=== PATIENT | male | born 1965 | race Caucasian/White ===

== ENCOUNTER 2018-08-11 12:25 | Inpatient (IN) | payer OTHER ==
--- NOTE | 2018-08-11 13:11 | HP ---
CIWA Score - CIWA Score Nausea/Vomitin Muscle Tremors: 2 Anxiety: 2 Agitation: 2 Paroxysmal Sweats: 1-Minimal Palms Moist Orientation: 0-Oriented Tacttile Disturbances: 1-Very Mild Itch/Numbness Auditory Disturbances: 1-Very Mild Visual Disturbances: 0-None Headache: 2-Mild CIWA-Ar Total Score: 13 Admission ROS BHS - HPI Chief Complaint: i need help to stop drinking alcohol Allergies/Adverse Reactions: Allergies Allergy/AdvReac Type Severity Reaction Status Date / Time Penicillins Allergy Verified 08/11/18 13:04 History of Present Illness: this 52 years old male with alcohol and marijuana dependence,seeking detox, withdrawal symptom,last detox aci 07/16 completed history of hypertension no med insomnia positive ppd weight loss depression longest period of sobriety 12 years depression,insomnia - Ebola screening Have you traveled outside of the country in the last 21 days: No (N) Have you had contact with anyone from an Ebola affected area: No Do you have a fever: No - Review of Systems Constitutional: Loss of Appetite, Malaise, Night Sweats, Changes in sleep, Weakness, Unintentional Wgt. Loss EENT: reports: Nose Congestion Respiratory: reports: No Symptoms reported Cardiac: reports: Palpitations GI: reports: Nausea, Indigestion, Abdominal cramping : reports: No Symptoms Reported Musculoskeletal: reports: Back Pain, Muscle Pain Integumentary: reports: Dryness Neuro: reports: Tremors Endocrine: reports: No Symptoms Reported Hematology: reports: No Symptoms Reported Psychiatric: reports: Depressed Patient History - Patient Medical History Hx Anemia: No Hx Asthma: No Hx Chronic Obstructive Pulmonary Disease (COPD): No Hx Cancer: No Hx Cardiac Disorders: No Hx Congestive Heart Failure: No Hx Hypertension: Yes (no med) Hx Hypercholesterolemia: No Hx Pacemaker: No HX Cerebrovascular Accident: No Hx Seizures: No Hx Dementia: No Hx Diabetes: No Hx Gastrointestinal Disorders: No Hx Liver Disease: No Hx Genitourinary Disorders: No Hx Sexually Transmitted Disorders: No Hx Renal Disease (ESRD): No Hx Thyroid Disease: No Hx Human Immunodeficiency Virus (HIV): No (2017) Hx Hepatitis C: No Hx Depression: Yes Hx Suicide Attempt: No Hx Bipolar Disorder: No Hx Schizophrenia: No Other Medical History: insomnia,no suicidal,no homicidal - Patient Surgical History Past Surgical History: No - PPD History Previous Implant?: Yes Documented Results: Positive w/o proof PPD to be Administered?: No - Smoking Cessation Smoking history: Current every day smoker Have you smoked in the past 12 months: Yes Aproximately how many cigarettes per day: 10 Hx Chewing Tobacco Use: No Initiated information on smoking cessation: Yes 'Breaking Loose' booklet given: 08/11/18 - Substance & Tx. History Hx Alcohol Use: Yes Hx Substance Use: Yes Substance Use Type: Alcohol Hx Substance Use Treatment: Yes (last 07/16 completed) - Substances Abused Alcohol Route: Oral Frequency: Daily Amount used: 2pints of whiskey/6 packs of 12 ozs of beer Age of first use: 21 Date of Last Use: 08/10/18 Family Disease History - Family Disease History Family Disease History: Other: Father (), Mother (chunghrosis,) Admission Physical Exam S - Vital Signs Vital Signs: Vital Signs Temperature 97.3 F L 08/12/18 06:00 Pulse Rate 70 08/12/18 06:00 Respiratory Rate 18 08/12/18 06:00 Blood Pressure 134/93 08/12/18 06:00 O2 Sat by Pulse Oximetry (%) - Physical General Appearance: Yes: Moderate Distress, Tremorous, Irritable, Sweating, Anxious HEENTM: Yes: Normal ENT Inspection, NESSA, Pharynx Normal Respiratory: Yes: Lungs Clear, Normal Breath Sounds, No Respiratory Distress Neck: Yes: Within Normal Limits, Supple, Trachea in good position Breast: Yes: Within Normal Limits Cardiology: Yes: Within Normal Limits, Regular Rhythm, Regular Rate, S1, S2 Abdominal: Yes: Within Normal Limits, Normal Bowel Sounds, Non Tender, Flat, Soft Genitourinary: Yes: Within Normal Limits Back: Yes: Muscle Spasm Musculoskeletal: Yes: Back pain, Muscle Pain Extremities: Yes: Tremors Neurological: Yes: Alert, Motor Strength 5/5, Normal Mood/Affect Integumentary: Yes: Dry Lymphatic: Yes: Within Normal Limits - Diagnostic (1) Alcohol dependence with uncomplicated withdrawal Current Visit: Yes Status: Acute (2) Syncope Current Visit: Yes Status: Acute (3) Essential hypertension Current Visit: Yes Status: Acute (4) Weight loss Current Visit: Yes Status: Acute (5) Positive PPD Current Visit: Yes Status: Acute (6) Depression Current Visit: Yes Status: Acute (7) Anxiety Current Visit: Yes Status: Acute Cleared for Admission S - Detox or Rehab [facility] Level of Care: Medically Managed Detox Regimen/Protocol: Librium
[2018-08-11 13:26] VITALS: BMI 23.6
[2018-08-11] MEDS ORDERED: ACETAMINOPHEN 325 MG TABLET (FP) PO PRN (13:28)
[2018-08-11] MEDS ORDERED: IBUPROFEN 400 MG TABLET (FP) PO PRN (13:28)
[2018-08-11] MEDS ORDERED: hydrOXYzine PAMOATE 25 MG CAPSULE (FP) PO PRN (13:28)
[2018-08-11] MEDS ORDERED: MAGNESIUM HYDROX 2400MG/30ML ORAL SUSPENSION 30 ML CUP PO PRN (13:28)
[2018-08-11] MEDS ORDERED: P-EPHED 60MG/TRIPROLIDI 2.5MG TABLET PO PRN (13:28)
[2018-08-11] MEDS ORDERED: LOPERAMIDE HCL 2 MG CAPSULE PO PRN (13:28)
[2018-08-11] MEDS ORDERED: MENTHOL/PHENOL 1 EACH UD MM PRN (13:28)
[2018-08-11] MEDS ORDERED: MAGNESIUM CITRATE 300 ML BOTTLE PO PRN (13:28)
[2018-08-11] MEDS ORDERED: MAG HYDROX/AL HYDROX/SIMETH 30 ML UNIT-DOSE CUP PO PRN (13:28)
[2018-08-11 17:11] LABS: URINE APPEARANCE CLEAR; URINE BILIRUBIN NEGATIVE (<2.0 mg/dL); URINE COLOR LTYELLOW; URINE GLUCOSE (UA) NEGATIVE (NEGATIVE); URINE KETONE NEGATIVE (NEGATIVE); URINE LEUK ESTERASE NEGATIVE (NEGATIVE); URINE NITRITE NEGATIVE (NEGATIVE); URINE PROTEIN NEGATIVE (NEGATIVE); URINE UROBILINOGEN NEGATIVE mg/dL (0.2-1.0)
[2018-08-11] MEDS ORDERED: chlordiazePOXIDE HCL 25 MG CAPSULE PO PRN (17:15)
[2018-08-11] MEDS: NICOTINE 21 MG/24 HOURS TOPICAL PATCH TD SCH (18:04)
[2018-08-11] MEDS: chlordiazePOXIDE HCL 25 MG CAPSULE PO SCH (22:55)
[2018-08-11] MEDS: THIAMINE HCL 100 MG TABLET (FP) PO SCH (22:56)
[2018-08-12] MEDS: chlordiazePOXIDE HCL 25 MG CAPSULE PO SCH ×4 (06:43→22:46)
--- NOTE | 2018-08-12 07:38 | CONSULT ---
[facility] Psychiatric Consult - Data Date of interview: 08/12/18 Admission source: [facility] Identifying data: This is a 52 years old male, single father of one, homless, on PA, with no psychiatric hospitalization history, reports Alcohol and Nicotine dependence, reports Alcohol withdrawal symptoms and seeking detox. Denies suicdial, homicidal history. Substance Abuse History: Smoking history: Current every day smoker. Have you smoked in the past 12 months: Yes. Aproximately how many cigarettes per day: 10. Hx Chewing Tobacco Use: No. Initiated information on smoking cessation: Yes. 'Breaking Loose' booklet given: 08/11/18. - Substance & Tx. History. Hx Alcohol Use: Yes. Hx Substance Use: Yes. Substance Use Type: Alcohol. Hx Substance Use Treatment: Yes (last 07/16 completed). - Substances Abused. Alcohol. Route: Oral. Frequency: Daily. Amount used: 2pints of whiskey/6 packs of 12 ozs of beer. Age of first use: 21. Date of Last Use: 08/10/18 Medical History: HTN, Weight loss history, PPD + history Psychiatric History: Patient reports history of depression and anxiety, denies psychiatric hospitalization history, suicidal, homicisdal hisotry, reports no medications taking prior to admission. Physical/Sexual Abuse/Trauma History: Denies Additional Comment: Observation. Detox Unit Carev Protocol Mental Status Exam - Mental Status Exam Alert and Oriented to: Person Cognitive Function: Fair Mood: Apprehensive Affect: Mood Congruent Patient Behavior: Cooperative Speech Pattern: Appropriate Voice Loudness: Normal Thought Process: Goal Oriented Thought Disorder: Being Controlled Hallucinations: Denies Suicidal Ideation: Denies Homicidal Ideation: Denies Insight/Judgement: Fair Sleep: Difficulty falling asleep Appetite: Weight loss Muscle strength/Tone: Normal Gait/Station: Normal Additional Comments: Observation. Detox Unit Carev Protocol Psychiatric Findings - Problem List ([place] 1, 2,3) (1) Nicotine dependence Current Visit: Yes Status: Acute (2) Alcohol dependence with uncomplicated withdrawal Current Visit: Yes Status: Acute (3) Depression Current Visit: Yes Status: Acute (4) Essential hypertension Current Visit: Yes Status: Acute (5) Positive PPD Current Visit: Yes Status: Acute (6) Syncope Current Visit: Yes Status: Acute (7) Weight loss Current Visit: Yes Status: Acute - Initial Treatment Plan Initial Treatment Plan: Observation. Detox Unit Carev Protocol
[2018-08-12 10:14] LABS: HEMATOCRIT 37.8 % (35.4-49); HEMOGLOBIN 12.7 GM/dL (11.7-16.9); MCH 30.1 pg (25.7-33.7); MCHC 33.5 g/dl (32.0-35.9); MEAN CELL VOLUME 89.7 fl (80-96); MEAN PLT VOLUME 8.2 fl (7.5-11.1); PLATELET COUNT 225 K/MM3 (134-434); RBC 4.21 M/mm3 (4.00-5.60); RDW 12.8 % (11.9-15.9); WHITE BLOOD COUNT 7.9 K/mm3 (4.0-10.0)
[2018-08-12] MEDS: PRENATAL VITAMINS W/ FOLIC ACID TABLET (FP) PO SCH (10:17)
[2018-08-12] MEDS: NICOTINE POLACRILEX 2 MG GUM BUC PRN (10:17)
[2018-08-12] MEDS: NICOTINE 21 MG/24 HOURS TOPICAL PATCH TD SCH (10:17)
[2018-08-12 10:40] LABS: ALBUMIN 3.4 g/dl (3.4-5.0); ALK PHOS 71 U/L (45-117); ANION GAP 4 MMOL/L (8-16); BILIRUBIN,TOTAL 0.3 mg/dL (0.2-1); BLOOD UREA NITROGEN 11 mg/dL (7-18); CALCIUM 9.1 mg/dL (8.5-10.1); CHLORIDE 104 mmol/L (98-107); CO2 27 mmol/L (21-32); CREATININE 0.6 mg/dL (0.55-1.3); GLUCOSE,RANDOM 74 mg/dL (74-106); POTASSIUM 4.3 mmol/L (3.5-5.1); SGOT/AST 16 U/L (15-37); SGPT/ALT 25 U/L (13-61); SODIUM 136 mmol/L (136-145); TOT PROT 6.8 g/dl (6.4-8.2)
--- NOTE | 2018-08-12 10:42 | EKG ---
Test Reason : Blood Pressure : / mmHG Vent. Rate : 071 BPM Atrial Rate : 071 BPM P-R Int : 186 ms QRS Dur : 108 ms QT Int : 400 ms P-R-T Axes : 075 -11 068 degrees QTc Int : 434 ms NORMAL SINUS RHYTHM RIGHT ATRIAL ENLARGEMENT BORDERLINE ECG NO PREVIOUS ECGS AVAILABLE Confirmed by VANESSA AGUIRRE MD ([id number]) on 08/12/2018 10:42:00 AM Referred By: Confirmed By:VANESSA AGUIRRE MD
--- NOTE | 2018-08-12 11:11 | PN ---
S CIWA - CIWA Score Nausea/Vomitin-No Nausea/No Vomiting Muscle Tremors: 4-Moderate,w/Arms Extend Anxiety: 4-Mod. Anxious/Guarded Agitation: 4-Moderately Restless Paroxysmal Sweats: 3 Orientation: 0-Oriented Tacttile Disturbances: 0-None Auditory Disturbances: 0-None Visual Disturbances: 0-None Headache: 0-None Present CIWA-Ar Total Score: 15 BHS Progress Note (SOAP) Subjective: irritable agitation interrupted sleep diarrhea sweats Objective: 08/12/18 11:09 Vital Signs Temperature 99.0 F 08/12/18 09:12 Pulse Rate 72 08/12/18 09:12 Respiratory Rate 18 08/12/18 09:12 Blood Pressure 130/91 08/12/18 09:12 O2 Sat by Pulse Oximetry (%) Laboratory Tests 08/11/18 08/12/18 08/12/18 15:04 07:00 07:00 WBC 7.9 RBC 4.21 Hgb 12.7 Hct 37.8 MCV 89.7 MCH 30.1 MCHC 33.5 RDW 12.8 Plt Count 225 MPV 8.2 Sodium 136 Potassium 4.3 Chloride 104 Carbon Dioxide 27 Anion Gap 4 L BUN 11 Creatinine 0.6 Creat Clearance w eGFR > 60 Random Glucose 74 Calcium 9.1 Total Bilirubin 0.3 AST 16 ALT 25 Alkaline Phosphatase 71 Total Protein 6.8 Albumin 3.4 Urine Color Ltyellow Urine Appearance Clear Urine pH 7.0 Ur Specific [place] 1.017 Urine Protein Negative Urine Glucose (UA) Negative Urine Ketones Negative Urine Blood Negative Urine Nitrite Negative Urine Bilirubin Negative Urine Urobilinogen Negative Ur Leukocyte Esterase Negative aaox3 ambulating no acute distress Assessment: 08/12/18 11:10 withdrawal sx Plan: continue detox increase fluids encouraged pt to ask for sleeping aide this evening.
[2018-08-12] MEDS ORDERED: FLU VACCINE QUAD 60 MCG/0.5 ML (MDV 18-19) IM ONE (12:00)
[2018-08-12] MEDS: MELATONIN 5 MG TABLETS PO PRN (22:46)
[2018-08-12] MEDS: THIAMINE HCL 100 MG TABLET (FP) PO SCH (22:46)
[2018-08-13] MEDS: chlordiazePOXIDE HCL 25 MG CAPSULE PO SCH ×3 (07:24→17:36)
--- NOTE | 2018-08-13 11:24 | PN ---
[facility] CIWA - CIWA Score Nausea/Vomitin-No Nausea/No Vomiting Muscle Tremors: 3 Anxiety: 3 Agitation: 2 Paroxysmal Sweats: 2 Orientation: 0-Oriented Tacttile Disturbances: 0-None Auditory Disturbances: 0-None Visual Disturbances: 0-None Headache: 0-None Present CIWA-Ar Total Score: 10 [facility] Progress Note (SOAP) Subjective: mild shakes little sweats coughing Objective: 08/13/18 11:23 Vital Signs Temperature 98.2 F 08/13/18 09:43 Pulse Rate 89 08/13/18 09:43 Respiratory Rate 20 08/13/18 09:43 Blood Pressure 129/93 08/13/18 09:43 O2 Sat by Pulse Oximetry (%) Laboratory Tests 08/11/18 08/12/18 08/12/18 15:04 07:00 07:00 WBC 7.9 RBC 4.21 Hgb 12.7 Hct 37.8 MCV 89.7 MCH 30.1 MCHC 33.5 RDW 12.8 Plt Count 225 MPV 8.2 Sodium 136 Potassium 4.3 Chloride 104 Carbon Dioxide 27 Anion Gap 4 L BUN 11 Creatinine 0.6 Creat Clearance w eGFR > 60 Random Glucose 74 Calcium 9.1 Total Bilirubin 0.3 AST 16 ALT 25 Alkaline Phosphatase 71 Total Protein 6.8 Albumin 3.4 Urine Color Ltyellow Urine Appearance Clear Urine pH 7.0 Ur Specific [place] 1.017 Urine Protein Negative Urine Glucose (UA) Negative Urine Ketones Negative Urine Blood Negative Urine Nitrite Negative Urine Bilirubin Negative Urine Urobilinogen Negative Ur Leukocyte Esterase Negative RPR Titer 08/12/18 07:00 WBC RBC Hgb Hct MCV MCH MCHC RDW Plt Count MPV Sodium Potassium Chloride Carbon Dioxide Anion Gap BUN Creatinine Creat Clearance w eGFR Random Glucose Calcium Total Bilirubin AST ALT Alkaline Phosphatase Total Protein Albumin Urine Color Urine Appearance Urine pH Ur Specific [place] Urine Protein Urine Glucose (UA) Urine Ketones Urine Blood Urine Nitrite Urine Bilirubin Urine Urobilinogen Ur Leukocyte Esterase RPR Titer Nonreactive aaox3 ambulating no acute distress Assessment: 08/13/18 11:23 withdrawal sx Plan: continue detox increase fluids robitussion prn
[2018-08-13] MEDS: PRENATAL VITAMINS W/ FOLIC ACID TABLET (FP) PO SCH (11:53)
[2018-08-13] MEDS: NICOTINE 21 MG/24 HOURS TOPICAL PATCH TD SCH (11:53)
[2018-08-13] MEDS: guaiFENesin/D-METHORPHAN HB 10 ML UNIT-DOSE CUPS PO PRN (14:17)
[2018-08-13] MEDS: chlordiazePOXIDE 5 MG CAPSULE PO SCH (22:13)
[2018-08-13] MEDS: THIAMINE HCL 100 MG TABLET (FP) PO SCH (22:13)
[2018-08-13] MEDS: MELATONIN 5 MG TABLETS PO PRN (22:15)
[2018-08-14] MEDS: guaiFENesin/D-METHORPHAN HB 10 ML UNIT-DOSE CUPS PO PRN (06:49)
[2018-08-14] MEDS: chlordiazePOXIDE 5 MG CAPSULE PO SCH ×3 (06:49→18:00)
[2018-08-14] MEDS: NICOTINE POLACRILEX 2 MG GUM BUC PRN (06:50)
--- NOTE | 2018-08-14 10:39 | PN ---
BHS Progress Note (SOAP) Subjective: feeling better little sweats Objective: 08/14/18 10:37 Vital Signs Temperature 98.3 F 08/14/18 10:10 Pulse Rate 85 08/14/18 10:10 Respiratory Rate 18 08/14/18 10:10 Blood Pressure 156/96 08/14/18 10:10 O2 Sat by Pulse Oximetry (%) aaox3 ambulating no acute distress Assessment: 08/14/18 10:39 withdrawal sx Plan: continue detox increase fluids d/c in am
[2018-08-14] MEDS: PRENATAL VITAMINS W/ FOLIC ACID TABLET (FP) PO SCH (11:08)
[2018-08-14] MEDS: NICOTINE 21 MG/24 HOURS TOPICAL PATCH TD SCH (11:08)
[2018-08-14] MEDS: THIAMINE HCL 100 MG TABLET (FP) PO SCH (23:13)
[2018-08-14] MEDS: chlordiazePOXIDE HCL 10 MG CAPSULE PO SCH (23:13)
[2018-08-14] MEDS: MELATONIN 5 MG TABLETS PO PRN (23:14)
[2018-08-15] MEDS: chlordiazePOXIDE HCL 10 MG CAPSULE PO SCH ×2 (05:42→10:00)
[2018-08-15] MEDS: guaiFENesin/D-METHORPHAN HB 10 ML UNIT-DOSE CUPS PO PRN (05:43)
--- NOTE | 2018-08-15 09:05 | DS ---
[facility] Detox Discharge Summary Admission Date: 08/11/18 Discharge Date: 08/15/18 - History Present History: Alcohol Dependence - Physical Exam Results Vital Signs: Vital Signs Temperature 98.1 F 08/15/18 08:11 Pulse Rate 81 08/15/18 08:11 Respiratory Rate 18 08/15/18 08:11 Blood Pressure 130/93 08/15/18 08:11 O2 Sat by Pulse Oximetry (%) - Treatment Hospital Course: Detox Protocol Followed, Detoxed Safely, Responded well, Discharged Condition Good, Rehab Referral Accepted - Medication Discharge Medications: Ambulatory Orders NK [No Known Home Medication] 08/11/18 - Diagnosis (1) Alcohol dependence with uncomplicated withdrawal Current Visit: Yes Status: Chronic (2) Anxiety Current Visit: Yes Status: Acute (3) Depression Current Visit: Yes Status: Acute (4) Essential hypertension Current Visit: Yes Status: Chronic (5) Nicotine dependence Current Visit: Yes Status: Chronic Qualifiers: Nicotine product type: cigarettes Substance use status: uncomplicated Qualified Code(s): F17.210 - Nicotine dependence, cigarettes, uncomplicated (6) Positive PPD Current Visit: Yes Status: Acute (7) Syncope Current Visit: Yes Status: Acute (8) Weight loss Current Visit: Yes Status: Acute - AMA Did Patient Leave Against Medical Advice: No (referred to outpatient. pt refused to go to [facility]. )
[2018-08-15 11:41] VITALS: BP 125/80; PULSE 97; TEMP 98.4
[2018-08-15] MEDS: NICOTINE 21 MG/24 HOURS TOPICAL PATCH TD SCH (12:21)
[2018-08-15] MEDS: PRENATAL VITAMINS W/ FOLIC ACID TABLET (FP) PO SCH (12:21)
== END 2018-08-15 10:40 | disposition home or self-care (01) | DRG 775 ==
LOC: YASAS 12:25 → Y6N 14:15
PROC: HZ2ZZZZ Detoxification Services for Substance Abuse Treatment (ICD-10-PCS; principal; 2018-08-11)
DX: F10.230 Alcohol dependence with withdrawal, uncomplicated (principal); F17.210 Nicotine dependence, cigarettes, uncomplicated; F41.9 Anxiety disorder, unspecified; F32.9 Major depressive disorder, single episode, unspecified; R76.11 Nonspecific reaction to tuberculin skin test without active tuberculosis; Z87.898 Personal history of other specified conditions
CPT/HCPCS: 36415; 71046-TC-FY; 80053; 81003; 85027; 86593; 90688; 93005; 93010; G0008

== ENCOUNTER 2018-12-18 10:08 | Inpatient (IN) | payer OTHER ==
[2018-12-18 10:11] VITALS: BMI 26.4
--- NOTE | 2018-12-18 13:44 | HP ---
CIWA Score Nausea/Vomitin Muscle Tremors: 2 Anxiety: 2 Agitation: 2 Paroxysmal Sweats: 1-Minimal Palms Moist Orientation: 0-Oriented Tacttile Disturbances: 1-Very Mild Itch/Numbness Auditory Disturbances: 1-Very Mild Visual Disturbances: 0-None Headache: 2-Mild CIWA-Ar Total Score: 13 - Admission Criteria [facility] Guidelines: Admission for Medically Managed Detox: Requires at least one of the followin. CIWA greater than 12 2. Seizures within the past 24 hours 3. Delirium tremens within the past 24 hours 4. Hallucinations within the past 24 hours 5. Acute intervention needed for co occurring medical disorder 6. Acute intervention needed for co occurring psychiatric disorder 7. Severe withdrawal that cannot be handled at a lower level of care (continued vomiting, continued diarrhea, abnormal vital signs) requiring intravenous medication and/or fluids 8. Patient presents the following: CIWA greater than 12 Admission Criteria Met: Admission criteria met Admission ROS BHS - HPI Chief Complaint: i need help to stop drinking alcohol Allergies/Adverse Reactions: Allergies Allergy/AdvReac Type Severity Reaction Status Date / Time Penicillins Allergy Verified 12/18/18 13:37 History of Present Illness: this 53 years old male with alcohol dependence seeking detox,withdrawal symptom, last detox aci 10 days ago history of hypertension on med,non compliance nicotine dependence anxiety depression multiple admissions in detox but keep relapsing longest period of sobriety 10 years Exam Limitations: No Limitations - Ebola screening Have you traveled outside of the country in the last 21 days: No Have you had contact with anyone from an Ebola affected area: No Have you been sick,other than usual withdrawal symptoms: No - Review of Systems Constitutional: Malaise, Night Sweats, Changes in sleep, Weakness EENT: reports: Tearing, Nose Congestion Respiratory: reports: No Symptoms reported Cardiac: reports: No Symptoms Reported GI: reports: Nausea, Abdominal cramping : reports: No Symptoms Reported Musculoskeletal: reports: Back Pain, Muscle Pain Integumentary: reports: Dryness Neuro: reports: Headache, Tremors Endocrine: reports: No Symptoms Reported Hematology: reports: No Symptoms Reported Psychiatric: reports: No Sypmtoms Reported, Judgement Intact, Mood/Affect Appropiate, Orientated x3, Anxious, Depressed Other Systems: Reviewed and Negative Patient History - Patient Medical History Hx Anemia: No Hx Asthma: No Hx Chronic Obstructive Pulmonary Disease (COPD): No Hx Cancer: No Hx Cardiac Disorders: No Hx Congestive Heart Failure: No Hx Hypertension: Yes (no med non comoliance) Hx Hypercholesterolemia: No Hx Pacemaker: No HX Cerebrovascular Accident: No Hx Seizures: No Hx Dementia: No Hx Diabetes: No Hx Gastrointestinal Disorders: No Hx Liver Disease: No Hx Genitourinary Disorders: No Hx Sexually Transmitted Disorders: No Hx Renal Disease (ESRD): No Hx Thyroid Disease: No Hx Human Immunodeficiency Virus (HIV): No (negative 2018) Hx Hepatitis C: No Hx Depression: Yes (anxiety) Hx Suicide Attempt: No Hx Bipolar Disorder: No Hx Schizophrenia: No Other Medical History: no suicidal,no homicidal - Patient Surgical History Past Surgical History: No Hx Neurologic Surgery: No Hx Cataract Extraction: No Hx Cardiac Surgery: No Hx Lung Surgery: No Hx Breast Surgery: No Hx Breast Biopsy: No Hx Abdominal Surgery: No Hx Appendectomy: No Hx Cholecystectomy: No Hx Genitourinary Surgery: No Hx Section: No Hx Orthopedic Surgery: No Anesthesia Reaction: No - PPD History Previous Implant?: Yes Documented Results: Positive w/proof Implanted On Prior R Admission?: No PPD to be Administered?: No - Smoking Cessation Smoking history: Current every day smoker Have you smoked in the past 12 months: Yes Aproximately how many cigarettes per day: 10 Hx Chewing Tobacco Use: No Initiated information on smoking cessation: Yes 'Breaking Loose' booklet given: 12/18/18 - Substance & Tx. History Hx Alcohol Use: Yes Hx Substance Use: Yes Substance Use Type: Alcohol, Marijuana Hx Substance Use Treatment: Yes (aci aci 12/04/18 to 12/08/18) - Substances Abused Alcohol Route: Oral Frequency: Daily Amount used: 1 pint rum Age of first use: 18 Date of Last Use: 12/18/18 Marijuana/Hashish Route: Smoking Frequency: Daily Amount used: $10 Age of first use: 18 Date of Last Use: 12/04/18 Family Disease History - Family Disease History Family Disease History: Other: Father (), Mother (alcohol,, cirrhosis) Admission Physical Exam BHS - Vital Signs Vital Signs: Vital Signs - 24 hr 12/18/18 10:10 Temperature 96.6 F L Pulse Rate 93 H Respiratory 18 Rate Blood Pressure 123/81 - Physical General Appearance: Yes: Moderate Distress, Irritable, Sweating, Anxious HEENTM: Yes: Normal ENT Inspection, NESSA, Pharynx Normal Respiratory: Yes: Lungs Clear, Normal Breath Sounds, No Respiratory Distress Neck: Yes: Within Normal Limits, Supple, Trachea in good position Breast: Yes: Within Normal Limits Cardiology: Yes: Within Normal Limits, Regular Rhythm, Regular Rate, S1, S2 Abdominal: Yes: Within Normal Limits, Normal Bowel Sounds, Non Tender, Flat, Soft Genitourinary: Yes: Within Normal Limits Back: Yes: Muscle Spasm Musculoskeletal: Yes: Back pain, Muscle Pain Extremities: Yes: Within Normal Limits, Normal Range of Motion, Tremors Neurological: Yes: property developer II-XII NML intact, Fully Oriented, Alert, Motor Strength 5/5 Integumentary: Yes: Dry Lymphatic: Yes: Within Normal Limits - Diagnostic (1) Alcohol dependence with uncomplicated withdrawal Current Visit: No Status: Chronic (2) Anxiety Current Visit: No Status: Acute (3) Depression Current Visit: No Status: Acute (4) Positive PPD Current Visit: No Status: Acute (5) Syncope Current Visit: No Status: Acute (6) Weight loss Current Visit: No Status: Acute (7) Essential hypertension Current Visit: No Status: Chronic (8) Nicotine dependence Current Visit: No Status: Chronic Qualifiers: Nicotine product type: cigarettes Substance use status: uncomplicated Qualified Code(s): F17.210 - Nicotine dependence, cigarettes, uncomplicated Cleared for Admission S - Detox or Rehab [facility] Level of Care: Medically Managed Detox Regimen/Protocol: Librium S Breath Alcohol Content Breath Alcohol Content: 0.026 Urine Drug Screen - Results Drug Screen Negative: No Urine Drug Screen Results: THC-Marijuana, BZO-Benzodiazepines Inpatient Rehab Admission - Rehab Decision to Admit Inpatient rehab admission?: No
[2018-12-18] MEDS ORDERED: chlordiazePOXIDE HCL 25 MG CAPSULE PO PRN (13:53)
[2018-12-18] MEDS ORDERED: LOPERAMIDE HCL 2 MG CAPSULE PO PRN (13:53)
[2018-12-18] MEDS ORDERED: MAG HYDROX/AL HYDROX/SIMETH 30 ML UNIT-DOSE CUP PO PRN (13:53)
[2018-12-18] MEDS ORDERED: ACETAMINOPHEN 325 MG TABLET (FP) PO PRN (13:53)
[2018-12-18] MEDS ORDERED: hydrOXYzine PAMOATE 50 MG CAPSULE (FP) PO PRN (13:53)
[2018-12-18] MEDS ORDERED: P-EPHED 60MG/TRIPROLIDI 2.5MG TABLET PO PRN (13:53)
[2018-12-18] MEDS ORDERED: MENTHOL/PHENOL 1 EACH UD MM PRN (13:53)
[2018-12-18] MEDS ORDERED: guaiFENesin/D-METHORPHAN HB 10 ML UNIT-DOSE CUPS PO PRN (13:53)
[2018-12-18] MEDS ORDERED: IBUPROFEN 400 MG TABLET (FP) PO PRN (13:53)
[2018-12-18] MEDS ORDERED: MAGNESIUM HYDROX 2400MG/30ML ORAL SUSPENSION 30 ML CUP PO PRN (13:53)
[2018-12-18] MEDS ORDERED: MAGNESIUM CITRATE 300 ML BOTTLE PO PRN (13:53)
[2018-12-18] MEDS: chlordiazePOXIDE HCL 25 MG CAPSULE PO SCH ×2 (18:07→22:47)
[2018-12-18 20:52] LABS: URINE APPEARANCE TURBID; URINE BILIRUBIN NEGATIVE (<2.0 mg/dL); URINE COLOR YELLOW; URINE GLUCOSE (UA) NEGATIVE (NEGATIVE); URINE KETONE NEGATIVE (NEGATIVE); URINE LEUK ESTERASE NEGATIVE (NEGATIVE); URINE NITRITE NEGATIVE (NEGATIVE); URINE PROTEIN NEGATIVE (NEGATIVE); URINE UROBILINOGEN NEGATIVE mg/dL (0.2-1.0)
[2018-12-18] MEDS ORDERED: MELATONIN 5 MG TABLETS PO PRN (22:00)
[2018-12-18] MEDS: THIAMINE HCL 100 MG TABLET (FP) PO SCH (22:47)
[2018-12-19] MEDS: chlordiazePOXIDE HCL 25 MG CAPSULE PO SCH ×4 (06:39→23:33)
[2018-12-19] MEDS: PRENATAL VITAMINS W/ FOLIC ACID TABLET (FP) PO SCH (10:09)
[2018-12-19] MEDS: NICOTINE 21 MG/24 HOURS TOPICAL PATCH TD SCH (10:10)
[2018-12-19 11:02] LABS: HEMATOCRIT 37.1 % (35.4-49); HEMOGLOBIN 12.8 GM/dL (11.7-16.9); MCH 30.6 pg (25.7-33.7); MCHC 34.5 g/dl (32.0-35.9); MEAN CELL VOLUME 88.6 fl (80-96); MEAN PLT VOLUME 8.9 fl (7.5-11.1); PLATELET COUNT 263 K/MM3 (134-434); RBC 4.19 M/mm3 (4.00-5.60); RDW 13.7 % (11.9-15.9); WHITE BLOOD COUNT 7.2 K/mm3 (4.0-10.0)
[2018-12-19 11:38] LABS: ALK PHOS 70 U/L (45-117); ANION GAP 6 MMOL/L (8-16); BILIRUBIN,TOTAL 0.2 mg/dL (0.2-1); BLOOD UREA NITROGEN 15 mg/dL (7-18); CALCIUM 8.9 mg/dL (8.5-10.1); CHLORIDE 104 mmol/L (98-107); CO2 28 mmol/L (21-32); CREATININE 0.9 mg/dL (0.55-1.3); GLUCOSE,RANDOM 87 mg/dL (74-106); POTASSIUM 3.9 mmol/L (3.5-5.1); SGOT/AST 19 U/L (15-37); SGPT/ALT 23 U/L (13-61); SODIUM 139 mmol/L (136-145); TOT PROT 7.7 g/dl (6.4-8.2)
--- NOTE | 2018-12-19 14:00 | PN ---
S CIWA - CIWA Score Nausea/Vomitin-No Nausea/No Vomiting Muscle Tremors: 3 Anxiety: 3 Agitation: 0-Normal Activity Paroxysmal Sweats: No Perspiration Orientation: 0-Oriented Tacttile Disturbances: 1-Very Mild Itch/Numbness Auditory Disturbances: 0-None Visual Disturbances: 2-Mild Sensitivity Headache: 3-Moderate CIWA-Ar Total Score: 12 BHS Progress Note (SOAP) Subjective: Tremors, H/A. Objective: PATIENT A & O X 3, OBSERVED AMBULATING ON UNIT. IN NO ACUTE DISTRESS. PATIENT REPORTS HISTORY OF HYPERTENSION, REPORTS THAT HE HAS TAKEN MEDICATION IN PAST, BUT IS UNABLE TO RECALL NAME. NO OUTPATIENT ANTI-HYPERTENSIVE MEDICATION NOTED ON ADMISSION. 12/19/18 14:01 Vital Signs Temperature 97.7 F 12/19/18 09:14 Pulse Rate 77 12/19/18 09:14 Respiratory Rate 18 12/19/18 09:14 Blood Pressure 127/79 12/19/18 09:14 O2 Sat by Pulse Oximetry (%) Laboratory Tests 12/18/18 12/19/18 12/19/18 18:58 06:24 06:24 WBC 7.2 RBC 4.19 Hgb 12.8 Hct 37.1 MCV 88.6 MCH 30.6 MCHC 34.5 RDW 13.7 Plt Count 263 MPV 8.9 Sodium 139 Potassium 3.9 Chloride 104 Carbon Dioxide 28 Anion Gap 6 L BUN 15 Creatinine 0.9 Creat Clearance w eGFR > 60 Random Glucose 87 Calcium 8.9 Total Bilirubin 0.2 AST 19 ALT 23 Alkaline Phosphatase 70 Total Protein 7.7 Albumin 4.0 Urine Color Yellow Urine Appearance Turbid Urine pH 5.0 D Ur Specific [place] 1.027 Urine Protein Negative Urine Glucose (UA) Negative Urine Ketones Negative Urine Blood Negative Urine Nitrite Negative Urine Bilirubin Negative Urine Urobilinogen Negative Ur Leukocyte Esterase Negative RPR Titer 12/19/18 06:24 WBC RBC Hgb Hct MCV MCH MCHC RDW Plt Count MPV Sodium Potassium Chloride Carbon Dioxide Anion Gap BUN Creatinine Creat Clearance w eGFR Random Glucose Calcium Total Bilirubin AST ALT Alkaline Phosphatase Total Protein Albumin Urine Color Urine Appearance Urine pH Ur Specific [place] Urine Protein Urine Glucose (UA) Urine Ketones Urine Blood Urine Nitrite Urine Bilirubin Urine Urobilinogen Ur Leukocyte Esterase RPR Titer Nonreactive LABS NOTED. 12/19/18 14:03 Assessment: 12/19/18 14:01 WITHDRAWAL SYMPTOMS. Plan: CONTINUE DETOX. CONTINUE TO MONITOR BP.
[2018-12-19] MEDS: THIAMINE HCL 100 MG TABLET (FP) PO SCH (23:33)
[2018-12-20] MEDS: chlordiazePOXIDE HCL 25 MG CAPSULE PO SCH ×2 (06:06→10:12)
[2018-12-20] MEDS: PRENATAL VITAMINS W/ FOLIC ACID TABLET (FP) PO SCH (10:11)
--- NOTE | 2018-12-20 10:55 | PN ---
S CIWA - CIWA Score Nausea/Vomitin Muscle Tremors: 2 Anxiety: 2 Agitation: 2 Paroxysmal Sweats: 3 Orientation: 0-Oriented Tacttile Disturbances: 1-Very Mild Itch/Numbness Auditory Disturbances: 0-None Visual Disturbances: 0-None Headache: 0-None Present CIWA-Ar Total Score: 12 BHS Progress Note (SOAP) Subjective: interrupted sleep, sweats ,shakes, decreased appetite, but better . Objective: 12/20/18 10:53 Vital Signs Temperature 98.6 F 12/20/18 08:46 Pulse Rate 87 12/20/18 08:46 Respiratory Rate 18 12/20/18 08:46 Blood Pressure 141/89 12/20/18 08:46 O2 Sat by Pulse Oximetry (%) Laboratory Tests 12/18/18 12/19/18 12/19/18 18:58 06:24 06:24 WBC 7.2 RBC 4.19 Hgb 12.8 Hct 37.1 MCV 88.6 MCH 30.6 MCHC 34.5 RDW 13.7 Plt Count 263 MPV 8.9 Sodium 139 Potassium 3.9 Chloride 104 Carbon Dioxide 28 Anion Gap 6 L BUN 15 Creatinine 0.9 Creat Clearance w eGFR > 60 Random Glucose 87 Calcium 8.9 Total Bilirubin 0.2 AST 19 ALT 23 Alkaline Phosphatase 70 Total Protein 7.7 Albumin 4.0 Urine Color Yellow Urine Appearance Turbid Urine pH 5.0 D Ur Specific [place] 1.027 Urine Protein Negative Urine Glucose (UA) Negative Urine Ketones Negative Urine Blood Negative Urine Nitrite Negative Urine Bilirubin Negative Urine Urobilinogen Negative Ur Leukocyte Esterase Negative RPR Titer 12/19/18 06:24 WBC RBC Hgb Hct MCV MCH MCHC RDW Plt Count MPV Sodium Potassium Chloride Carbon Dioxide Anion Gap BUN Creatinine Creat Clearance w eGFR Random Glucose Calcium Total Bilirubin AST ALT Alkaline Phosphatase Total Protein Albumin Urine Color Urine Appearance Urine pH Ur Specific [place] Urine Protein Urine Glucose (UA) Urine Ketones Urine Blood Urine Nitrite Urine Bilirubin Urine Urobilinogen Ur Leukocyte Esterase RPR Titer Nonreactive pt aox3 in nad lying in bed Assessment: 12/20/18 10:53 withdrawal sx's Plan: cont. detox increase fluids ensure bid
[2018-12-20] MEDS: NICOTINE 21 MG/24 HOURS TOPICAL PATCH TD SCH (11:05)
[2018-12-20] MEDS: chlordiazePOXIDE 5 MG CAPSULE PO SCH ×2 (17:23→23:21)
[2018-12-20] MEDS: THIAMINE HCL 100 MG TABLET (FP) PO SCH (23:21)
[2018-12-21] MEDS: chlordiazePOXIDE 5 MG CAPSULE PO SCH ×2 (06:54→10:30)
[2018-12-21 09:56] VITALS: BP 120/61; PULSE 72; TEMP 98.2
[2018-12-21] MEDS: NICOTINE 21 MG/24 HOURS TOPICAL PATCH TD SCH (10:30)
[2018-12-21] MEDS: PRENATAL VITAMINS W/ FOLIC ACID TABLET (FP) PO SCH (10:30)
--- NOTE | 2018-12-21 11:38 | DS ---
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 PT REPORTS HE ULTIMATELY WOULD LIKE TO DO REHAB. PT WAS SEEN BY COUNSELOR CARLA BEFORE EXITING. ALERT O X 3. NAD. Pertinent Past History: HTN-NO MEDS - Physical Exam Results Vital Signs: Vital Signs Temperature 98.2 F 12/21/18 09:55 Pulse Rate 72 12/21/18 09:55 Respiratory Rate 16 12/21/18 09:55 Blood Pressure 120/61 12/21/18 09:55 O2 Sat by Pulse Oximetry (%) Pertinent Admission Physical Exam Findings: WITHDRAWAL SX Laboratory Tests 12/18/18 12/19/18 12/19/18 18:58 06:24 06:24 WBC 7.2 RBC 4.19 Hgb 12.8 Hct 37.1 MCV 88.6 MCH 30.6 MCHC 34.5 RDW 13.7 Plt Count 263 MPV 8.9 Sodium 139 Potassium 3.9 Chloride 104 Carbon Dioxide 28 Anion Gap 6 L BUN 15 Creatinine 0.9 Creat Clearance w eGFR > 60 Random Glucose 87 Calcium 8.9 Total Bilirubin 0.2 AST 19 ALT 23 Alkaline Phosphatase 70 Total Protein 7.7 Albumin 4.0 Urine Color Yellow Urine Appearance Turbid Urine pH 5.0 D Ur Specific [place] 1.027 Urine Protein Negative Urine Glucose (UA) Negative Urine Ketones Negative Urine Blood Negative Urine Nitrite Negative Urine Bilirubin Negative Urine Urobilinogen Negative Ur Leukocyte Esterase Negative RPR Titer 12/19/18 06:24 WBC RBC Hgb Hct MCV MCH MCHC RDW Plt Count MPV Sodium Potassium Chloride Carbon Dioxide Anion Gap BUN Creatinine Creat Clearance w eGFR Random Glucose Calcium Total Bilirubin AST ALT Alkaline Phosphatase Total Protein Albumin Urine Color Urine Appearance Urine pH Ur Specific [place] Urine Protein Urine Glucose (UA) Urine Ketones Urine Blood Urine Nitrite Urine Bilirubin Urine Urobilinogen Ur Leukocyte Esterase RPR Titer Nonreactive - Treatment Hospital Course: Discharged Condition Good - Medication Discharge Medications: Ambulatory Orders NK [No Known Home Medication] 08/11/18 - Diagnosis (1) Alcohol dependence with uncomplicated withdrawal Current Visit: Yes Status: Acute (2) Essential hypertension Current Visit: Yes Status: Chronic (3) Nicotine dependence Current Visit: Yes Status: Acute Qualifiers: Nicotine product type: cigarettes Substance use status: in withdrawal Qualified Code(s): F17.213 - Nicotine dependence, cigarettes, with withdrawal - AMA Did Patient Leave Against Medical Advice: Yes (AMA)
[2018-12-21] MEDS ORDERED: chlordiazePOXIDE HCL 10 MG CAPSULE PO SCH (17:00)
== END 2018-12-21 11:05 | disposition left against medical advice (07) | DRG 770 ==
LOC: YASAS 10:08 → Y6N 14:19
PROVIDERS: ADMIT Surgery; ATTEND Surgery
PROC: HZ2ZZZZ Detoxification Services for Substance Abuse Treatment (ICD-10-PCS; principal; 2018-12-18)
DX: F10.230 Alcohol dependence with withdrawal, uncomplicated (principal); F17.213 Nicotine dependence, cigarettes, with withdrawal; F41.9 Anxiety disorder, unspecified; F32.9 Major depressive disorder, single episode, unspecified; I10 Essential (primary) hypertension; R76.11 Nonspecific reaction to tuberculin skin test without active tuberculosis; Z91.14 Patient's other noncompliance with medication regimen; Z88.0 Allergy status to penicillin
CPT/HCPCS: 36415; 80053; 81003; 85027; 86593

== ENCOUNTER 2019-02-11 13:59 | Inpatient (IN) | payer OTHER ==
[2019-02-11 18:01] VITALS: BMI 27.1
--- NOTE | 2019-02-11 18:13 | HP ---
CIWA Score Nausea/Vomitin-Int. Nausea w/Dry Heave Muscle Tremors: 2 Anxiety: 3 Agitation: 0-Normal Activity Paroxysmal Sweats: 2 Orientation: 0-Oriented Tacttile Disturbances: 1-Very Mild Itch/Numbness Auditory Disturbances: 1-Very Mild Visual Disturbances: 1-Very Mild Sensitivity Headache: 1-Very Mild CIWA-Ar Total Score: 15 - Admission Criteria OAS Guidelines: Admission for Medically Managed Detox: Requires at least one of the followin. CIWA greater than 12 2. Seizures within the past 24 hours 3. Delirium tremens within the past 24 hours 4. Hallucinations within the past 24 hours 5. Acute intervention needed for co occurring medical disorder 6. Acute intervention needed for co occurring psychiatric disorder 7. Severe withdrawal that cannot be handled at a lower level of care (continued vomiting, continued diarrhea, abnormal vital signs) requiring intravenous medication and/or fluids 8. Patient presents the following: CIWA greater than 12 Admission Criteria Met: Admission criteria met Admission ROS [facility] Chief Complaint: alcohol detox Allergies/Adverse Reactions: Allergies Allergy/AdvReac Type Severity Reaction Status Date / Time Penicillins Allergy Verified 12/18/18 13:37 History of Present Illness: 53 yo male with hx of alcohol and nicotine dependence is here seeking detox, last detox [facility] 12/18/18 -12/21/18. Longest period of sobriety 10 years reports relapsed in 2009 has been unable to maintain sobriety. Reports arrested 02/09/19 for public intoxication and was advised to go to detox. PMHX: HTN. Psych: anxiety and depression reports currently meds. Denies hx of seizures or blackouts. Exam Limitations: No Limitations - Ebola screening Have you traveled outside of the country in the last 21 days: No (N) Have you had contact with anyone from an Ebola affected area: No Do you have a fever: No - Review of Systems Constitutional: Loss of Appetite, Night Sweats, Changes in sleep, Unexplained wgt Loss EENT: reports: No Symptoms Reported Respiratory: reports: No Symptoms reported Cardiac: reports: No Symptoms Reported GI: reports: Nausea, Poor Appetite, Poor Fluid Intake, Vomiting Musculoskeletal: reports: Back Pain Integumentary: reports: No Symptoms Reported Neuro: reports: Headache Endocrine: reports: Increased Thirst Hematology: reports: No Symptoms Reported Psychiatric: reports: Orientated x3, Anxious Other Systems: Reviewed and Negative Patient History - Patient Medical History Hx Anemia: No Hx Asthma: No Hx Chronic Obstructive Pulmonary Disease (COPD): No Hx Cancer: No Hx Cardiac Disorders: No Hx Congestive Heart Failure: No Hx Hypertension: Yes (no med non compliance) Hx Hypercholesterolemia: No Hx Pacemaker: No HX Cerebrovascular Accident: No Hx Seizures: No Hx Dementia: No Hx Diabetes: No Hx Gastrointestinal Disorders: No Hx Liver Disease: No Hx Genitourinary Disorders: No Hx Sexually Transmitted Disorders: No Hx Renal Disease (ESRD): No Hx Thyroid Disease: No Hx Human Immunodeficiency Virus (HIV): No (negative 2018) Hx Hepatitis C: No Hx Depression: Yes (anxiety) Hx Suicide Attempt: No Hx Bipolar Disorder: No Hx Schizophrenia: No - Patient Surgical History Past Surgical History: No Hx Neurologic Surgery: No Hx Cataract Extraction: No Hx Cardiac Surgery: No Hx Lung Surgery: No Hx Breast Surgery: No Hx Breast Biopsy: No Hx Abdominal Surgery: No Hx Appendectomy: No Hx Cholecystectomy: No Hx Genitourinary Surgery: No Hx Section: No Hx Orthopedic Surgery: No Anesthesia Reaction: No - PPD History Previous Implant?: No Date: 08/12/18 Results: neg chest x-ray PPD to be Administered?: No - Smoking Cessation Smoking history: Current every day smoker Have you smoked in the past 12 months: Yes Aproximately how many cigarettes per day: 10 Hx Chewing Tobacco Use: No Initiated information on smoking cessation: Yes 'Breaking Loose' booklet given: 02/11/19 - Substance & Tx. History Hx Alcohol Use: Yes Hx Substance Use: Yes Substance Use Type: Alcohol Hx Substance Use Treatment: Yes (last detox [facility] 11/2018 -12/21/18.) - Substances abused Alcohol Substance route: Oral Frequency: Daily Amount used: 1 x six pack beer + 1/2 pint Age of first use: 30 (drinking has worsen in past 10year, drinks current amount ) Date of last use: 02/09/19 Family Disease History - Family Disease History Family Disease History: Other: Father (), Mother (alcohol,, cirrhosis) Admission Physical Exam BHS - Vital Signs Vital Signs: Vital Signs - 24 hr 02/11/19 18:00 Temperature 98.6 F Pulse Rate 81 Respiratory 18 Rate Blood Pressure 142/83 - Physical General Appearance: Yes: Appropriately Dressed, Mild Distress, Tremorous, Sweating, Anxious HEENTM: Yes: EOMI, Hearing grossly Normal, Normal ENT Inspection, Normocephalic , Normal Voice, NESSA, Pharynx Normal, Tm's normal Respiratory: Yes: Chest Non-Tender, Lungs Clear, Normal Breath Sounds, No Respiratory Distress, No Accessory Muscle Use Neck: Yes: Within Normal Limits Breast: Yes: Breast Exam Deferred Cardiology: Yes: Regular Rhythm, Regular Rate Abdominal: Yes: Normal Bowel Sounds, Non Tender, Flat, Soft Genitourinary: Yes: Within Normal Limits Back: Yes: Normal Inspection Musculoskeletal: Yes: Within Normal Limits Extremities: Yes: Normal Capillary Refill, Normal Inspection, Normal Range of Motion 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, Fully Oriented, Alert, Motor Strength 5/5 Integumentary: Yes: Normal Color, Warm, Diaphoresis Lymphatic: Yes: Within Normal Limits - Diagnostic (1) Alcohol dependence with uncomplicated withdrawal Current Visit: Yes Status: Acute (2) Anxiety Current Visit: Yes Status: Acute (3) Nicotine dependence Current Visit: Yes Status: Acute Qualifiers: Nicotine product type: cigarettes Substance use status: in withdrawal Qualified Code(s): F17.213 - Nicotine dependence, cigarettes, with withdrawal (4) Positive PPD Current Visit: No Status: Acute (5) Weight loss Current Visit: Yes Status: Acute (6) Essential hypertension Current Visit: Yes Status: Chronic Cleared for Admission S - Detox or Rehab [facility] Level of Care: Medically Managed Detox Regimen/Protocol: Librium Breathalyzer - Breathalyzer Breathalyzer: 0.022 POC Urine test - Test device test lot number: [id number] Expiration date: 06/28/20 - Control test control: Yes - Result Urine Test Results: Negative - NO line present Urine Drug Screen - Test Device Lot number: [id number] Expiration date: 09/27/20 - Control Is test valid?: Yes - Results Drug screen NEGATIVE: Yes Inpatient Rehab Admission - Rehab Decision to Admit Inpatient rehab admission?: No
[2019-02-11] MEDS ORDERED: NICOTINE POLACRILEX 2 MG GUM BUC PRN (18:16)
[2019-02-11] MEDS ORDERED: IBUPROFEN 400 MG TABLET (FP) PO PRN (18:16)
[2019-02-11] MEDS ORDERED: hydrOXYzine PAMOATE 25 MG CAPSULE (FP) PO PRN (18:16)
[2019-02-11] MEDS ORDERED: BISMUTH SUBSALICYLATE 524 MG/30 ML UD PO PRN (18:16)
[2019-02-11] MEDS ORDERED: MAG HYDROX/AL HYDROX/SIMETH 30 ML UNIT-DOSE CUP PO PRN (18:16)
[2019-02-11] MEDS ORDERED: MAGNESIUM HYDROX 2400MG/30ML ORAL SUSPENSION 30 ML CUP PO PRN (18:16)
[2019-02-11] MEDS ORDERED: MAGNESIUM CITRATE 300 ML BOTTLE PO PRN (18:16)
[2019-02-11] MEDS ORDERED: MENTHOL/PHENOL 1 EACH UD MM PRN (18:16)
[2019-02-11] MEDS ORDERED: chlordiazePOXIDE HCL 10 MG CAPSULE PO PRN (18:16)
[2019-02-11] MEDS ORDERED: METHOCARBAMOL 500 MG TABLET PO PRN (18:16)
[2019-02-11] MEDS ORDERED: ACETAMINOPHEN 325 MG TABLET (FP) PO PRN ×2 (18:16)
[2019-02-11] MEDS: THIAMINE HCL 100 MG TABLET (FP) PO SCH (22:11)
[2019-02-11] MEDS: chlordiazePOXIDE HCL 25 MG CAPSULE PO SCH (22:11)
[2019-02-11] MEDS: MELATONIN 5 MG TABLETS PO PRN (22:11)
[2019-02-12] MEDS: chlordiazePOXIDE HCL 25 MG CAPSULE PO SCH ×2 (06:42→14:17)
[2019-02-12 08:34] LABS: URINE APPEARANCE CLEAR; URINE BILIRUBIN NEGATIVE (NEGATIVE); URINE COLOR YELLOW; URINE GLUCOSE (UA) NEGATIVE (NEGATIVE); URINE KETONE NEGATIVE (NEGATIVE); URINE LEUK ESTERASE NEGATIVE (NEGATIVE); URINE NITRITE NEGATIVE (NEGATIVE); URINE PROTEIN NEGATIVE (NEGATIVE); URINE UROBILINOGEN 0.2 mg/dL (0.2-1.0)
[2019-02-12] MEDS: PRENATAL VITAMINS W/ FOLIC ACID TABLET (FP) PO SCH (10:08)
[2019-02-12] MEDS: NICOTINE 14 MG/24 HOURS TOPICAL PATCH TD SCH (10:08)
[2019-02-12 12:59] LABS: ALBUMIN 3.3 g/dl (3.4-5.0); ALK PHOS 63 U/L (45-117); ANION GAP 5 MMOL/L (8-16); BILIRUBIN,TOTAL 0.4 mg/dL (0.2-1); BLOOD UREA NITROGEN 10 mg/dL (7-18); CALCIUM 8.7 mg/dL (8.5-10.1); CHLORIDE 106 mmol/L (98-107); CO2 27 mmol/L (21-32); CREATININE 0.7 mg/dL (0.55-1.3); GLUCOSE,RANDOM 89 mg/dL (74-106); POTASSIUM 4.2 mmol/L (3.5-5.1); SGOT/AST 28 U/L (15-37); SGPT/ALT 34 U/L (13-61); SODIUM 138 mmol/L (136-145); TOT PROT 6.6 g/dl (6.4-8.2)
--- NOTE | 2019-02-12 13:04 | PN ---
[facility] CIWA - CIWA Score Nausea/Vomitin-Mild Nausea/No Vomiting Muscle Tremors: 3 Anxiety: 1-Mildly Anxious Agitation: 2 Paroxysmal Sweats: 1-Minimal Palms Moist Orientation: 2-Disoriented Date<2 days Tacttile Disturbances: 0-None Auditory Disturbances: 0-None Visual Disturbances: 0-None Headache: 1-Very Mild CIWA-Ar Total Score: 11 S Progress Note (SOAP) Subjective: long history of hypertension none compliane with antihypertensant report bp down when not drinking alcohol Objective: 02/12/19 13:08 Vital Signs Temperature 97.9 F 02/12/19 09:40 Pulse Rate 77 02/12/19 09:40 Respiratory Rate 20 02/12/19 09:40 Blood Pressure 142/97 02/12/19 09:40 O2 Sat by Pulse Oximetry (%) Laboratory Last Values Sodium 138 mmol/L (136-145) 02/12/19 07:00 Potassium 4.2 mmol/L (3.5-5.1) 02/12/19 07:00 Chloride 106 mmol/L (98-107) 02/12/19 07:00 Carbon Dioxide 27 mmol/L (21-32) 02/12/19 07:00 Anion Gap 5 MMOL/L (8-16) L 02/12/19 07:00 BUN 10 mg/dL (7-18) 02/12/19 07:00 Creatinine 0.7 mg/dL (0.55-1.3) 02/12/19 07:00 Creat Clearance w eGFR 117.97 (>60) 02/12/19 07:00 Random Glucose 89 mg/dL (74-106) 02/12/19 07:00 Calcium 8.7 mg/dL (8.5-10.1) 02/12/19 07:00 Total Bilirubin 0.4 mg/dL (0.2-1) 02/12/19 07:00 AST 28 U/L (15-37) 02/12/19 07:00 ALT 34 U/L (13-61) 02/12/19 07:00 Alkaline Phosphatase 63 U/L (45-117) 02/12/19 07:00 Total Protein 6.6 g/dl (6.4-8.2) 02/12/19 07:00 Albumin 3.3 g/dl (3.4-5.0) L 02/12/19 07:00 Urine Color Yellow 02/12/19 00:00 Urine Appearance Clear 02/12/19 00:00 Urine pH 7.0 (5.0-8.0) D 02/12/19 00:00 Ur Specific [place] 1.008 (1.010-1.035) L 02/12/19 00:00 Urine Protein Negative (NEGATIVE) 02/12/19 00:00 Urine Glucose (UA) Negative (NEGATIVE) 02/12/19 00:00 Urine Ketones Negative (NEGATIVE) 02/12/19 00:00 Urine Blood Negative (NEGATIVE) 02/12/19 00:00 Urine Nitrite Negative (NEGATIVE) 02/12/19 00:00 Urine Bilirubin Negative (NEGATIVE) 02/12/19 00:00 Urine Urobilinogen 0.2 mg/dL (0.2-1.0) 02/12/19 00:00 Ur Leukocyte Esterase Negative (NEGATIVE) 02/12/19 00:00 lab noted Assessment: 02/12/19 13:09 salena alvarado Plan: continue detox
[2019-02-12 13:37] LABS: HEMOGLOBIN 12.1 GM/dL (11.7-16.9); MCH 29.8 pg (25.7-33.7); MCHC 34.6 g/dl (32.0-35.9); MEAN CELL VOLUME 86.2 fl (80-96); MEAN PLT VOLUME 8.3 fl (7.5-11.1); PLATELET COUNT 247 K/MM3 (134-434); RBC 4.06 M/mm3 (4.00-5.60); RDW 13.5 % (11.9-15.9); WHITE BLOOD COUNT 5.4 K/mm3 (4.0-10.0)
[2019-02-12] MEDS: LISINOPRIL 5 MG TABLET (FP) PO SCH ×2 (14:17→22:14)
[2019-02-12] MEDS: chlordiazePOXIDE 5 MG CAPSULE PO SCH (22:13)
[2019-02-12] MEDS: THIAMINE HCL 100 MG TABLET (FP) PO SCH (22:13)
[2019-02-12] MEDS: MELATONIN 5 MG TABLETS PO PRN (22:15)
[2019-02-13] MEDS: chlordiazePOXIDE 5 MG CAPSULE PO SCH ×2 (05:00→14:00)
--- NOTE | 2019-02-13 10:08 | PN ---
S CIWA - CIWA Score Nausea/Vomitin-No Nausea/No Vomiting Muscle Tremors: 2 Anxiety: 1-Mildly Anxious Agitation: 1-Slight > Activity Paroxysmal Sweats: 1-Minimal Palms Moist Orientation: 1-Uncertain about Date Tacttile Disturbances: 0-None Auditory Disturbances: 0-None Visual Disturbances: 0-None Headache: 1-Very Mild CIWA-Ar Total Score: 7 S Progress Note (SOAP) Subjective: feeling better patient agrees to follow up with primary care provider for bp monitoring Objective: 02/13/19 10:07 Vital Signs Temperature 97.3 F L 02/13/19 09:29 Pulse Rate 74 02/13/19 09:29 Respiratory Rate 18 02/13/19 09:29 Blood Pressure 142/93 02/13/19 09:29 O2 Sat by Pulse Oximetry (%) Laboratory Last Values WBC 5.4 K/mm3 (4.0-10.0) 02/12/19 07:00 RBC 4.06 M/mm3 (4.00-5.60) 02/12/19 07:00 Hgb 12.1 GM/dL (11.7-16.9) 02/12/19 07:00 Hct 35.0 % (35.4-49) L 02/12/19 07:00 MCV 86.2 fl (80-96) 02/12/19 07:00 MCH 29.8 pg (25.7-33.7) 02/12/19 07:00 MCHC 34.6 g/dl (32.0-35.9) 02/12/19 07:00 RDW 13.5 % (11.9-15.9) 02/12/19 07:00 Plt Count 247 K/MM3 (134-434) 02/12/19 07:00 MPV 8.3 fl (7.5-11.1) 02/12/19 07:00 Sodium 138 mmol/L (136-145) 02/12/19 07:00 Potassium 4.2 mmol/L (3.5-5.1) 02/12/19 07:00 Chloride 106 mmol/L (98-107) 02/12/19 07:00 Carbon Dioxide 27 mmol/L (21-32) 02/12/19 07:00 Anion Gap 5 MMOL/L (8-16) L 02/12/19 07:00 BUN 10 mg/dL (7-18) 02/12/19 07:00 Creatinine 0.7 mg/dL (0.55-1.3) 02/12/19 07:00 Creat Clearance w eGFR 117.97 (>60) 02/12/19 07:00 Random Glucose 89 mg/dL (74-106) 02/12/19 07:00 Calcium 8.7 mg/dL (8.5-10.1) 02/12/19 07:00 Total Bilirubin 0.4 mg/dL (0.2-1) 02/12/19 07:00 AST 28 U/L (15-37) 02/12/19 07:00 ALT 34 U/L (13-61) 02/12/19 07:00 Alkaline Phosphatase 63 U/L (45-117) 02/12/19 07:00 Total Protein 6.6 g/dl (6.4-8.2) 02/12/19 07:00 Albumin 3.3 g/dl (3.4-5.0) L 02/12/19 07:00 Urine Color Yellow 02/12/19 00:00 Urine Appearance Clear 02/12/19 00:00 Urine pH 7.0 (5.0-8.0) D 02/12/19 00:00 Ur Specific [place] 1.008 (1.010-1.035) L 02/12/19 00:00 Urine Protein Negative (NEGATIVE) 02/12/19 00:00 Urine Glucose (UA) Negative (NEGATIVE) 02/12/19 00:00 Urine Ketones Negative (NEGATIVE) 02/12/19 00:00 Urine Blood Negative (NEGATIVE) 02/12/19 00:00 Urine Nitrite Negative (NEGATIVE) 02/12/19 00:00 Urine Bilirubin Negative (NEGATIVE) 02/12/19 00:00 Urine Urobilinogen 0.2 mg/dL (0.2-1.0) 02/12/19 00:00 Ur Leukocyte Esterase Negative (NEGATIVE) 02/12/19 00:00 RPR Titer Nonreactive (NONREACTIVE) 02/12/19 07:00 lab noted Assessment: 02/13/19 10:07 mild withdrawal sx 02/13/19 10:08 Plan: continue detox
[2019-02-13] MEDS: NICOTINE 14 MG/24 HOURS TOPICAL PATCH TD SCH (10:47)
[2019-02-13] MEDS: PRENATAL VITAMINS W/ FOLIC ACID TABLET (FP) PO SCH (10:47)
[2019-02-13] MEDS: LISINOPRIL 5 MG TABLET (FP) PO SCH ×2 (10:47→22:09)
[2019-02-13] MEDS ORDERED: cloNIDine HCL 0.1 MG TABLET PO PRN (14:34)
[2019-02-13] MEDS ORDERED: chlordiazePOXIDE HCL 10 MG CAPSULE PO PRN (21:00)
[2019-02-13] MEDS: chlordiazePOXIDE HCL 10 MG CAPSULE PO SCH (22:00)
[2019-02-13] MEDS: THIAMINE HCL 100 MG TABLET (FP) PO SCH (22:08)
[2019-02-13] MEDS: MELATONIN 5 MG TABLETS PO PRN (22:09)
[2019-02-14] MEDS: chlordiazePOXIDE HCL 10 MG CAPSULE PO SCH (06:18)
[2019-02-14] MEDS: PRENATAL VITAMINS W/ FOLIC ACID TABLET (FP) PO SCH (10:37)
[2019-02-14] MEDS: NICOTINE 14 MG/24 HOURS TOPICAL PATCH TD SCH (10:37)
[2019-02-14] MEDS: LISINOPRIL 5 MG TABLET (FP) PO SCH (10:37)
[2019-02-14 13:21] VITALS: BP 143/102; PULSE 76; TEMP 98.9
--- NOTE | 2019-02-14 17:10 | DS ---
[facility] Detox Discharge Summary Admission Date: 02/11/19 Discharge Date: 02/14/19 - History Present History: Alcohol Dependence Additional Comments: PATIENT GOING TO [facility] ([place], [place]) FOR AFTERCARE. PATIENT WAS DISCHARGED FROM DETOX UNIT IN STABLE MEDICAL CONDITION. Pertinent Past History: HTN, Depression, Anxiety, History Of Positive PPD, Nicotine Dependence, Weight Loss. - Physical Exam Results Vital Signs: Vital Signs Temperature 98.9 F 02/14/19 13:20 Pulse Rate 76 02/14/19 13:20 Respiratory Rate 18 02/14/19 13:20 Blood Pressure 143/102 H 02/14/19 13:20 O2 Sat by Pulse Oximetry (%) Pertinent Admission Physical Exam Findings: WITHDRAWAL SYMPTOMS. Laboratory Tests 02/12/19 02/12/19 02/12/19 00:00 07:00 07:00 WBC 5.4 RBC 4.06 Hgb 12.1 Hct 35.0 L MCV 86.2 MCH 29.8 MCHC 34.6 RDW 13.5 Plt Count 247 MPV 8.3 Sodium 138 Potassium 4.2 Chloride 106 Carbon Dioxide 27 Anion Gap 5 L BUN 10 Creatinine 0.7 Creat Clearance w eGFR 117.97 Random Glucose 89 Calcium 8.7 Total Bilirubin 0.4 AST 28 ALT 34 Alkaline Phosphatase 63 Total Protein 6.6 Albumin 3.3 L Urine Color Yellow Urine Appearance Clear Urine pH 7.0 D Ur Specific [place] 1.008 L Urine Protein Negative Urine Glucose (UA) Negative Urine Ketones Negative Urine Blood Negative Urine Nitrite Negative Urine Bilirubin Negative Urine Urobilinogen 0.2 Ur Leukocyte Esterase Negative RPR Titer 02/12/19 07:00 WBC RBC Hgb Hct MCV MCH MCHC RDW Plt Count MPV Sodium Potassium Chloride Carbon Dioxide Anion Gap BUN Creatinine Creat Clearance w eGFR Random Glucose Calcium Total Bilirubin AST ALT Alkaline Phosphatase Total Protein Albumin Urine Color Urine Appearance Urine pH Ur Specific [place] Urine Protein Urine Glucose (UA) Urine Ketones Urine Blood Urine Nitrite Urine Bilirubin Urine Urobilinogen Ur Leukocyte Esterase RPR Titer Nonreactive LABS NOTED. - Treatment Hospital Course: Detox Protocol Followed, Detoxed Safely, Responded well, Discharged Condition Good, Rehab Referral Accepted Patient has Accepted a Rehab Referral to: [facility] ([place], [place]). - Medication Discharge Medications: Ambulatory Orders Lisinopril [Prinivil] 5 mg PO BID 02/12/19 Lisinopril [Prinivil] 5 mg PO BID #60 tablet 02/13/19 - Diagnosis (1) Alcohol dependence with uncomplicated withdrawal Status: Acute (2) Anxiety Status: Acute (3) Nicotine dependence Status: Acute Qualifiers: Nicotine product type: cigarettes Substance use status: in withdrawal Qualified Code(s): F17.213 - Nicotine dependence, cigarettes, with withdrawal (4) Positive PPD Status: Acute (5) Weight loss Status: Acute (6) Essential hypertension Status: Chronic - AMA Did Patient Leave Against Medical Advice: No
== END 2019-02-14 02:06 | disposition home or self-care (01) | DRG 775 ==
LOC: YASAS 13:59 → Y3N 18:39
PROVIDERS: ADMIT Surgery; ATTEND Surgery
PROC: HZ2ZZZZ Detoxification Services for Substance Abuse Treatment (ICD-10-PCS; principal; 2019-02-11)
DX: F10.230 Alcohol dependence with withdrawal, uncomplicated (principal); F17.213 Nicotine dependence, cigarettes, with withdrawal; F41.9 Anxiety disorder, unspecified; I10 Essential (primary) hypertension; R63.4 Abnormal weight loss; R76.11 Nonspecific reaction to tuberculin skin test without active tuberculosis; Z91.14 Patient's other noncompliance with medication regimen
CPT/HCPCS: 36415; 80053; 81003; 85027; 86593

== ENCOUNTER 2019-08-16 14:05 | Inpatient (IN) | payer OTHER ==
[2019-08-16 15:42] VITALS: BMI 25.7
--- NOTE | 2019-08-16 18:51 | HP ---
CIWA Score Nausea/Vomitin Muscle Tremors: 2 Anxiety: 1-Mildly Anxious Agitation: 1-Slight > Activity Paroxysmal Sweats: 2 Orientation: 0-Oriented Tacttile Disturbances: 2-Mild Itch/Numbness/Burn Auditory Disturbances: 1-Very Mild Visual Disturbances: 1-Very Mild Sensitivity Headache: 3-Moderate CIWA-Ar Total Score: 15 - Admission Criteria OASAS Guidelines: Admission for Medically Managed Detox: Requires at least one of the followin. CIWA greater than 12 2. Seizures within the past 24 hours 3. Delirium tremens within the past 24 hours 4. Hallucinations within the past 24 hours 5. Acute intervention needed for co occurring medical disorder 6. Acute intervention needed for co occurring psychiatric disorder 7. Severe withdrawal that cannot be handled at a lower level of care (continued vomiting, continued diarrhea, abnormal vital signs) requiring intravenous medication and/or fluids 8. Patient presents the following: CIWA greater than 12 Admission Criteria Met: Admission criteria met Admitting History and Physical - Admission History Source: Patient Limitations to Obtaining History: No Limitations - Smoking History Smoking history: Current every day smoker Have you smoked in the past 12 months: Yes Aproximately how many cigarettes per day: 10 - Alcohol/Substance Use Hx Alcohol Use: Yes Admission ROS S - [facility] Chief Complaint: I need detox, too much drinking Allergies/Adverse Reactions: Allergies Allergy/AdvReac Type Severity Reaction Status Date / [facility] Verified 08/16/19 15:37 Penicillins Allergy Verified 08/16/19 15:37 History of Present Illness: Patient is a 53 year old male with alcohol and nicotine dependence who presents for detox. His last detox at [facility] was 02/11-02/14/19. He reports his longest period of sobriety was 10 years ago. Exam Limitations: No Limitations - Ebola screening Have you traveled outside of the country in the last 21 days: No Have you had contact with anyone from an Ebola affected area: No Have you been sick,other than usual withdrawal symptoms: No Do you have a fever: No - Review of Systems Constitutional: Chills, Diaphoresis, Changes in sleep EENT: reports: No Symptoms Reported Respiratory: reports: No Symptoms reported, Cough (due to smoking) Cardiac: reports: Lightheadedness GI: reports: Nausea, Poor Appetite, Abdominal cramping : reports: No Symptoms Reported Musculoskeletal: reports: Back Pain, Joint Pain, Muscle Pain, Muscle Weakness Integumentary: reports: Sweating Neuro: reports: Numbness, Tremors Endocrine: reports: No Symptoms Reported Hematology: reports: No Symptoms Reported Psychiatric: reports: Anxious, Depressed Other Systems: Reviewed and Negative Patient History - Patient Medical History Hx Anemia: No Hx Asthma: No Hx Chronic Obstructive Pulmonary Disease (COPD): No Hx Cancer: No Hx Cardiac Disorders: No Hx Congestive Heart Failure: No Hx Hypertension: Yes Hx Hypercholesterolemia: No Hx Pacemaker: No HX Cerebrovascular Accident: No Hx Seizures: No Hx Dementia: No Hx Diabetes: No Hx Gastrointestinal Disorders: No Hx Liver Disease: No Hx Genitourinary Disorders: No Hx Sexually Transmitted Disorders: No Hx Renal Disease (ESRD): No Hx Thyroid Disease: No Hx Human Immunodeficiency Virus (HIV): No Hx Hepatitis C: No Hx Depression: Yes (with anxiety) Hx Suicide Attempt: No Hx Bipolar Disorder: No Hx Schizophrenia: No - Patient Surgical History Past Surgical History: Yes Hx Neurologic Surgery: No Hx Cataract Extraction: No Hx Cardiac Surgery: No Hx Lung Surgery: No Hx Breast Surgery: No Hx Breast Biopsy: No Hx Abdominal Surgery: No Hx Appendectomy: No Hx Cholecystectomy: No Hx Genitourinary Surgery: No Hx Section: No Hx Orthopedic Surgery: No Other Surgical History: neck surgery 2 months ago Anesthesia Reaction: No - PPD History Previous Implant?: No Implanted On Prior [facility] Admission?: No Date: 08/12/18 Results: neg chest x-ray PPD to be Administered?: No - Smoking Cessation Smoking history: Current every day smoker Have you smoked in the past 12 months: Yes Aproximately how many cigarettes per day: 10 Hx Chewing Tobacco Use: No Initiated information on smoking cessation: Yes 'Breaking Loose' booklet given: 08/16/19 - Substances abused Alcohol Substance route: Oral Frequency: Daily Amount used: 2 1/2-3 pints Age of first use: 30 Date of last use: 08/15/19 Admission Physical Exam BHS - Vital Signs Vital Signs: Vital Signs - 24 hr 08/16/19 15:36 Temperature 97.1 F L Pulse Rate 89 Respiratory 20 Rate Blood Pressure 152/91 - Physical General Appearance: Yes: No Apparent Distress HEENTM: Yes: Hearing grossly Normal, Normocephalic, Normal Voice, NESSA Respiratory: Yes: Chest Non-Tender, Lungs Clear, No Respiratory Distress, No Accessory Muscle Use Neck: Yes: No masses,lesions,Nodules, Supple Breast: Yes: Breast Exam Deferred Cardiology: Yes: Regular Rhythm, Regular Rate, S1, S2 Abdominal: Yes: Normal Bowel Sounds, Non Tender Genitourinary: Yes: Within Normal Limits Back: Yes: Normal Inspection Musculoskeletal: Yes: full range of Motion, Gait Steady, Back pain, Muscle Pain , Muscle weakness Extremities: Yes: Tremors Neurological: 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: 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 intact, Fully Oriented, Normal Mood/Affect, Normal Response Integumentary: Yes: Clammy - Diagnostic (1) Alcohol dependence with uncomplicated withdrawal Current Visit: Yes Status: Acute (2) Anxiety Current Visit: No Status: Acute (3) Depression Current Visit: No Status: Acute (4) Nicotine dependence Current Visit: No Status: Acute Qualifiers: Nicotine product type: cigarettes Substance use status: uncomplicated Qualified Code(s): F17.210 - Nicotine dependence, cigarettes, uncomplicated (5) Positive PPD Current Visit: No Status: Acute (6) Essential hypertension Current Visit: No Status: Chronic Cleared for Admission [facility] - Detox or Rehab [facility] Level of Care: Medically Managed Detox Regimen/Protocol: Librium Claeared for Rehab Admission: No Breathalyzer - Breathalyzer Breathalyzer: 0 POC Urine test - Test device test lot number: [id number] Expiration date: 06/28/20 - Control test control: Yes Urine Drug Screen - Test Device Lot number: [id number] Expiration date: 03/28/21 - Control Is test valid?: Yes - Results Drug screen NEGATIVE: No Urine drug screen results: THC-Marijuana Inpatient Rehab Admission - Rehab Decision to Admit Inpatient rehab admission?: No
[2019-08-16] MEDS ORDERED: ONDANSETRON *ODT* 4 MG TABLET SL PRN (18:55)
[2019-08-16] MEDS ORDERED: hydrOXYzine PAMOATE 25 MG CAPSULE (FP) PO PRN (18:55)
[2019-08-16] MEDS ORDERED: MAG HYDROX/AL HYDROX/SIMETH 30 ML UNIT-DOSE CUP PO PRN (18:55)
[2019-08-16] MEDS ORDERED: BISMUTH SUBSALICYLATE 524 MG/30 ML UD PO PRN (18:55)
[2019-08-16] MEDS ORDERED: ACETAMINOPHEN 325 MG TABLET (FP) PO PRN ×2 (18:55)
[2019-08-16] MEDS ORDERED: METHOCARBAMOL 500 MG TABLET PO PRN (18:55)
[2019-08-16] MEDS ORDERED: MAGNESIUM CITRATE 300 ML BOTTLE PO PRN (18:55)
[2019-08-16] MEDS ORDERED: chlordiazePOXIDE HCL 10 MG CAPSULE PO PRN (18:55)
[2019-08-16] MEDS ORDERED: MAGNESIUM HYDROX 2400MG/30ML ORAL SUSPENSION 30 ML CUP PO PRN (18:55)
[2019-08-16] MEDS ORDERED: MENTHOL/PHENOL 1 EACH UD MM PRN (18:55)
[2019-08-16] MEDS: chlordiazePOXIDE HCL 25 MG CAPSULE PO SCH (21:36)
[2019-08-16] MEDS: IBUPROFEN 400 MG TABLET (FP) PO PRN (21:37)
[2019-08-16] MEDS: MELATONIN 5 MG TABLETS PO PRN (21:37)
[2019-08-16] MEDS: LISINOPRIL 5 MG TABLET (FP) PO SCH (21:37)
[2019-08-16] MEDS: THIAMINE HCL 100 MG TABLET (FP) PO SCH (21:37)
[2019-08-16] MEDS: NICOTINE 14 MG/24 HOURS TOPICAL PATCH TD SCH (21:39)
[2019-08-17] MEDS: chlordiazePOXIDE HCL 25 MG CAPSULE PO SCH ×3 (06:28→22:12)
[2019-08-17] MEDS: NICOTINE POLACRILEX 2 MG GUM BUC PRN (10:24)
[2019-08-17] MEDS: NICOTINE 14 MG/24 HOURS TOPICAL PATCH TD SCH (10:24)
[2019-08-17] MEDS: PRENATAL VITAMINS W/ FOLIC ACID TABLET (FP) PO SCH (10:24)
[2019-08-17] MEDS: LISINOPRIL 5 MG TABLET (FP) PO SCH ×2 (10:24→22:12)
[2019-08-17 11:00] LABS: HEMATOCRIT 32.3 % (35.4-49); HEMOGLOBIN 11.4 GM/dL (11.7-16.9); MCH 30.7 pg (25.7-33.7); MCHC 35.3 g/dl (32.0-35.9); MEAN PLT VOLUME 7.8 fl (7.5-11.1); PLATELET COUNT 315 K/MM3 (134-434); RBC 3.71 M/mm3 (4.00-5.60); RDW 14.2 % (11.9-15.9); WHITE BLOOD COUNT 5.9 K/mm3 (4.0-10.0)
[2019-08-17 11:17] LABS: ALBUMIN 3.2 g/dl (3.4-5.0); BILIRUBIN,TOTAL 0.4 mg/dL (0.2-1); BLOOD UREA NITROGEN 14.8 mg/dL (7-18); CALCIUM 8.3 mg/dL (8.5-10.1); CREATININE 0.8 mg/dL (0.55-1.3); POTASSIUM 3.9 mmol/L (3.5-5.1); TOT PROT 6.6 g/dl (6.4-8.2)
[2019-08-17] MEDS: IBUPROFEN 400 MG TABLET (FP) PO PRN (13:49)
--- NOTE | 2019-08-17 14:42 | PN ---
[facility] CIWA - CIWA Score Nausea/Vomitin-Mild Nausea/No Vomiting Muscle Tremors: 3 Anxiety: 3 Agitation: 1-Slight > Activity Paroxysmal Sweats: 2 Orientation: 0-Oriented Tacttile Disturbances: 1-Very Mild Itch/Numbness Auditory Disturbances: 0-None Visual Disturbances: 0-None Headache: 0-None Present CIWA-Ar Total Score: 11 S Progress Note (SOAP) Subjective: doing well with librium detox regimen ate breakfast shaved shower later less tremor sweating Objective: 08/17/19 14:41 Vital Signs Temperature 98.5 F 08/17/19 13:09 Pulse Rate 72 08/17/19 13:09 Respiratory Rate 18 08/17/19 13:09 Blood Pressure 154/98 08/17/19 13:09 O2 Sat by Pulse Oximetry (%) Laboratory Last Values WBC 5.9 K/mm3 (4.0-10.0) 08/17/19 08:00 RBC 3.71 M/mm3 (4.00-5.60) L 08/17/19 08:00 Hgb 11.4 GM/dL (11.7-16.9) L 08/17/19 08:00 Hct 32.3 % (35.4-49) L 08/17/19 08:00 MCV 87.0 fl (80-96) 08/17/19 08:00 MCH 30.7 pg (25.7-33.7) 08/17/19 08:00 MCHC 35.3 g/dl (32.0-35.9) 08/17/19 08:00 RDW 14.2 % (11.9-15.9) 08/17/19 08:00 Plt Count 315 K/MM3 (134-434) D 08/17/19 08:00 MPV 7.8 fl (7.5-11.1) 08/17/19 08:00 Sodium 140 mmol/L (136-145) 08/17/19 08:00 Potassium 3.9 mmol/L (3.5-5.1) 08/17/19 08:00 Chloride 104 mmol/L (98-107) 08/17/19 08:00 Carbon Dioxide 28 mmol/L (21-32) 08/17/19 08:00 Anion Gap 8 MMOL/L (8-16) 08/17/19 08:00 BUN 14.8 mg/dL (7-18) 08/17/19 08:00 Creatinine 0.8 mg/dL (0.55-1.3) 08/17/19 08:00 Est GFR (CKD-EPI)AfAm 118.20 08/17/19 08:00 Est GFR (CKD-EPI)NonAf 101.99 08/17/19 08:00 Random Glucose 93 mg/dL (74-106) 08/17/19 08:00 Calcium 8.3 mg/dL (8.5-10.1) L 08/17/19 08:00 Total Bilirubin 0.4 mg/dL (0.2-1) 08/17/19 08:00 AST 16 U/L (15-37) 08/17/19 08:00 ALT 25 U/L (13-61) 08/17/19 08:00 Alkaline Phosphatase 77 U/L (45-117) 08/17/19 08:00 Total Protein 6.6 g/dl (6.4-8.2) 08/17/19 08:00 Albumin 3.2 g/dl (3.4-5.0) L 08/17/19 08:00 lab noted Assessment: 08/17/19 14:42 alcohol withdrawal sx Plan: continue librium detox regimen
[2019-08-17] MEDS: MELATONIN 5 MG TABLETS PO PRN (22:12)
[2019-08-17] MEDS: THIAMINE HCL 100 MG TABLET (FP) PO SCH (22:12)
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
[2019-08-18] MEDS: chlordiazePOXIDE 5 MG CAPSULE PO SCH ×3 (07:37→22:00)
[2019-08-18] MEDS: NICOTINE 14 MG/24 HOURS TOPICAL PATCH TD SCH (10:01)
[2019-08-18] MEDS: PRENATAL VITAMINS W/ FOLIC ACID TABLET (FP) PO SCH (10:02)
[2019-08-18] MEDS: LISINOPRIL 5 MG TABLET (FP) PO SCH ×2 (10:02→22:00)
[2019-08-18] MEDS: NICOTINE POLACRILEX 2 MG GUM BUC PRN ×2 (10:03→14:02)
[2019-08-18] MEDS: IBUPROFEN 400 MG TABLET (FP) PO PRN ×2 (10:37→19:12)
--- NOTE | 2019-08-18 15:52 | PN ---
[facility] CIWA - CIWA Score Nausea/Vomitin-Mild Nausea/No Vomiting Muscle Tremors: 2 Anxiety: 2 Agitation: 2 Paroxysmal Sweats: 1-Minimal Palms Moist Orientation: 0-Oriented Tacttile Disturbances: 0-None Auditory Disturbances: 0-None Visual Disturbances: 0-None Headache: 0-None Present CIWA-Ar Total Score: 8 S Progress Note (SOAP) Subjective: doing well with librium detox regimen nose no swell no trouble breathing denies pain less tremor mild anxiety Objective: 08/18/19 15:52 Vital Signs Temperature 98.5 F 08/18/19 13:14 Pulse Rate 74 08/18/19 13:14 Respiratory Rate 18 08/18/19 13:14 Blood Pressure 139/95 08/18/19 13:14 O2 Sat by Pulse Oximetry (%) Laboratory Last Values WBC 5.9 K/mm3 (4.0-10.0) 08/17/19 08:00 RBC 3.71 M/mm3 (4.00-5.60) L 08/17/19 08:00 Hgb 11.4 GM/dL (11.7-16.9) L 08/17/19 08:00 Hct 32.3 % (35.4-49) L 08/17/19 08:00 MCV 87.0 fl (80-96) 08/17/19 08:00 MCH 30.7 pg (25.7-33.7) 08/17/19 08:00 MCHC 35.3 g/dl (32.0-35.9) 08/17/19 08:00 RDW 14.2 % (11.9-15.9) 08/17/19 08:00 Plt Count 315 K/MM3 (134-434) D 08/17/19 08:00 MPV 7.8 fl (7.5-11.1) 08/17/19 08:00 Sodium 140 mmol/L (136-145) 08/17/19 08:00 Potassium 3.9 mmol/L (3.5-5.1) 08/17/19 08:00 Chloride 104 mmol/L (98-107) 08/17/19 08:00 Carbon Dioxide 28 mmol/L (21-32) 08/17/19 08:00 Anion Gap 8 MMOL/L (8-16) 08/17/19 08:00 BUN 14.8 mg/dL (7-18) 08/17/19 08:00 Creatinine 0.8 mg/dL (0.55-1.3) 08/17/19 08:00 Est GFR (CKD-EPI)AfAm 118.20 08/17/19 08:00 Est GFR (CKD-EPI)NonAf 101.99 08/17/19 08:00 Random Glucose 93 mg/dL (74-106) 08/17/19 08:00 Calcium 8.3 mg/dL (8.5-10.1) L 08/17/19 08:00 Total Bilirubin 0.4 mg/dL (0.2-1) 08/17/19 08:00 AST 16 U/L (15-37) 08/17/19 08:00 ALT 25 U/L (13-61) 08/17/19 08:00 Alkaline Phosphatase 77 U/L (45-117) 08/17/19 08:00 Total Protein 6.6 g/dl (6.4-8.2) 08/17/19 08:00 Albumin 3.2 g/dl (3.4-5.0) L 08/17/19 08:00 RPR Titer Nonreactive (NONREACTIVE) 08/17/19 08:00 lab noted Assessment: 08/18/19 15:52 alcohol withdrawal sx Plan: continue librium detox regimen
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
[2019-08-18] MEDS: THIAMINE HCL 100 MG TABLET (FP) PO SCH (22:00)
[2019-08-18] MEDS: MELATONIN 5 MG TABLETS PO PRN (22:01)
[2019-08-19] MEDS ORDERED: chlordiazePOXIDE HCL 10 MG CAPSULE PO PRN
[2019-08-19] MEDS: chlordiazePOXIDE HCL 10 MG CAPSULE PO SCH ×2 (06:50→13:38)
[2019-08-19 09:06] VITALS: PULSE 78
[2019-08-19] MEDS: NICOTINE 14 MG/24 HOURS TOPICAL PATCH TD SCH (10:04)
[2019-08-19] MEDS: LISINOPRIL 5 MG TABLET (FP) PO SCH (10:04)
[2019-08-19] MEDS: PRENATAL VITAMINS W/ FOLIC ACID TABLET (FP) PO SCH (10:04)
[2019-08-19] MEDS: IBUPROFEN 400 MG TABLET (FP) PO PRN (10:05)
[2019-08-19] MEDS: NICOTINE POLACRILEX 2 MG GUM BUC PRN (10:08)
[2019-08-19 13:42] VITALS: BP 146/96; TEMP 97
--- NOTE | 2019-08-19 14:25 | DS ---
[facility] Detox Discharge Summary Admission Date: 08/16/19 Discharge Date: 08/19/19 - History Present History: Alcohol Dependence Additional Comments: 53 years old male admitted on 08/16/19 for alcohol withdrawal sx management did well with librium detox regimen no complication through out the detox stay alert oriented x 3 cardiac S1S2 regular rate rhythm respiratory clear lung bilaterally on auscultation extremities full range of motion - Physical Exam Results Vital Signs: Vital Signs Temperature 97 F L 08/19/19 13:19 Pulse Rate 78 08/19/19 13:19 Respiratory Rate 18 08/19/19 13:19 Blood Pressure 146/96 08/19/19 13:19 O2 Sat by Pulse Oximetry (%) Pertinent Admission Physical Exam Findings: alcohol withdrawal sx Laboratory Last Values WBC 5.9 K/mm3 (4.0-10.0) 08/17/19 08:00 RBC 3.71 M/mm3 (4.00-5.60) L 08/17/19 08:00 Hgb 11.4 GM/dL (11.7-16.9) L 08/17/19 08:00 Hct 32.3 % (35.4-49) L 08/17/19 08:00 MCV 87.0 fl (80-96) 08/17/19 08:00 MCH 30.7 pg (25.7-33.7) 08/17/19 08:00 MCHC 35.3 g/dl (32.0-35.9) 08/17/19 08:00 RDW 14.2 % (11.9-15.9) 08/17/19 08:00 Plt Count 315 K/MM3 (134-434) D 08/17/19 08:00 MPV 7.8 fl (7.5-11.1) 08/17/19 08:00 Sodium 140 mmol/L (136-145) 08/17/19 08:00 Potassium 3.9 mmol/L (3.5-5.1) 08/17/19 08:00 Chloride 104 mmol/L (98-107) 08/17/19 08:00 Carbon Dioxide 28 mmol/L (21-32) 08/17/19 08:00 Anion Gap 8 MMOL/L (8-16) 08/17/19 08:00 BUN 14.8 mg/dL (7-18) 08/17/19 08:00 Creatinine 0.8 mg/dL (0.55-1.3) 08/17/19 08:00 Est GFR (CKD-EPI)AfAm 118.20 08/17/19 08:00 Est GFR (CKD-EPI)NonAf 101.99 08/17/19 08:00 Random Glucose 93 mg/dL (74-106) 08/17/19 08:00 Calcium 8.3 mg/dL (8.5-10.1) L 08/17/19 08:00 Total Bilirubin 0.4 mg/dL (0.2-1) 08/17/19 08:00 AST 16 U/L (15-37) 08/17/19 08:00 ALT 25 U/L (13-61) 08/17/19 08:00 Alkaline Phosphatase 77 U/L (45-117) 08/17/19 08:00 Total Protein 6.6 g/dl (6.4-8.2) 08/17/19 08:00 Albumin 3.2 g/dl (3.4-5.0) L 08/17/19 08:00 RPR Titer Nonreactive (NONREACTIVE) 08/17/19 08:00 lab noted - Treatment Hospital Course: Detox Protocol Followed, Detoxed Safely, Responded well, Discharged Condition Good, Rehab Referral Accepted Patient has Accepted [facility] - Medication Discharge Medications: Ambulatory Orders Lisinopril [Prinivil] 5 mg PO BID 02/12/19 - Diagnosis (1) Nicotine dependence Current Visit: Yes Status: Acute Qualifiers: Nicotine product type: cigarettes Substance use status: in withdrawal Qualified Code(s): F17.213 - Nicotine dependence, cigarettes, with withdrawal (2) Positive PPD Current Visit: Yes Status: Resolved (3) Essential hypertension Current Visit: Yes Status: Chronic - AMA Did Patient Leave Against Medical Advice: No CIWA Score - CIWA Score Nausea/Vomitin-Mild Nausea/No Vomiting Muscle Tremors: 1-None Visible, but [place] Anxiety: 1-Mildly Anxious Agitation: 1-Slight > Activity Paroxysmal Sweats: No Perspiration Orientation: 0-Oriented Tacttile Disturbances: 0-None Auditory Disturbances: 0-None Visual Disturbances: 0-None Headache: 0-None Present CIWA-Ar Total Score: 4
[2019-08-20] MEDS ORDERED: chlordiazePOXIDE HCL 10 MG CAPSULE PO ONE (05:00)
== END 2019-08-19 15:34 | disposition other institution (70) | DRG 775 ==
LOC: YASAS 14:05 → Y3N 19:20
PROVIDERS: ADMIT Allergy & Immunology; ATTEND Allergy & Immunology
PROC: HZ2ZZZZ Detoxification Services for Substance Abuse Treatment (ICD-10-PCS; principal; 2019-08-16)
DX: F10.230 Alcohol dependence with withdrawal, uncomplicated (principal); F12.10 Cannabis abuse, uncomplicated; F17.213 Nicotine dependence, cigarettes, with withdrawal; F41.9 Anxiety disorder, unspecified; F32.9 Major depressive disorder, single episode, unspecified; I10 Essential (primary) hypertension; R76.11 Nonspecific reaction to tuberculin skin test without active tuberculosis; Z88.0 Allergy status to penicillin; Z91.018 Allergy to other foods
CPT/HCPCS: 36415; 80053; 85027; 86593

== ENCOUNTER 2019-08-19 15:40 | Inpatient (IN) | payer OTHER ==
--- NOTE | 2019-08-19 14:29 | HP ---
[facility] Re[facility] Assess/Revision - Admission History Admitted to Rehab from: [facility] Date of Admission to Rehab: 08/19/19 - Findings Detox History & Physical reviewed: Yes Concur with findings: Yes Comments/Additional Findings: transferred from detox to rehab admission as per protocol Inpatient Rehab Admission - Rehab Decision to Admit Inpatient rehab admission?: Yes - Initial Determination Are CD services needed?: Yes Free of communicable disease: Yes Not in need of hospitalization: Yes - Rehab Admission Criteria Previous failed treatment: Yes Poor recovery environment: Yes Comorbidities: Yes Lacks judgement: Yes Patient is meeting Inpatient Rehab admission criteria:: Yes
[~2019-08-19 15:40] MED LIST: IBUPROFEN 400 MG TABLET (FP) PO PRN; LOPERAMIDE HCL 2 MG CAPSULE PO PRN; MAG HYDROX/AL HYDROX/SIMETH 30 ML UNIT-DOSE CUP PO PRN; MAGNESIUM CITRATE 300 ML BOTTLE PO PRN; MAGNESIUM HYDROX 2400MG/30ML ORAL SUSPENSION 30 ML CUP PO PRN; MENTHOL/PHENOL 1 EACH UD MM PRN; P-EPHED 60MG/TRIPROLIDI 2.5MG TABLET PO PRN; guaiFENesin 200 MG/10 ML 10 ML UNIT-DOSE CUPS PO PRN
[2019-08-19] MEDS: MELATONIN 5 MG TABLETS PO PRN (21:02)
[2019-08-19] MEDS: LISINOPRIL 10 MG TABLET (FP) PO SCH (21:02)
[2019-08-19] MEDS: THIAMINE HCL 100 MG TABLET (FP) PO SCH (21:02)
[2019-08-19] MEDS: NICOTINE POLACRILEX 2 MG GUM BUC PRN (21:03)
[2019-08-20] MEDS: NICOTINE 14 MG/24 HOURS TOPICAL PATCH TD SCH (10:14)
[2019-08-20] MEDS: PRENATAL VITAMINS W/ FOLIC ACID TABLET (FP) PO SCH (10:14)
[2019-08-20] MEDS: LISINOPRIL 10 MG TABLET (FP) PO SCH ×2 (10:14→21:30)
[2019-08-20] MEDS: NICOTINE POLACRILEX 2 MG GUM BUC PRN ×2 (10:15→21:31)
[2019-08-20] MEDS: MELATONIN 5 MG TABLETS PO PRN (21:30)
[2019-08-20] MEDS: THIAMINE HCL 100 MG TABLET (FP) PO SCH (21:30)
[2019-08-21] MEDS: NICOTINE 14 MG/24 HOURS TOPICAL PATCH TD SCH (10:14)
[2019-08-21] MEDS: PRENATAL VITAMINS W/ FOLIC ACID TABLET (FP) PO SCH (10:14)
[2019-08-21] MEDS: IBUPROFEN 600 MG TABLET (FP) PO PRN ×2 (10:14→21:15)
[2019-08-21] MEDS: LISINOPRIL 10 MG TABLET (FP) PO SCH ×2 (10:15→21:15)
[2019-08-21] MEDS: NICOTINE POLACRILEX 2 MG GUM BUC PRN (10:16)
[2019-08-21] MEDS: THIAMINE HCL 100 MG TABLET (FP) PO SCH (21:15)
[2019-08-21] MEDS: MELATONIN 5 MG TABLETS PO PRN (21:15)
[2019-08-22] MEDS: IBUPROFEN 600 MG TABLET (FP) PO PRN ×3 (06:55→15:55)
[2019-08-22] MEDS: NICOTINE 14 MG/24 HOURS TOPICAL PATCH TD SCH (10:28)
[2019-08-22] MEDS: PRENATAL VITAMINS W/ FOLIC ACID TABLET (FP) PO SCH (10:29)
[2019-08-22] MEDS: LISINOPRIL 10 MG TABLET (FP) PO SCH ×2 (10:29→21:27)
[2019-08-22] MEDS: THIAMINE HCL 100 MG TABLET (FP) PO SCH (21:27)
[2019-08-22] MEDS: MELATONIN 5 MG TABLETS PO PRN (21:28)
[2019-08-23] MEDS: LISINOPRIL 10 MG TABLET (FP) PO SCH ×2 (09:36→21:47)
[2019-08-23] MEDS: IBUPROFEN 600 MG TABLET (FP) PO PRN ×2 (09:36→17:34)
[2019-08-23] MEDS: PRENATAL VITAMINS W/ FOLIC ACID TABLET (FP) PO SCH (09:36)
[2019-08-23] MEDS: NICOTINE 14 MG/24 HOURS TOPICAL PATCH TD SCH (09:36)
[2019-08-23] MEDS: NICOTINE POLACRILEX 2 MG GUM BUC PRN ×2 (09:37→17:36)
[2019-08-23] MEDS: BENZOCAINE 20 % GEL TUBE MM PRN ×2 (14:31→21:48)
[2019-08-23] MEDS: THIAMINE HCL 100 MG TABLET (FP) PO SCH (21:47)
[2019-08-23] MEDS: MELATONIN 5 MG TABLETS PO PRN (21:48)
[2019-08-24] MEDS ORDERED: PT OWN MED DRAWER 7, Y5N ONE (09:22)
[2019-08-24] MEDS: NICOTINE POLACRILEX 2 MG GUM BUC PRN ×2 (10:09→17:32)
[2019-08-24] MEDS: LISINOPRIL 10 MG TABLET (FP) PO SCH ×2 (10:09→22:08)
[2019-08-24] MEDS: PRENATAL VITAMINS W/ FOLIC ACID TABLET (FP) PO SCH (10:09)
[2019-08-24] MEDS: IBUPROFEN 600 MG TABLET (FP) PO PRN ×2 (10:09→17:30)
[2019-08-24] MEDS: BENZOCAINE 20 % GEL TUBE MM PRN (10:10)
[2019-08-24] MEDS: NICOTINE 14 MG/24 HOURS TOPICAL PATCH TD SCH (10:10)
[2019-08-24] MEDS: THIAMINE HCL 100 MG TABLET (FP) PO SCH (22:07)
[2019-08-24] MEDS: MELATONIN 5 MG TABLETS PO PRN (22:08)
[2019-08-25] MEDS: IBUPROFEN 600 MG TABLET (FP) PO PRN (06:52)
[2019-08-25] MEDS: NICOTINE 14 MG/24 HOURS TOPICAL PATCH TD SCH (09:56)
[2019-08-25] MEDS: PRENATAL VITAMINS W/ FOLIC ACID TABLET (FP) PO SCH (09:57)
[2019-08-25] MEDS: NICOTINE POLACRILEX 2 MG GUM BUC PRN ×2 (09:57→14:23)
[2019-08-25] MEDS: LISINOPRIL 10 MG TABLET (FP) PO SCH ×2 (09:57→21:41)
[2019-08-25] MEDS: MELATONIN 5 MG TABLETS PO PRN (21:41)
[2019-08-25] MEDS: THIAMINE HCL 100 MG TABLET (FP) PO SCH (21:41)
[2019-08-26] MEDS: PRENATAL VITAMINS W/ FOLIC ACID TABLET (FP) PO SCH (09:54)
[2019-08-26] MEDS: LISINOPRIL 10 MG TABLET (FP) PO SCH ×2 (09:55→21:06)
[2019-08-26] MEDS: IBUPROFEN 600 MG TABLET (FP) PO PRN (09:55)
[2019-08-26] MEDS: NICOTINE 14 MG/24 HOURS TOPICAL PATCH TD SCH (09:55)
[2019-08-26] MEDS: NICOTINE POLACRILEX 2 MG GUM BUC PRN (17:43)
[2019-08-26] MEDS: MELATONIN 5 MG TABLETS PO PRN (21:06)
[2019-08-26] MEDS: THIAMINE HCL 100 MG TABLET (FP) PO SCH (21:06)
[2019-08-27] MEDS: IBUPROFEN 600 MG TABLET (FP) PO PRN (06:18)
[2019-08-27] MEDS ORDERED: LIDOCAINE 1%-EPI 1:100,000 30 ML MDV IJ ONE (08:23)
[2019-08-27] MEDS: NICOTINE 14 MG/24 HOURS TOPICAL PATCH TD SCH (10:38)
[2019-08-27] MEDS: PRENATAL VITAMINS W/ FOLIC ACID TABLET (FP) PO SCH (10:38)
[2019-08-27] MEDS: LISINOPRIL 10 MG TABLET (FP) PO SCH ×2 (10:38→21:38)
[2019-08-27] MEDS: THIAMINE HCL 100 MG TABLET (FP) PO SCH (21:38)
[2019-08-27] MEDS: MELATONIN 5 MG TABLETS PO PRN (21:38)
[2019-08-28] MEDS: IBUPROFEN 600 MG TABLET (FP) PO PRN (06:12)
[2019-08-28] MEDS: NICOTINE 14 MG/24 HOURS TOPICAL PATCH TD SCH (10:43)
[2019-08-28] MEDS: LISINOPRIL 10 MG TABLET (FP) PO SCH ×2 (10:43→21:04)
[2019-08-28] MEDS: PRENATAL VITAMINS W/ FOLIC ACID TABLET (FP) PO SCH (10:43)
[2019-08-28] MEDS: NICOTINE POLACRILEX 2 MG GUM BUC PRN ×2 (10:44→21:07)
[2019-08-28] MEDS: MELATONIN 5 MG TABLETS PO PRN (21:05)
[2019-08-28] MEDS: THIAMINE HCL 100 MG TABLET (FP) PO SCH (21:05)
[2019-08-29] MEDS: IBUPROFEN 600 MG TABLET (FP) PO PRN ×2 (06:13→17:00)
[2019-08-29] MEDS: NICOTINE POLACRILEX 2 MG GUM BUC PRN ×3 (06:14→14:51)
[2019-08-29] MEDS: PRENATAL VITAMINS W/ FOLIC ACID TABLET (FP) PO SCH (09:49)
[2019-08-29] MEDS: NICOTINE 14 MG/24 HOURS TOPICAL PATCH TD SCH (09:49)
[2019-08-29] MEDS: LISINOPRIL 10 MG TABLET (FP) PO SCH ×2 (09:49→21:41)
[2019-08-29] MEDS ORDERED: PT OWN MED DRAWER 7, Y5N ONE (16:57)
[2019-08-29] MEDS: BENZOCAINE 20 % GEL TUBE MM PRN (17:00)
[2019-08-29] MEDS: MELATONIN 5 MG TABLETS PO PRN (21:41)
[2019-08-29] MEDS: THIAMINE HCL 100 MG TABLET (FP) PO SCH (21:41)
[2019-08-30] MEDS: IBUPROFEN 600 MG TABLET (FP) PO PRN ×2 (06:41→16:36)
[2019-08-30] MEDS: LISINOPRIL 10 MG TABLET (FP) PO SCH ×2 (10:07→21:00)
[2019-08-30] MEDS: NICOTINE 14 MG/24 HOURS TOPICAL PATCH TD SCH (10:07)
[2019-08-30] MEDS: PRENATAL VITAMINS W/ FOLIC ACID TABLET (FP) PO SCH (10:07)
[2019-08-30] MEDS: NICOTINE POLACRILEX 2 MG GUM BUC PRN ×2 (10:08→16:36)
[2019-08-30] MEDS: MELATONIN 5 MG TABLETS PO PRN (21:01)
[2019-08-30] MEDS: THIAMINE HCL 100 MG TABLET (FP) PO SCH (21:01)
[2019-08-31] MEDS: PRENATAL VITAMINS W/ FOLIC ACID TABLET (FP) PO SCH (09:32)
[2019-08-31] MEDS: LISINOPRIL 10 MG TABLET (FP) PO SCH ×2 (09:32→21:57)
[2019-08-31] MEDS: IBUPROFEN 600 MG TABLET (FP) PO PRN ×2 (09:32→19:53)
[2019-08-31] MEDS: NICOTINE POLACRILEX 2 MG GUM BUC PRN (09:33)
[2019-08-31] MEDS: NICOTINE 14 MG/24 HOURS TOPICAL PATCH TD SCH (09:34)
[2019-08-31] MEDS: THIAMINE HCL 100 MG TABLET (FP) PO SCH (21:57)
[2019-09-01] MEDS: IBUPROFEN 600 MG TABLET (FP) PO PRN ×4 (06:29→22:06)
[2019-09-01] MEDS: BENZOCAINE 20 % GEL TUBE MM PRN ×2 (06:29→22:08)
[2019-09-01] MEDS: NICOTINE POLACRILEX 2 MG GUM BUC PRN ×2 (06:30→10:55)
[2019-09-01] MEDS: LISINOPRIL 10 MG TABLET (FP) PO SCH ×2 (10:52→21:14)
[2019-09-01] MEDS: PRENATAL VITAMINS W/ FOLIC ACID TABLET (FP) PO SCH (10:52)
[2019-09-01] MEDS: NICOTINE 14 MG/24 HOURS TOPICAL PATCH TD SCH (10:53)
[2019-09-01] MEDS: MELATONIN 5 MG TABLETS PO PRN (21:14)
[2019-09-01] MEDS: THIAMINE HCL 100 MG TABLET (FP) PO SCH (21:14)
[2019-09-01] MEDS ORDERED: PT OWN MED DRAWER 7, Y5N ONE (22:10)
[2019-09-02] MEDS: IBUPROFEN 600 MG TABLET (FP) PO PRN ×4 (06:48→21:36)
[2019-09-02] MEDS: PRENATAL VITAMINS W/ FOLIC ACID TABLET (FP) PO SCH (10:40)
[2019-09-02] MEDS: NICOTINE 14 MG/24 HOURS TOPICAL PATCH TD SCH (10:40)
[2019-09-02] MEDS: LISINOPRIL 10 MG TABLET (FP) PO SCH ×2 (10:41→21:35)
[2019-09-02] MEDS: NICOTINE POLACRILEX 2 MG GUM BUC PRN (10:43)
[2019-09-02] MEDS: BENZOCAINE 20 % GEL TUBE MM PRN ×2 (10:44→19:52)
[2019-09-02] MEDS: THIAMINE HCL 100 MG TABLET (FP) PO SCH (21:35)
[2019-09-02] MEDS: MELATONIN 5 MG TABLETS PO PRN (21:35)
[2019-09-03] MEDS: IBUPROFEN 600 MG TABLET (FP) PO PRN ×4 (06:24→19:16)
[2019-09-03] MEDS: NICOTINE POLACRILEX 2 MG GUM BUC PRN ×2 (06:25→10:30)
[2019-09-03] MEDS: PRENATAL VITAMINS W/ FOLIC ACID TABLET (FP) PO SCH (10:25)
[2019-09-03] MEDS: BENZOCAINE 20 % GEL TUBE MM PRN (10:25)
[2019-09-03] MEDS: LISINOPRIL 10 MG TABLET (FP) PO SCH ×2 (10:25→21:00)
[2019-09-03] MEDS: NICOTINE 14 MG/24 HOURS TOPICAL PATCH TD SCH (10:25)
--- NOTE | 2019-09-03 15:40 | PN ---
[facility] Progress Note (SOAP) Subjective: Pt c/o upper right molar tooth ache for 5 to 6 days. Reports has headache and can't sleep at night partly due to headache. Objective: 09/03/19 15:37 Vital Signs - 24 hr 09/03/19 09/03/19 09/03/19 00:30 03:30 07:10 Temperature 97.7 F Pulse Rate 82 Respiratory 18 18 18 Rate Blood Pressure 133/95 09/03/19 09:30 Temperature Pulse Rate 92 H Respiratory 18 Rate Blood Pressure 136/86 Oral exam:Upper right molar decay with swelling/slight redness to surrounding gum area. Assessment: 09/03/19 15:38 Gingivitis Tooth decay Plan: Clindamycine 150 mg po Q6H x 7 days D/W the pt will need to follow up with his dentist after discharge from rehab.
[2019-09-03] MEDS ORDERED: PT OWN MED DRAWER 7, Y5N ONE (17:25)
[2019-09-03] MEDS: CLINDAMYCIN HCL 150 MG CAPSULE (FP) PO SCH ×2 (19:16→23:35)
[2019-09-03] MEDS: MELATONIN 5 MG TABLETS PO PRN (21:00)
[2019-09-03] MEDS: THIAMINE HCL 100 MG TABLET (FP) PO SCH (21:00)
[2019-09-04] MEDS: IBUPROFEN 600 MG TABLET (FP) PO PRN ×4 (06:43→21:46)
[2019-09-04] MEDS: CLINDAMYCIN HCL 150 MG CAPSULE (FP) PO SCH ×4 (06:43→23:20)
[2019-09-04] MEDS: LISINOPRIL 10 MG TABLET (FP) PO SCH ×2 (10:02→21:45)
[2019-09-04] MEDS: PRENATAL VITAMINS W/ FOLIC ACID TABLET (FP) PO SCH (10:02)
[2019-09-04] MEDS: NICOTINE 14 MG/24 HOURS TOPICAL PATCH TD SCH (10:04)
[2019-09-04] MEDS: ACETAMINOPHEN 325 MG TABLET (FP) PO PRN (13:51)
[2019-09-04] MEDS: BENZOCAINE 20 % GEL TUBE MM PRN (13:53)
[2019-09-04] MEDS: MELATONIN 5 MG TABLETS PO PRN (21:45)
[2019-09-04] MEDS: THIAMINE HCL 100 MG TABLET (FP) PO SCH (21:45)
[2019-09-05] MEDS: CLINDAMYCIN HCL 150 MG CAPSULE (FP) PO SCH ×4 (06:36→23:33)
[2019-09-05] MEDS: IBUPROFEN 600 MG TABLET (FP) PO PRN ×3 (06:37→21:02)
[2019-09-05] MEDS: LISINOPRIL 10 MG TABLET (FP) PO SCH ×2 (10:33→21:01)
[2019-09-05] MEDS: NICOTINE 14 MG/24 HOURS TOPICAL PATCH TD SCH (10:33)
[2019-09-05] MEDS: PRENATAL VITAMINS W/ FOLIC ACID TABLET (FP) PO SCH (10:33)
[2019-09-05] MEDS: BENZOCAINE 20 % GEL TUBE MM PRN (10:35)
[2019-09-05] MEDS ORDERED: PT OWN MED DRAWER 7, Y5N ONE (16:54)
[2019-09-05] MEDS: MELATONIN 5 MG TABLETS PO PRN (21:01)
[2019-09-05] MEDS: THIAMINE HCL 100 MG TABLET (FP) PO SCH (21:01)
[2019-09-06] MEDS: IBUPROFEN 600 MG TABLET (FP) PO PRN ×3 (06:43→18:38)
[2019-09-06] MEDS: CLINDAMYCIN HCL 150 MG CAPSULE (FP) PO SCH ×4 (06:43→23:50)
[2019-09-06] MEDS: PRENATAL VITAMINS W/ FOLIC ACID TABLET (FP) PO SCH (10:53)
[2019-09-06] MEDS: LISINOPRIL 10 MG TABLET (FP) PO SCH ×2 (10:53→22:18)
[2019-09-06] MEDS: NICOTINE 14 MG/24 HOURS TOPICAL PATCH TD SCH (10:54)
[2019-09-06] MEDS: NICOTINE POLACRILEX 2 MG GUM BUC PRN ×2 (10:54→18:41)
[2019-09-06] MEDS: THIAMINE HCL 100 MG TABLET (FP) PO SCH (22:18)
[2019-09-06] MEDS: MELATONIN 5 MG TABLETS PO PRN (22:18)
[2019-09-06] MEDS: ACETAMINOPHEN 325 MG TABLET (FP) PO PRN (22:19)
[2019-09-07] MEDS: IBUPROFEN 600 MG TABLET (FP) PO PRN ×3 (06:34→17:15)
[2019-09-07] MEDS: CLINDAMYCIN HCL 150 MG CAPSULE (FP) PO SCH ×3 (06:35→17:14)
[2019-09-07] MEDS: NICOTINE POLACRILEX 2 MG GUM BUC PRN ×3 (06:35→12:02)
[2019-09-07] MEDS: LISINOPRIL 10 MG TABLET (FP) PO SCH ×2 (09:41→23:02)
[2019-09-07] MEDS: PRENATAL VITAMINS W/ FOLIC ACID TABLET (FP) PO SCH (09:41)
[2019-09-07] MEDS: NICOTINE 14 MG/24 HOURS TOPICAL PATCH TD SCH (09:41)
[2019-09-07] MEDS: THIAMINE HCL 100 MG TABLET (FP) PO SCH (23:02)
[2019-09-08] MEDS: CLINDAMYCIN HCL 150 MG CAPSULE (FP) PO SCH ×5 (00:23→23:58)
[2019-09-08] MEDS: IBUPROFEN 600 MG TABLET (FP) PO PRN ×3 (06:58→14:31)
[2019-09-08] MEDS: LISINOPRIL 10 MG TABLET (FP) PO SCH ×2 (10:07→21:43)
[2019-09-08] MEDS: PRENATAL VITAMINS W/ FOLIC ACID TABLET (FP) PO SCH (10:07)
[2019-09-08] MEDS: NICOTINE 14 MG/24 HOURS TOPICAL PATCH TD SCH (10:07)
[2019-09-08] MEDS: NICOTINE POLACRILEX 2 MG GUM BUC PRN (14:31)
[2019-09-08] MEDS ORDERED: PT OWN MED DRAWER 7, Y5N ONE (16:41)
[2019-09-08] MEDS: MELATONIN 5 MG TABLETS PO PRN (21:43)
[2019-09-08] MEDS: THIAMINE HCL 100 MG TABLET (FP) PO SCH (21:43)
[2019-09-09] MEDS: CLINDAMYCIN HCL 150 MG CAPSULE (FP) PO SCH ×4 (06:14→23:53)
[2019-09-09] MEDS: IBUPROFEN 600 MG TABLET (FP) PO PRN ×3 (06:15→14:10)
[2019-09-09] MEDS: LISINOPRIL 10 MG TABLET (FP) PO SCH ×2 (09:39→21:06)
[2019-09-09] MEDS: PRENATAL VITAMINS W/ FOLIC ACID TABLET (FP) PO SCH (09:39)
[2019-09-09] MEDS: NICOTINE 14 MG/24 HOURS TOPICAL PATCH TD SCH (09:40)
[2019-09-09] MEDS: NICOTINE POLACRILEX 2 MG GUM BUC PRN (14:11)
[2019-09-09] MEDS: MELATONIN 5 MG TABLETS PO PRN (21:07)
[2019-09-09] MEDS: THIAMINE HCL 100 MG TABLET (FP) PO SCH (21:07)
[2019-09-10] MEDS: CLINDAMYCIN HCL 150 MG CAPSULE (FP) PO SCH ×2 (06:32→12:06)
[2019-09-10] MEDS: IBUPROFEN 600 MG TABLET (FP) PO PRN ×4 (06:32→21:54)
[2019-09-10] MEDS: NICOTINE POLACRILEX 2 MG GUM BUC PRN ×2 (06:33→10:31)
--- NOTE | 2019-09-10 09:39 | DS ---
[facility] Rehab Discharge Summary - [facility] Rehab Discharge Summary Admission Date: 08/19/19 Discharge Date: 09/11/19 - History Present History: Alcohol dependence, Cannabis dependence Pertinent Past History: Patient is a 53 year old male with alcohol and nicotine dependence. His last detox at [facility] was 02/11-02/14/19. He reports his longest period of sobriety was 10 years ago. - Discharge Physical Exam Vital Signs: Vital Signs Temperature 98.5 F 09/10/19 09:13 Pulse Rate 95 H 09/10/19 09:13 Respiratory Rate 18 09/10/19 09:13 Blood Pressure 106/60 09/10/19 09:13 O2 Sat by Pulse Oximetry (%) Pertinent Admission Physical Exam Findings: Physical General Appearance: No Apparent Distress HEENTM: Normocephalic Respiratory: Lungs Clear, Neck: Supple Cardiology: S1, S2 Abdominal: +Bowel Sounds, Non Tender Musculoskeletal: Gait Steady, Full weight bearing, full ROM Neurological: tip tester II-XII NML intact, - Treatment Discharge Condition: Discharge condition good (Medically stable for discharge. Patient will go to [facility]) Hospital Course: patient attended groups, had 1:1 meetings with his counselor, was adherent to his treatment plan and medication regimen. He had no acute medical problems during his stay in rehab. - Medication Discharge Medications: Ambulatory Orders Clindamycin [Cleocin -] 150 mg PO Q6HPO #30 capsule 09/10/19 Ibuprofen [Motrin -] 600 mg PO Q4H PRN #14 tablet 09/10/19 Lisinopril [Prinivil] 5 mg PO BID #60 tablet 09/10/19 - Medication-Assisted Treatment (MAT) Medication-Assisted Treatment (MAT): No - Discharge Instructions Diet, activity, other medical instructions: Diet: as tolerated Activity: as tolerated Other medical instructions: Please follow up with aftercare at [facility]. - Diagnosis (1) Alcohol dependence with uncomplicated withdrawal Current Visit: No Status: Chronic (2) Cannabis abuse Current Visit: No Status: Chronic - Follow-up Referral Minutes to complete discharge: 20 - AMA Did Patient Leave Against Medical Advice: No
[2019-09-10] MEDS: LISINOPRIL 10 MG TABLET (FP) PO SCH ×2 (10:31→21:53)
[2019-09-10] MEDS: PRENATAL VITAMINS W/ FOLIC ACID TABLET (FP) PO SCH (10:31)
[2019-09-10] MEDS: NICOTINE 14 MG/24 HOURS TOPICAL PATCH TD SCH (10:31)
[2019-09-10] MEDS: MELATONIN 5 MG TABLETS PO PRN (21:54)
[2019-09-10] MEDS: THIAMINE HCL 100 MG TABLET (FP) PO SCH (21:54)
[2019-09-11] MEDS: IBUPROFEN 600 MG TABLET (FP) PO PRN (06:18)
[2019-09-11 06:41] VITALS: BP 149/97; PULSE 81; TEMP 98.1
== END 2019-09-11 08:35 | disposition home or self-care (01) | DRG 772 ==
LOC: YASAS 15:40 → Y3W 15:41
PROVIDERS: ADMIT Neuromusculoskeletal Medicine & OMM; ATTEND Neuromusculoskeletal Medicine & OMM
PROC: HZ42ZZZ Group Counseling for Substance Abuse Treatment, Cognitive-Behavioral (ICD-10-PCS; principal; 2019-08-19)
DX: F10.20 Alcohol dependence, uncomplicated (principal); F12.10 Cannabis abuse, uncomplicated; F17.210 Nicotine dependence, cigarettes, uncomplicated; I10 Essential (primary) hypertension; K05.10 Chronic gingivitis, plaque induced; K02.9 Dental caries, unspecified; Z88.0 Allergy status to penicillin; Z91.018 Allergy to other foods

== ENCOUNTER 2020-01-08 13:47 | Inpatient (IN) | payer OTHER ==
--- NOTE | 2020-01-08 15:15 | B[facility].RME ---
Substance Use & Tx History - Substance Use History Alcohol Substance amount: 3 pints Vodka Frequency of use: Daily Substance route: Oral Date of Last Use: 01/07/20 - Last Treatment Treatment type: Substance Use Disorder (CHRISTA) Where was last treatment: Rehab Physical/Psych/Mental Status - Behavior General Behavior: Increased activity (restlessness, agitation) Eye Contact: Normal - Cooperativeness Cooperativeness: Cooperative - Thinking Thought Processes: Tight Thought content: Future oriented - Physical Health Problems Is patient presently having any pain?: Yes (body aches) Does patient presently have any injuries (include location): No Does patient currently have a fever: No Is patient : No CIWA Nausea/Vomitin Muscle Tremors: 2 Anxiety: 2 Agitation: 0-Normal Activity Paroxysmal Sweats: 2 Orientation: 3-Disoriented Date>2 days Tacttile Disturbances: 0-None Auditory Disturbances: 0-None Visual Disturbances: 2-Mild Sensitivity Headache: 2-Mild CIWA-Ar Total Score: 16
[2020-01-08 17:59] VITALS: BMI 27.6
--- NOTE | 2020-01-08 18:26 | HP ---
CIWA Score Nausea/Vomitin Muscle Tremors: 2 Anxiety: 2 Agitation: 0-Normal Activity Paroxysmal Sweats: 2 Orientation: 3-Disoriented Date>2 days Tacttile Disturbances: 0-None Auditory Disturbances: 0-None Visual Disturbances: 2-Mild Sensitivity Headache: 2-Mild CIWA-Ar Total Score: 16 - Admission Criteria OASAS Guidelines: Admission for Medically Managed Detox: Requires at least one of the followin. CIWA greater than 12 2. Seizures within the past 24 hours 3. Delirium tremens within the past 24 hours 4. Hallucinations within the past 24 hours 5. Acute intervention needed for co occurring medical disorder 6. Acute intervention needed for co occurring psychiatric disorder 7. Severe withdrawal that cannot be handled at a lower level of care (continued vomiting, continued diarrhea, abnormal vital signs) requiring intravenous medication and/or fluids 8. Admitting History and Physical - Smoking History Smoking history: Current every day smoker Have you smoked in the past 12 months: Yes Aproximately how many cigarettes per day: 10 - Alcohol/Substance Use Hx Alcohol Use: Yes Admission ROS [facility] Chief Complaint: Withdrawal symptoms. Allergies/Adverse Reactions: Allergies Allergy/AdvReac Type Severity Reaction Status Date / Time mayonnaise Allergy Verified 01/08/20 17:50 Penicillins Allergy Verified 01/08/20 17:50 History of Present Illness: 54 y.o. man with an extensive history of alcohol dependence is here for detox. He reports he last completed detox at [facility] 2 months ago. Longest period of sobriety has been 8 years; states he relapsed 6 years ago. Exam Limitations: No Limitations - Ebola screening Have you traveled outside of the country in the last 21 days: No Have you had contact with anyone from an Ebola affected area: No Do you have a fever: No - Review of Systems Constitutional: No Symptoms Reported EENT: reports: Nose Congestion Respiratory: reports: No Symptoms reported Cardiac: reports: No Symptoms Reported GI: reports: Diarrhea, Abdominal cramping : reports: No Symptoms Reported Musculoskeletal: reports: Back Pain, Joint Pain, Neck Pain Integumentary: reports: No Symptoms Reported Neuro: reports: Headache, Numbness, Tingling, Other (H/o of syncope) Endocrine: reports: No Symptoms Reported Hematology: reports: No Symptoms Reported Psychiatric: reports: Anxious, Depressed Other Systems: Reviewed and Negative Patient History - Patient Medical History Hx Anemia: No Hx Asthma: No Hx Chronic Obstructive Pulmonary Disease (COPD): No Hx Cancer: No Hx Cardiac Disorders: No Hx Congestive Heart Failure: No Hx Hypertension: Yes Hx Hypercholesterolemia: No Hx Pacemaker: No HX Cerebrovascular Accident: No Hx Seizures: No Hx Dementia: No Hx Diabetes: No Hx Gastrointestinal Disorders: No Hx Liver Disease: No Hx Genitourinary Disorders: No Hx Sexually Transmitted Disorders: No Hx Renal Disease (ESRD): No Hx Thyroid Disease: No Hx Human Immunodeficiency Virus (HIV): No Hx Hepatitis C: No Hx Depression: Yes Hx Suicide Attempt: No Hx Bipolar Disorder: No Hx Schizophrenia: No Other Medical History: H/O SYNCOPE - Patient Surgical History Past Surgical History: Yes Hx Neurologic Surgery: No Hx Cataract Extraction: No Hx Cardiac Surgery: No Hx Lung Surgery: No Hx Breast Surgery: No Hx Breast Biopsy: No Hx Abdominal Surgery: No Hx Appendectomy: No Hx Cholecystectomy: No Hx Genitourinary Surgery: No Hx Section: No Hx Orthopedic Surgery: No Other Surgical History: Neck surgery May 2019 Anesthesia Reaction: No - PPD History Date: 08/12/18 Results: neg chest x-ray PPD to be Administered?: No - Reproductive History Patient is a Female of Child Bearing Age (11 -55 yrs old): No Patient : No - Smoking Cessation Smoking history: Current every day smoker Have you smoked in the past 12 months: Yes Aproximately how many cigarettes per day: 10 Hx Chewing Tobacco Use: No Initiated information on smoking cessation: Yes 'Breaking Loose' booklet given: 01/08/20 - Substance & Tx. History Hx Alcohol Use: Yes Hx Substance Use: No Substance Use Type: Alcohol Hx Substance Use Treatment: Yes (Detox at [facility] 11/2019) - Substances abused Alcohol Substance route: Inhalation Frequency: Daily Amount used: 3 pints of vodka/ 2 or 3 beers. Age of first use: 25 Date of last use: 01/07/20 Admission Physical Exam [facility] - Vital Signs Vital Signs: Vital Signs - 24 hr 01/08/20 17:53 Temperature 97.1 F L Pulse Rate 100 H Respiratory 18 Rate Blood Pressure 146/102 H - Physical General Appearance: Yes: Tremorous, Sweating, Anxious HEENTM: Yes: Hearing grossly Normal, Normocephalic, Normal Voice Respiratory: Yes: Lungs Clear, Normal Breath Sounds, No Respiratory Distress Neck: Yes: Within Normal Limits, No masses,lesions,Nodules, Trachea in good position Breast: Yes: Breast Exam Deferred Cardiology: Yes: Regular Rhythm, Regular Rate Abdominal: Yes: Non Tender, Flat, Soft Genitourinary: Yes: Other (No complaints reported.) Back: Yes: Normal Inspection Musculoskeletal: Yes: full range of Motion, Gait Steady, Pelvis Stable, Back pain, Joint Stiffness Extremities: Yes: Normal Capillary Refill, Normal Inspection, Normal Range of Motion, Non-Tender Neurological: Yes: Alert, Normal Mood/Affect, Normal Response Integumentary: Yes: Normal Color, Dry, Warm Lymphatic: Yes: Within Normal Limits - Diagnostic (1) Nicotine dependence Current Visit: Yes Status: Chronic Qualifiers: Nicotine product type: cigarettes Substance use status: in withdrawal Qualified Code(s): F17.213 - Nicotine dependence, cigarettes, with withdrawal (2) Syncope Current Visit: Yes Status: Chronic Comment: Alcohol induced syncope (3) Alcohol dependence with uncomplicated withdrawal Current Visit: Yes Status: Chronic (4) Essential hypertension Current Visit: Yes Status: Chronic (5) Positive PPD Current Visit: Yes Status: Chronic Cleared for Admission S - Detox or Rehab [facility] Level of Care: Medically Managed Detox Regimen/Protocol: Valium Claeared for Rehab Admission: No Breathalyzer - Breathalyzer Breathalyzer: 0 POC Urine test - Test device test lot number: [id number] Expiration date: 06/28/20 - Control test control: Yes Urine Drug Screen - Test Device Lot number: [id number] Expiration date: 09/27/21 - Control Is test valid?: Yes - Results Drug screen NEGATIVE: No Urine drug screen results: THC-Marijuana, BZO-Benzodiazepines Inpatient Rehab Admission - Rehab Decision to Admit Inpatient rehab admission?: No
[2020-01-08] MEDS ORDERED: MAG HYDROX/AL HYDROX/SIMETH 30 ML UNIT-DOSE CUP PO PRN (18:29)
[2020-01-08] MEDS ORDERED: ONDANSETRON *ODT* 4 MG TABLET SL ONE (18:29)
[2020-01-08] MEDS ORDERED: METHOCARBAMOL 500 MG TABLET PO PRN (18:29)
[2020-01-08] MEDS ORDERED: MENTHOL/PHENOL 1 EACH UD MM PRN (18:29)
[2020-01-08] MEDS ORDERED: NICOTINE POLACRILEX 2 MG GUM BUC PRN (18:29)
[2020-01-08] MEDS ORDERED: MAGNESIUM HYDROX 2400MG/30ML ORAL SUSPENSION 30 ML CUP PO PRN (18:29)
[2020-01-08] MEDS ORDERED: ACETAMINOPHEN 325 MG TABLET (FP) PO PRN ×2 (18:29)
[2020-01-08] MEDS ORDERED: BISMUTH SUBSALICYLATE 524 MG/30 ML UD PO PRN (18:29)
[2020-01-08] MEDS ORDERED: MAGNESIUM CITRATE 300 ML BOTTLE PO PRN (18:29)
[2020-01-08] MEDS ORDERED: IBUPROFEN 400 MG TABLET (FP) PO PRN (18:29)
[2020-01-08] MEDS ORDERED: SUVOREXANT 10 MG TABLET PO PRN (18:31)
[2020-01-08] MEDS: diazePAM 5 MG TABLET PO PRN (19:34)
[2020-01-08] MEDS: LISINOPRIL 5 MG TABLET (FP) PO SCH (22:21)
[2020-01-08] MEDS: diazePAM 5 MG TABLET PO SCH (22:21)
[2020-01-08] MEDS: THIAMINE HCL 100 MG TABLET (FP) PO SCH (22:21)
[2020-01-08] MEDS: MELATONIN 5 MG TABLETS PO SCH (22:21)
[2020-01-08] MEDS: METHYL SALICYLATE/MENTHOL OINT 30 GM TUBE TP SCH (22:21)
[2020-01-08] MEDS: hydrOXYzine PAMOATE 25 MG CAPSULE (FP) PO SCH (22:21)
[2020-01-09] MEDS: diazePAM 5 MG TABLET PO SCH ×3 (08:11→22:12)
[2020-01-09] MEDS: hydrOXYzine PAMOATE 25 MG CAPSULE (FP) PO SCH ×5 (08:11→22:12)
[2020-01-09] MEDS: PRENATAL VITAMINS W/ FOLIC ACID TABLET (FP) PO SCH (10:21)
[2020-01-09] MEDS: LISINOPRIL 5 MG TABLET (FP) PO SCH ×2 (10:21→22:12)
[2020-01-09] MEDS: METHYL SALICYLATE/MENTHOL OINT 30 GM TUBE TP SCH ×2 (10:22→22:13)
[2020-01-09] MEDS: NICOTINE 14 MG/24 HOURS TOPICAL PATCH TD SCH (10:22)
[2020-01-09 10:27] LABS: HEMATOCRIT 36.7 % (35.4-49); HEMOGLOBIN 12.5 GM/dL (11.7-16.9); MCH 29.1 pg (25.7-33.7); MCHC 34.1 g/dl (32.0-35.9); MEAN CELL VOLUME 85.3 fl (80-96); MEAN PLT VOLUME 8.5 fl (7.5-11.1); PLATELET COUNT 263 K/MM3 (134-434); RBC 4.31 M/mm3 (4.00-5.60); RDW 13.6 % (11.9-15.9); WHITE BLOOD COUNT 5.7 K/mm3 (4.0-10.0)
[2020-01-09 10:40] LABS: ALBUMIN 3.3 g/dl (3.4-5.0); BILIRUBIN,TOTAL 0.3 mg/dL (0.2-1); BLOOD UREA NITROGEN 8.4 mg/dL (7-18); CALCIUM 8.6 mg/dL (8.5-10.1); CREATININE 0.8 mg/dL (0.55-1.3); POTASSIUM 3.7 mmol/L (3.5-5.1); TOT PROT 6.8 g/dl (6.4-8.2)
--- NOTE | 2020-01-09 11:12 | PN ---
[facility] CIWA - CIWA Score Nausea/Vomitin-No Nausea/No Vomiting Muscle Tremors: 3 Anxiety: 1-Mildly Anxious Agitation: 0-Normal Activity Paroxysmal Sweats: 1-Minimal Palms Moist Orientation: 2-Disoriented Date<2 days Tacttile Disturbances: 0-None Auditory Disturbances: 1-Very Mild Visual Disturbances: 1-Very Mild Sensitivity Headache: 0-None Present CIWA-Ar Total Score: 9 [facility] Progress Note (SOAP) Subjective: No complaints Objective: 01/09/20 11:10 Laboratory Tests 01/09/20 01/09/20 07:30 07:30 WBC 5.7 RBC 4.31 Hgb 12.5 Hct 36.7 MCV 85.3 MCH 29.1 MCHC 34.1 RDW 13.6 Plt Count 263 MPV 8.5 Sodium 138 Potassium 3.7 Chloride 104 Carbon Dioxide 26 Anion Gap 7 L BUN 8.4 Creatinine 0.8 Est GFR (CKD-EPI)AfAm 117.38 Est GFR (CKD-EPI)NonAf 101.27 Random Glucose 89 Calcium 8.6 Total Bilirubin 0.3 AST 25 ALT 22 Alkaline Phosphatase 79 Total Protein 6.8 Albumin 3.3 L Vital Signs Temperature 97.8 F 01/09/20 08:51 Pulse Rate 82 01/09/20 08:51 Respiratory Rate 18 01/09/20 08:51 Blood Pressure 132/88 01/09/20 08:51 O2 Sat by Pulse Oximetry (%) PE Gnl: WDWN, in no distress Mental status: awake, alert, follows complex commands Motor; tremor with arm extension Coord: nl Assessment: 01/09/20 11:11 1. Alcohol use disorder Plan: 1. Continue Valium withdrawal protocol
--- NOTE | 2020-01-09 11:16 | CONSULT ---
[facility] Psychiatric Consult - Data Date of interview: 01/09/20 Admission source: [facility] Identifying data: Mr Zaragoza refused psychiatric interview. Nursing staff is made aware.
[2020-01-09] MEDS: diazePAM 5 MG TABLET PO PRN (17:58)
[2020-01-09] MEDS: THIAMINE HCL 100 MG TABLET (FP) PO SCH (22:12)
[2020-01-09] MEDS: MELATONIN 5 MG TABLETS PO SCH (22:12)
[2020-01-10] MEDS: hydrOXYzine PAMOATE 25 MG CAPSULE (FP) PO SCH ×5 (07:34→22:52)
[2020-01-10] MEDS: diazePAM 5 MG TABLET PO SCH ×2 (07:34→18:38)
[2020-01-10] MEDS: PRENATAL VITAMINS W/ FOLIC ACID TABLET (FP) PO SCH (10:20)
[2020-01-10] MEDS: METHYL SALICYLATE/MENTHOL OINT 30 GM TUBE TP SCH ×2 (10:20→22:53)
[2020-01-10] MEDS: LISINOPRIL 5 MG TABLET (FP) PO SCH ×2 (10:20→22:52)
[2020-01-10] MEDS: NICOTINE 14 MG/24 HOURS TOPICAL PATCH TD SCH (10:21)
--- NOTE | 2020-01-10 15:12 | PN ---
[facility] CIWA - CIWA Score Nausea/Vomitin-No Nausea/No Vomiting Muscle Tremors: None Anxiety: 2 Agitation: 0-Normal Activity Paroxysmal Sweats: 2 Orientation: 0-Oriented Tacttile Disturbances: 0-None Auditory Disturbances: 0-None Visual Disturbances: 0-None Headache: 0-None Present CIWA-Ar Total Score: 4 S Progress Note (SOAP) Subjective: complains of mild anxiety and sweats. Objective: 01/10/20 15:09 Vital Signs Temperature 98.6 F 01/10/20 12:30 Pulse Rate 75 01/10/20 12:30 Respiratory Rate 16 01/10/20 12:30 Blood Pressure 135/96 01/10/20 12:30 O2 Sat by Pulse Oximetry (%) Laboratory Last Values WBC 5.7 K/mm3 (4.0-10.0) 01/09/20 07:30 RBC 4.31 M/mm3 (4.00-5.60) 01/09/20 07:30 Hgb 12.5 GM/dL (11.7-16.9) 01/09/20 07:30 Hct 36.7 % (35.4-49) 01/09/20 07:30 MCV 85.3 fl (80-96) 01/09/20 07:30 MCH 29.1 pg (25.7-33.7) 01/09/20 07:30 MCHC 34.1 g/dl (32.0-35.9) 01/09/20 07:30 RDW 13.6 % (11.9-15.9) 01/09/20 07:30 Plt Count 263 K/MM3 (134-434) 01/09/20 07:30 MPV 8.5 fl (7.5-11.1) 01/09/20 07:30 Sodium 138 mmol/L (136-145) 01/09/20 07:30 Potassium 3.7 mmol/L (3.5-5.1) 01/09/20 07:30 Chloride 104 mmol/L (98-107) 01/09/20 07:30 Carbon Dioxide 26 mmol/L (21-32) 01/09/20 07:30 Anion Gap 7 MMOL/L (8-16) L 01/09/20 07:30 BUN 8.4 mg/dL (7-18) 01/09/20 07:30 Creatinine 0.8 mg/dL (0.55-1.3) 01/09/20 07:30 Est GFR (CKD-EPI)AfAm 117.38 01/09/20 07:30 Est GFR (CKD-EPI)NonAf 101.27 01/09/20 07:30 Random Glucose 89 mg/dL (74-106) 01/09/20 07:30 Calcium 8.6 mg/dL (8.5-10.1) 01/09/20 07:30 Total Bilirubin 0.3 mg/dL (0.2-1) 01/09/20 07:30 AST 25 U/L (15-37) 01/09/20 07:30 ALT 22 U/L (13-61) 01/09/20 07:30 Alkaline Phosphatase 79 U/L (45-117) 01/09/20 07:30 Total Protein 6.8 g/dl (6.4-8.2) 01/09/20 07:30 Albumin 3.3 g/dl (3.4-5.0) L 01/09/20 07:30 RPR Titer Nonreactive (NONREACTIVE) 01/09/20 07:30 labs reviewed. Assessment: Pt is AO x3, in no acute respiratory distress. Withdrawal symptoms. Moving all extremities. For D/C in AM. Plan: Continue detox protocol. D/C in AM.
[2020-01-10] MEDS: THIAMINE HCL 100 MG TABLET (FP) PO SCH (22:52)
[2020-01-10] MEDS: MELATONIN 5 MG TABLETS PO SCH (22:52)
[2020-01-11] MEDS ORDERED: diazePAM 5 MG TABLET PO ONE (06:00)
[2020-01-11] MEDS: hydrOXYzine PAMOATE 25 MG CAPSULE (FP) PO SCH ×5 (06:27→22:30)
[2020-01-11] MEDS: NICOTINE 14 MG/24 HOURS TOPICAL PATCH TD SCH (10:26)
[2020-01-11] MEDS: METHYL SALICYLATE/MENTHOL OINT 30 GM TUBE TP SCH ×2 (10:26→22:30)
[2020-01-11] MEDS: diazePAM 5 MG TABLET PO PRN (10:26)
[2020-01-11] MEDS: LISINOPRIL 5 MG TABLET (FP) PO SCH ×2 (10:26→22:30)
[2020-01-11] MEDS: PRENATAL VITAMINS W/ FOLIC ACID TABLET (FP) PO SCH (10:26)
--- NOTE | 2020-01-11 11:38 | PN ---
[facility] CIWA - CIWA Score Nausea/Vomitin-No Nausea/No Vomiting Muscle Tremors: 1-None Visible, but [place] Anxiety: 1-Mildly Anxious Agitation: 0-Normal Activity Paroxysmal Sweats: No Perspiration Orientation: 0-Oriented Tacttile Disturbances: 0-None Auditory Disturbances: 0-None Visual Disturbances: 0-None Headache: 0-None Present CIWA-Ar Total Score: 2 S Progress Note (SOAP) Subjective: 54 years old male admitted on 01/08/20 for alcohol withdrawal sx management treating with valium detox regiment feeling better today less tremor mild anxiety encourage the patient to attend behavior modification groups and meetings as we ll as psychosocial therapy Objective: 01/11/20 11:38 Vital Signs Temperature 98.1 F 01/11/20 09:34 Pulse Rate 96 H 01/11/20 09:34 Respiratory Rate 18 01/11/20 09:34 Blood Pressure 118/80 01/11/20 09:34 O2 Sat by Pulse Oximetry (%) Laboratory Last Values WBC 5.7 K/mm3 (4.0-10.0) 01/09/20 07:30 RBC 4.31 M/mm3 (4.00-5.60) 01/09/20 07:30 Hgb 12.5 GM/dL (11.7-16.9) 01/09/20 07:30 Hct 36.7 % (35.4-49) 01/09/20 07:30 MCV 85.3 fl (80-96) 01/09/20 07:30 MCH 29.1 pg (25.7-33.7) 01/09/20 07:30 MCHC 34.1 g/dl (32.0-35.9) 01/09/20 07:30 RDW 13.6 % (11.9-15.9) 01/09/20 07:30 Plt Count 263 K/MM3 (134-434) 01/09/20 07:30 MPV 8.5 fl (7.5-11.1) 01/09/20 07:30 Sodium 138 mmol/L (136-145) 01/09/20 07:30 Potassium 3.7 mmol/L (3.5-5.1) 01/09/20 07:30 Chloride 104 mmol/L (98-107) 01/09/20 07:30 Carbon Dioxide 26 mmol/L (21-32) 01/09/20 07:30 Anion Gap 7 MMOL/L (8-16) L 01/09/20 07:30 BUN 8.4 mg/dL (7-18) 01/09/20 07:30 Creatinine 0.8 mg/dL (0.55-1.3) 01/09/20 07:30 Est GFR (CKD-EPI)AfAm 117.38 01/09/20 07:30 Est GFR (CKD-EPI)NonAf 101.27 01/09/20 07:30 Random Glucose 89 mg/dL (74-106) 01/09/20 07:30 Calcium 8.6 mg/dL (8.5-10.1) 01/09/20 07:30 Total Bilirubin 0.3 mg/dL (0.2-1) 01/09/20 07:30 AST 25 U/L (15-37) 01/09/20 07:30 ALT 22 U/L (13-61) 01/09/20 07:30 Alkaline Phosphatase 79 U/L (45-117) 01/09/20 07:30 Total Protein 6.8 g/dl (6.4-8.2) 01/09/20 07:30 Albumin 3.3 g/dl (3.4-5.0) L 01/09/20 07:30 RPR Titer Nonreactive (NONREACTIVE) 01/09/20 07:30 lab noted Assessment: 01/11/20 11:39 alcohol withdrawal Plan: valium regiment
[2020-01-11] MEDS: MELATONIN 5 MG TABLETS PO SCH (22:30)
[2020-01-11] MEDS: THIAMINE HCL 100 MG TABLET (FP) PO SCH (22:30)
[2020-01-12] MEDS: hydrOXYzine PAMOATE 25 MG CAPSULE (FP) PO SCH ×2 (06:15→11:02)
[2020-01-12 09:20] VITALS: BP 147/87; PULSE 81; TEMP 97.4
--- NOTE | 2020-01-12 10:44 | DS ---
[facility] Detox Discharge Summary Admission Date: 01/08/20 Discharge Date: 01/12/20 - History Present History: Alcohol Dependence Additional Comments: 54 years old male admitted on 01/08/20 for alcohol withdrawal sx management treated with valium detox regiment Mr Zaragoza has completed the valium regiment and is tolerated well alert oriented x 3 respiratory clear lungs bilaterally on auscultation abdomen soft no rebound tenderness skin warm and dry Pertinent Past History: time for discharge 47 minutes - Physical Exam Results Vital Signs: Vital Signs Temperature 97.4 F L 01/12/20 08:48 Pulse Rate 81 01/12/20 08:48 Respiratory Rate 18 01/12/20 08:48 Blood Pressure 147/87 01/12/20 08:48 O2 Sat by Pulse Oximetry (%) Pertinent Admission Physical Exam Findings: alcohol withdrawal Vital Signs Temperature 97.4 F L 01/12/20 08:48 Pulse Rate 81 01/12/20 08:48 Respiratory Rate 18 01/12/20 08:48 Blood Pressure 147/87 01/12/20 08:48 O2 Sat by Pulse Oximetry (%) Laboratory Last Values WBC 5.7 K/mm3 (4.0-10.0) 01/09/20 07:30 RBC 4.31 M/mm3 (4.00-5.60) 01/09/20 07:30 Hgb 12.5 GM/dL (11.7-16.9) 01/09/20 07:30 Hct 36.7 % (35.4-49) 01/09/20 07:30 MCV 85.3 fl (80-96) 01/09/20 07:30 MCH 29.1 pg (25.7-33.7) 01/09/20 07:30 MCHC 34.1 g/dl (32.0-35.9) 01/09/20 07:30 RDW 13.6 % (11.9-15.9) 01/09/20 07:30 Plt Count 263 K/MM3 (134-434) 01/09/20 07:30 MPV 8.5 fl (7.5-11.1) 01/09/20 07:30 Sodium 138 mmol/L (136-145) 01/09/20 07:30 Potassium 3.7 mmol/L (3.5-5.1) 01/09/20 07:30 Chloride 104 mmol/L (98-107) 01/09/20 07:30 Carbon Dioxide 26 mmol/L (21-32) 01/09/20 07:30 Anion Gap 7 MMOL/L (8-16) L 01/09/20 07:30 BUN 8.4 mg/dL (7-18) 01/09/20 07:30 Creatinine 0.8 mg/dL (0.55-1.3) 01/09/20 07:30 Est GFR (CKD-EPI)AfAm 117.38 01/09/20 07:30 Est GFR (CKD-EPI)NonAf 101.27 01/09/20 07:30 Random Glucose 89 mg/dL (74-106) 01/09/20 07:30 Calcium 8.6 mg/dL (8.5-10.1) 01/09/20 07:30 Total Bilirubin 0.3 mg/dL (0.2-1) 01/09/20 07:30 AST 25 U/L (15-37) 01/09/20 07:30 ALT 22 U/L (13-61) 01/09/20 07:30 Alkaline Phosphatase 79 U/L (45-117) 01/09/20 07:30 Total Protein 6.8 g/dl (6.4-8.2) 01/09/20 07:30 Albumin 3.3 g/dl (3.4-5.0) L 01/09/20 07:30 RPR Titer Nonreactive (NONREACTIVE) 01/09/20 07:30 lab noted bp elevation bp will be monitored at [facility] increased lisinopril to 10 mg po bid - Treatment Hospital Course: Detox Protocol Followed, Detoxed Safely, Responded well, Discharged Condition Good, Rehab Referral Accepted Patient has Accepted a Rehab Referral to: [facility] - Medication Discharge Medications: Ambulatory Orders Ibuprofen [Motrin -] 600 mg PO Q4H PRN #14 tablet 09/10/19 Lisinopril [Prinivil] 5 mg PO BID #60 tablet 09/10/19 - Diagnosis (1) Alcohol dependence with uncomplicated withdrawal Current Visit: Yes Status: Acute (2) Essential hypertension Current Visit: Yes Status: Chronic (3) Nicotine dependence Current Visit: Yes Status: Acute Qualifiers: Nicotine product type: cigarettes Substance use status: in withdrawal Qualified Code(s): F17.213 - Nicotine dependence, cigarettes, with withdrawal (4) Positive PPD Current Visit: Yes Status: Resolved - AMA Did Patient Leave Against Medical Advice: No CIWA Score - CIWA Score Nausea/Vomitin-No Nausea/No Vomiting Muscle Tremors: 1-None Visible, but [place] Anxiety: 0-No Anxiety, at Ease Agitation: 0-Normal Activity Paroxysmal Sweats: No Perspiration Orientation: 0-Oriented Tacttile Disturbances: 0-None Auditory Disturbances: 0-None Visual Disturbances: 0-None Headache: 0-None Present CIWA-Ar Total Score: 1
[2020-01-12] MEDS: PRENATAL VITAMINS W/ FOLIC ACID TABLET (FP) PO SCH (11:02)
[2020-01-12] MEDS: NICOTINE 14 MG/24 HOURS TOPICAL PATCH TD SCH (11:03)
[2020-01-12] MEDS: METHYL SALICYLATE/MENTHOL OINT 30 GM TUBE TP SCH (11:03)
[2020-01-12] MEDS ORDERED: LISINOPRIL 10 MG TABLET (FP) PO ONE (11:35)
[2020-01-12] MEDS: LISINOPRIL 5 MG TABLET (FP) PO SCH (11:49)
[2020-01-12] MEDS ORDERED: LISINOPRIL 10 MG TABLET (FP) PO SCH (22:00)
== END 2020-01-12 11:52 | disposition other institution (70) | DRG 775 ==
LOC: YASAS 13:47 → Y3N 18:51
PROVIDERS: ADMIT Allergy & Immunology; ATTEND Allergy & Immunology
PROC: HZ2ZZZZ Detoxification Services for Substance Abuse Treatment (ICD-10-PCS; principal; 2020-01-08)
DX: F10.230 Alcohol dependence with withdrawal, uncomplicated (principal); F17.210 Nicotine dependence, cigarettes, uncomplicated; F32.9 Major depressive disorder, single episode, unspecified; I10 Essential (primary) hypertension; R55 Syncope and collapse; R76.11 Nonspecific reaction to tuberculin skin test without active tuberculosis; Z88.0 Allergy status to penicillin; Z91.018 Allergy to other foods
CPT/HCPCS: 36415; 71046-TC-FY; 80053; 85027; 86593; Q0162

== ENCOUNTER 2020-11-26 12:02 | Inpatient (IN) | payer OTHER ==
[2020-11-26 14:45] VITALS: BMI 22.9
[2020-11-26] MEDS ORDERED: MAGNESIUM CITRATE 300 ML BOTTLE PO PRN (15:47)
[2020-11-26] MEDS ORDERED: MAGNESIUM HYDROX 2400MG/30ML ORAL SUSPENSION 30 ML CUP PO PRN (15:47)
[2020-11-26] MEDS ORDERED: ACETAMINOPHEN 325 MG TABLET (FP) PO PRN ×2 (15:47)
[2020-11-26] MEDS ORDERED: BISMUTH SUBSALICYLATE 524 MG/30 ML UD PO PRN (15:47)
[2020-11-26] MEDS ORDERED: IBUPROFEN 400 MG TABLET (FP) PO PRN (15:47)
[2020-11-26] MEDS ORDERED: MAG HYDROX/AL HYDROX/SIMETH 30 ML UNIT-DOSE CUP PO PRN (15:47)
[2020-11-26] MEDS ORDERED: chlordiazePOXIDE HCL 25 MG CAPSULE PO PRN (15:47)
[2020-11-26] MEDS ORDERED: MENTHOL/PHENOL 1 EACH UD MM PRN (15:47)
[2020-11-26] MEDS ORDERED: NICOTINE POLACRILEX 2 MG GUM BUC PRN (15:47)
[2020-11-26] MEDS ORDERED: METHOCARBAMOL 500 MG TABLET PO PRN (15:47)
[2020-11-26] MEDS ORDERED: ONDANSETRON *ODT* 4 MG TABLET SL PRN (15:47)
[2020-11-26] MEDS: chlordiazePOXIDE HCL 25 MG CAPSULE PO SCH ×2 (18:29→22:55)
[2020-11-26] MEDS: hydrOXYzine PAMOATE 25 MG CAPSULE (FP) PO SCH ×2 (18:30→22:55)
[2020-11-26] MEDS: MELATONIN 5 MG TABLETS PO SCH (22:55)
[2020-11-26] MEDS: THIAMINE HCL 100 MG TABLET (FP) PO SCH (22:55)
[2020-11-26] MEDS: LISINOPRIL 5 MG TABLET PO SCH (22:55)
[2020-11-27] MEDS: chlordiazePOXIDE HCL 25 MG CAPSULE PO SCH ×4 (07:52→22:34)
[2020-11-27] MEDS: hydrOXYzine PAMOATE 25 MG CAPSULE (FP) PO SCH ×5 (07:52→22:34)
[2020-11-27] MEDS: LISINOPRIL 5 MG TABLET PO SCH ×2 (10:31→22:33)
[2020-11-27] MEDS: PRENATAL VITAMINS W/ FOLIC ACID TABLET (FP) PO SCH (10:31)
[2020-11-27 11:56] LABS: HEMATOCRIT 41.9 % (35.4-49); HEMOGLOBIN 14.4 GM/dL (11.7-16.9); MCH 31.4 pg (25.7-33.7); MCHC 34.5 g/dl (32.0-35.9); MEAN CELL VOLUME 91.3 fl (80-96); MEAN PLT VOLUME 8.4 fl (7.5-11.1); PLATELET COUNT 268 K/MM3 (134-434); RBC 4.59 M/mm3 (4.00-5.60); RDW 14.6 % (11.9-15.9); WHITE BLOOD COUNT 5.4 K/mm3 (4.0-10.0)
[2020-11-27 12:02] LABS: POTASSIUM 3.4 mmol/L (3.5-5.1)
[2020-11-27 12:08] LABS: CALCIUM 8.8 mg/dL (8.5-10.1)
[2020-11-27 12:09] LABS: ALBUMIN 3.9 g/dl (3.4-5.0); BLOOD UREA NITROGEN 9.3 mg/dL (7-18)
[2020-11-27 12:12] LABS: CREATININE 0.7 mg/dL (0.55-1.3); TOT PROT 7.6 g/dl (6.4-8.2)
[2020-11-27 12:13] LABS: BILIRUBIN,TOTAL 0.7 mg/dL (0.2-1)
[2020-11-27] MEDS: MELATONIN 5 MG TABLETS PO SCH (22:33)
[2020-11-27] MEDS: THIAMINE HCL 100 MG TABLET (FP) PO SCH (22:34)
[2020-11-28] MEDS: chlordiazePOXIDE HCL 25 MG CAPSULE PO SCH ×4 (07:50→22:34)
[2020-11-28] MEDS: hydrOXYzine PAMOATE 25 MG CAPSULE (FP) PO SCH ×5 (07:50→22:35)
[2020-11-28] MEDS: LISINOPRIL 5 MG TABLET PO SCH ×2 (10:42→22:34)
[2020-11-28] MEDS: PRENATAL VITAMINS W/ FOLIC ACID TABLET (FP) PO SCH (10:42)
[2020-11-28] MEDS ORDERED: POTASSIUM CHLORIDE TABS 20 MEQ TABLET.ER (FP) PO ONE (14:15)
[2020-11-28] MEDS: THIAMINE HCL 100 MG TABLET (FP) PO SCH (22:34)
[2020-11-28] MEDS: MELATONIN 5 MG TABLETS PO SCH (22:35)
[2020-11-29] MEDS ORDERED: chlordiazePOXIDE HCL 10 MG CAPSULE PO PRN
[2020-11-29] MEDS: chlordiazePOXIDE HCL 10 MG CAPSULE PO SCH ×4 (06:50→22:19)
[2020-11-29] MEDS: hydrOXYzine PAMOATE 25 MG CAPSULE (FP) PO SCH ×5 (06:50→22:18)
[2020-11-29] MEDS: LISINOPRIL 5 MG TABLET PO SCH ×2 (10:51→22:18)
[2020-11-29] MEDS: PRENATAL VITAMINS W/ FOLIC ACID TABLET (FP) PO SCH (10:51)
[2020-11-29] MEDS: MELATONIN 5 MG TABLETS PO SCH (22:18)
[2020-11-29] MEDS: THIAMINE HCL 100 MG TABLET (FP) PO SCH (22:18)
[2020-11-30] MEDS: chlordiazePOXIDE HCL 10 MG CAPSULE PO SCH ×2 (06:15→17:35)
[2020-11-30] MEDS: hydrOXYzine PAMOATE 25 MG CAPSULE (FP) PO SCH ×5 (06:16→22:35)
[2020-11-30] MEDS: PRENATAL VITAMINS W/ FOLIC ACID TABLET (FP) PO SCH (10:29)
[2020-11-30] MEDS: LISINOPRIL 5 MG TABLET PO SCH ×2 (10:29→22:35)
[2020-11-30] MEDS: THIAMINE HCL 100 MG TABLET (FP) PO SCH (22:35)
[2020-11-30] MEDS: MELATONIN 5 MG TABLETS PO SCH (22:35)
[2020-12-01] MEDS ORDERED: chlordiazePOXIDE HCL 10 MG CAPSULE PO ONE (05:00)
[2020-12-01] MEDS: hydrOXYzine PAMOATE 25 MG CAPSULE (FP) PO SCH (06:17)
[2020-12-01 08:51] VITALS: BP 126/73; PULSE 64; TEMP 97.3
== END 2020-12-01 09:50 | disposition home or self-care (01) | DRG 775 ==
LOC: YASAS 12:02 → Y3N 15:27
PROVIDERS: ADMIT Allergy & Immunology; ATTEND Allergy & Immunology
PROC: HZ2ZZZZ Detoxification Services for Substance Abuse Treatment (ICD-10-PCS; principal; 2020-11-26)
DX: F10.230 Alcohol dependence with withdrawal, uncomplicated (principal); F12.10 Cannabis abuse, uncomplicated; F17.210 Nicotine dependence, cigarettes, uncomplicated; F19.282 Other psychoactive substance dependence with psychoactive substance-induced sleep disorder; F19.24 Other psychoactive substance dependence with psychoactive substance-induced mood disorder; F32.9 Major depressive disorder, single episode, unspecified; F41.9 Anxiety disorder, unspecified; E87.6 Hypokalemia; I10 Essential (primary) hypertension; R76.11 Nonspecific reaction to tuberculin skin test without active tuberculosis; R63.4 Abnormal weight loss; Z68.22 Body mass index [BMI] 22.0-22.9, adult; Z98.890 Other specified postprocedural states; Z88.0 Allergy status to penicillin; Z91.018 Allergy to other foods; Z59.0 Homelessness
CPT/HCPCS: 36415; 80053; 85027; 86780; C9803; U0003

== ENCOUNTER 2022-03-20 10:51 | Inpatient (IN) | payer OTHER ==
[2022-03-20] MEDS ORDERED: LOPERAMIDE HCL 2 MG CAPSULE PO PRN (11:37)
[2022-03-20] MEDS ORDERED: MAGNESIUM HYDROX 2400MG/30ML ORAL SUSPENSION 30 ML CUP PO PRN (11:37)
[2022-03-20] MEDS ORDERED: DICYCLOMINE HCL 10 MG CAPSULE PO PRN (11:37)
[2022-03-20] MEDS ORDERED: chlordiazePOXIDE HCL 25 MG CAPSULE PO PRN (11:37)
[2022-03-20] MEDS ORDERED: MAGNESIUM CITRATE 300 ML BOTTLE PO PRN (11:37)
[2022-03-20] MEDS ORDERED: BISMUTH SUBSALICYLATE 262 MG/15 ML BTL PO PRN (11:37)
[2022-03-20] MEDS ORDERED: NICOTINE 10 MG CARTRIDGE (INHALER) IH PRN (11:37)
[2022-03-20] MEDS ORDERED: ACETAMINOPHEN 325 MG TABLET (FP) PO PRN ×2 (11:37)
[2022-03-20] MEDS ORDERED: MAG HYDROX/AL HYDROX/SIMETH 30 ML UNIT-DOSE CUP PO PRN (11:37)
[2022-03-20] MEDS ORDERED: ONDANSETRON *ODT* 4 MG TABLET SL PRN (11:37)
[2022-03-20] MEDS ORDERED: BENZOCAINE/MENTHOL (CHLORASEPTIC ) LOZENGE MM PRN (11:37)
[2022-03-20] MEDS ORDERED: IBUPROFEN 400 MG TABLET (FP) PO PRN (11:37)
[2022-03-20 12:12] VITALS: BMI 23.0
[2022-03-20] MEDS ORDERED: cloNIDine HCL 0.1 MG TABLET ONE (12:32)
[2022-03-20] MEDS ORDERED: chlordiazePOXIDE HCL 25 MG CAPSULE ONE (12:33)
[2022-03-20] MEDS ORDERED: cloNIDine HCL 0.1 MG TABLET PO ONE (12:36)
[2022-03-20] MEDS: NICOTINE 14 MG/24 HOURS TOPICAL PATCH TD SCH (13:04)
[2022-03-20] MEDS: hydrOXYzine PAMOATE 25 MG CAPSULE (FP) PO SCH ×3 (13:04→22:55)
[2022-03-20] MEDS: METHOCARBAMOL 500 MG TABLET PO PRN ×2 (13:04→22:55)
[2022-03-20] MEDS: PRENATAL VITAMINS W/ FOLIC ACID TABLET (FP) PO SCH (13:04)
[2022-03-20 15:57] LABS: HEMATOCRIT 38.5 % (35.4-49); HEMOGLOBIN 13.3 GM/dL (11.7-16.9); MCH 31.3 pg (25.7-33.7); MCHC 34.5 g/dl (32.0-35.9); MEAN CELL VOLUME 90.9 fl (80-96); MEAN PLT VOLUME 8.1 fl (7.5-11.1); PLATELET COUNT 223 10^3/uL (134-434); RBC 4.23 M/mm3 (4.00-5.60); RDW 13.2 % (11.9-15.9); WHITE BLOOD COUNT 5.8 K/mm3 (4.0-10.0)
[2022-03-20 16:07] LABS: ALBUMIN 3.5 g/dl (3.4-5.0); BLOOD UREA NITROGEN 11.2 mg/dL (7-18)
[2022-03-20 16:08] LABS: CALCIUM 8.7 mg/dL (8.5-10.1)
[2022-03-20 16:10] LABS: CREATININE 0.8 mg/dL (0.55-1.3)
[2022-03-20 16:11] LABS: TOT PROT 6.8 g/dl (6.4-8.2)
[2022-03-20 16:12] LABS: BILIRUBIN,TOTAL 0.4 mg/dL (0.2-1)
[2022-03-20] MEDS: chlordiazePOXIDE HCL 25 MG CAPSULE PO SCH ×2 (18:23→22:55)
[2022-03-20] MEDS: MELATONIN 5 MG TABLETS PO SCH (22:55)
[2022-03-20] MEDS: LISINOPRIL 5 MG TABLET PO SCH (22:55)
[2022-03-20] MEDS: THIAMINE HCL 100 MG TABLET (FP) PO SCH (22:55)
[2022-03-21] MEDS: hydrOXYzine PAMOATE 25 MG CAPSULE (FP) PO SCH ×5 (05:25→23:16)
[2022-03-21] MEDS: chlordiazePOXIDE HCL 25 MG CAPSULE PO SCH ×4 (05:25→23:16)
[2022-03-21] MEDS: PRENATAL VITAMINS W/ FOLIC ACID TABLET (FP) PO SCH (10:30)
[2022-03-21] MEDS: LISINOPRIL 5 MG TABLET PO SCH ×2 (10:30→23:16)
[2022-03-21] MEDS: NICOTINE 14 MG/24 HOURS TOPICAL PATCH TD SCH (11:04)
[2022-03-21] MEDS: THIAMINE HCL 100 MG TABLET (FP) PO SCH (23:16)
[2022-03-21] MEDS: MELATONIN 5 MG TABLETS PO SCH (23:17)
[2022-03-22] MEDS: hydrOXYzine PAMOATE 25 MG CAPSULE (FP) PO SCH ×5 (05:36→22:13)
[2022-03-22] MEDS: chlordiazePOXIDE HCL 25 MG CAPSULE PO SCH ×4 (05:37→22:12)
[2022-03-22] MEDS: PRENATAL VITAMINS W/ FOLIC ACID TABLET (FP) PO SCH (10:43)
[2022-03-22] MEDS: LISINOPRIL 5 MG TABLET PO SCH ×2 (10:44→22:13)
[2022-03-22] MEDS: NICOTINE 14 MG/24 HOURS TOPICAL PATCH TD SCH (10:44)
[2022-03-22] MEDS: METHOCARBAMOL 500 MG TABLET PO PRN (10:44)
[2022-03-22 16:08] LABS: SARS-CoV-2 NAA Not Detected (Not Detected)
[2022-03-22] MEDS ORDERED: guaiFENesin 200 MG/10 ML 10 ML UNIT-DOSE CUPS PO PRN (20:22)
[2022-03-22] MEDS: MELATONIN 5 MG TABLETS PO SCH (22:13)
[2022-03-22] MEDS: THIAMINE HCL 100 MG TABLET (FP) PO SCH (22:13)
[2022-03-23] MEDS ORDERED: chlordiazePOXIDE HCL 10 MG CAPSULE PO PRN
[2022-03-23] MEDS: hydrOXYzine PAMOATE 25 MG CAPSULE (FP) PO SCH ×5 (05:06→23:22)
[2022-03-23] MEDS: chlordiazePOXIDE HCL 10 MG CAPSULE PO SCH ×3 (05:06→18:05)
[2022-03-23] MEDS: PRENATAL VITAMINS W/ FOLIC ACID TABLET (FP) PO SCH (10:33)
[2022-03-23] MEDS: METHOCARBAMOL 500 MG TABLET PO PRN (10:33)
[2022-03-23] MEDS: LISINOPRIL 5 MG TABLET PO SCH ×2 (10:33→23:19)
[2022-03-23] MEDS: NICOTINE 14 MG/24 HOURS TOPICAL PATCH TD SCH (10:35)
[2022-03-23] MEDS: MELATONIN 5 MG TABLETS PO SCH (23:22)
[2022-03-23] MEDS: THIAMINE HCL 100 MG TABLET (FP) PO SCH (23:23)
[2022-03-24] MEDS ORDERED: chlordiazePOXIDE HCL 10 MG CAPSULE PO SCH (05:00)
[2022-03-24] MEDS: hydrOXYzine PAMOATE 25 MG CAPSULE (FP) PO SCH (05:01)
[2022-03-24 05:57] VITALS: BP 142/85; PULSE 83; TEMP 97.5
[2022-03-25] MEDS ORDERED: chlordiazePOXIDE HCL 10 MG CAPSULE PO ONE (05:00)
== END 2022-03-24 06:34 | disposition home or self-care (01) | DRG 775 ==
LOC: YASAS 10:51 → Y6N 12:17
PROVIDERS: ADMIT Allergy & Immunology; ATTEND Surgery
PROC: HZ2ZZZZ Detoxification Services for Substance Abuse Treatment (ICD-10-PCS; principal; 2022-03-20)
DX: F10.230 Alcohol dependence with withdrawal, uncomplicated (principal); F12.10 Cannabis abuse, uncomplicated; F17.210 Nicotine dependence, cigarettes, uncomplicated; F19.282 Other psychoactive substance dependence with psychoactive substance-induced sleep disorder; F19.24 Other psychoactive substance dependence with psychoactive substance-induced mood disorder; F41.9 Anxiety disorder, unspecified; F32.A Depression, unspecified; I10 Essential (primary) hypertension; R63.4 Abnormal weight loss; Z68.23 Body mass index [BMI] 23.0-23.9, adult; Z86.11 Personal history of tuberculosis; Z80.0 Family history of malignant neoplasm of digestive organs; Z91.018 Allergy to other foods
CPT/HCPCS: 36415; 71046-TC-FY; 80053; 82962; 85027; 86780; C9803-CS; J0735; U0003; U0005

== ENCOUNTER 2022-08-20 09:33 | Inpatient (IN) | payer OTHER ==
[2022-08-20 10:41] VITALS: BMI 21.7
[2022-08-20] MEDS ORDERED: MAGNESIUM HYDROX 2400MG/30ML ORAL SUSPENSION 30 ML CUP PO PRN (12:15)
[2022-08-20] MEDS ORDERED: IBUPROFEN 400 MG TABLET (FP) PO PRN (12:15)
[2022-08-20] MEDS ORDERED: chlordiazePOXIDE HCL 25 MG CAPSULE PO PRN (12:15)
[2022-08-20] MEDS ORDERED: MAGNESIUM CITRATE 300 ML BOTTLE PO PRN (12:15)
[2022-08-20] MEDS ORDERED: IBUPROFEN 600 MG TABLET (FP) PO PRN (12:15)
[2022-08-20] MEDS ORDERED: NALOXONE HCL (KLOXXADO) 8 MG SPRAY NS PRN (12:15)
[2022-08-20] MEDS ORDERED: ACETAMINOPHEN 325 MG TABLET (FP) PO PRN ×2 (12:15)
[2022-08-20] MEDS ORDERED: LOPERAMIDE HCL 2 MG CAPSULE PO PRN (12:15)
[2022-08-20] MEDS ORDERED: BENZOCAINE/MENTHOL (CHLORASEPTIC ) LOZENGE MM PRN (12:15)
[2022-08-20] MEDS ORDERED: DICYCLOMINE HCL 10 MG CAPSULE PO PRN (12:15)
[2022-08-20] MEDS ORDERED: ONDANSETRON *ODT* 4 MG TABLET SL PRN (12:15)
[2022-08-20] MEDS ORDERED: MAG HYDROX/AL HYDROX/SIMETH 30 ML UNIT-DOSE CUP PO PRN (12:15)
[2022-08-20] MEDS ORDERED: LISINOPRIL 10 MG TABLET ONE (14:35)
[2022-08-20] MEDS: LISINOPRIL 5 MG TABLET PO SCH ×2 (14:39→22:38)
[2022-08-20] MEDS: chlordiazePOXIDE HCL 25 MG CAPSULE PO SCH ×2 (18:26→22:37)
[2022-08-20] MEDS: BISMUTH SUBSALICYLATE 524 MG/30 ML PO PRN ×2 (18:28→22:40)
[2022-08-20] MEDS: THIAMINE HCL 100 MG TABLET (FP) PO SCH (22:38)
[2022-08-20] MEDS: MELATONIN 5 MG TABLETS PO SCH (22:38)
[2022-08-21] MEDS: chlordiazePOXIDE HCL 25 MG CAPSULE PO SCH ×4 (05:43→22:49)
[2022-08-21] MEDS: NICOTINE 10 MG CARTRIDGE (INHALER) IH PRN (08:24)
[2022-08-21] MEDS: METHOCARBAMOL 500 MG TABLET PO PRN (10:05)
[2022-08-21] MEDS: LISINOPRIL 5 MG TABLET PO SCH ×2 (10:05→22:48)
[2022-08-21] MEDS: hydrOXYzine PAMOATE 25 MG CAPSULE (FP) PO PRN (10:05)
[2022-08-21] MEDS: PRENATAL VITAMINS W/ FOLIC ACID TABLET (FP) PO SCH (10:05)
[2022-08-21] MEDS: NICOTINE 21 MG/24 HOURS TOPICAL PATCH TD SCH (10:06)
[2022-08-21 11:12] LABS: HEMATOCRIT 39.3 % (35.4-49); HEMOGLOBIN 13.6 GM/dL (11.7-16.9); MCH 31.6 pg (25.7-33.7); MCHC 34.8 g/dl (32.0-35.9); MEAN CELL VOLUME 90.9 fl (80-96); MEAN PLT VOLUME 8.1 fl (7.5-11.1); PLATELET COUNT 231 10^3/uL (134-434); RBC 4.32 M/mm3 (4.00-5.60); RDW 14.2 % (11.9-15.9); WHITE BLOOD COUNT 5.8 K/mm3 (4.0-10.0)
[2022-08-21 11:31] LABS: CALCIUM 8.9 mg/dL (8.5-10.1)
[2022-08-21 11:32] LABS: ALBUMIN 3.7 g/dl (3.4-5.0); BLOOD UREA NITROGEN 12.9 mg/dL (7-18)
[2022-08-21 11:35] LABS: CREATININE 0.8 mg/dL (0.55-1.3)
[2022-08-21 11:37] LABS: BILIRUBIN,TOTAL 0.5 mg/dL (0.2-1); TOT PROT 7.1 g/dl (6.4-8.2)
[2022-08-21] MEDS: THIAMINE HCL 100 MG TABLET (FP) PO SCH (22:48)
[2022-08-21] MEDS: MELATONIN 5 MG TABLETS PO SCH (22:49)
[2022-08-22] MEDS: chlordiazePOXIDE HCL 25 MG CAPSULE PO SCH ×4 (05:45→22:34)
[2022-08-22] MEDS: LISINOPRIL 5 MG TABLET PO SCH ×2 (10:49→22:34)
[2022-08-22] MEDS: NICOTINE 21 MG/24 HOURS TOPICAL PATCH TD SCH (10:49)
[2022-08-22] MEDS: PRENATAL VITAMINS W/ FOLIC ACID TABLET (FP) PO SCH (10:49)
[2022-08-22] MEDS: hydrOXYzine PAMOATE 25 MG CAPSULE (FP) PO PRN (10:50)
[2022-08-22] MEDS: METHOCARBAMOL 500 MG TABLET PO PRN (10:50)
[2022-08-22] MEDS: NICOTINE 10 MG CARTRIDGE (INHALER) IH PRN (17:20)
[2022-08-22] MEDS: THIAMINE HCL 100 MG TABLET (FP) PO SCH (22:33)
[2022-08-22] MEDS: MELATONIN 5 MG TABLETS PO SCH (22:34)
[2022-08-23] MEDS ORDERED: chlordiazePOXIDE HCL 10 MG CAPSULE PO PRN
[2022-08-23] MEDS: chlordiazePOXIDE HCL 10 MG CAPSULE PO SCH ×4 (05:55→22:44)
[2022-08-23] MEDS: NICOTINE 21 MG/24 HOURS TOPICAL PATCH TD SCH (10:14)
[2022-08-23] MEDS: METHOCARBAMOL 500 MG TABLET PO PRN (10:14)
[2022-08-23] MEDS: hydrOXYzine PAMOATE 25 MG CAPSULE (FP) PO PRN (10:14)
[2022-08-23] MEDS: LISINOPRIL 5 MG TABLET PO SCH ×2 (10:14→22:42)
[2022-08-23] MEDS: PRENATAL VITAMINS W/ FOLIC ACID TABLET (FP) PO SCH (10:14)
[2022-08-23] MEDS: NICOTINE 10 MG CARTRIDGE (INHALER) IH PRN (10:17)
[2022-08-23 20:59] VITALS: RESP 18
[2022-08-23] MEDS: THIAMINE HCL 100 MG TABLET (FP) PO SCH (22:43)
[2022-08-23] MEDS: MELATONIN 5 MG TABLETS PO SCH (22:43)
[2022-08-24] MEDS ORDERED: chlordiazePOXIDE HCL 10 MG CAPSULE PO SCH (05:00)
[2022-08-24 07:43] VITALS: BP 141/93; PULSE 64; TEMP 97.5
[2022-08-25] MEDS ORDERED: chlordiazePOXIDE HCL 10 MG CAPSULE PO ONE (05:00)
== END 2022-08-24 08:49 | disposition home or self-care (01) | DRG 775 ==
LOC: YASAS 09:33 → Y6N 13:51
PROVIDERS: ADMIT Allergy & Immunology; ATTEND Surgery
PROC: HZ2ZZZZ Detoxification Services for Substance Abuse Treatment (ICD-10-PCS; principal; 2022-08-20)
DX: F10.230 Alcohol dependence with withdrawal, uncomplicated (principal); F12.20 Cannabis dependence, uncomplicated; F17.210 Nicotine dependence, cigarettes, uncomplicated; F19.282 Other psychoactive substance dependence with psychoactive substance-induced sleep disorder; F19.280 Other psychoactive substance dependence with psychoactive substance-induced anxiety disorder; F19.24 Other psychoactive substance dependence with psychoactive substance-induced mood disorder; F32.A Depression, unspecified; F41.9 Anxiety disorder, unspecified; G62.9 Polyneuropathy, unspecified; I10 Essential (primary) hypertension; R76.11 Nonspecific reaction to tuberculin skin test without active tuberculosis; R63.4 Abnormal weight loss; Z68.21 Body mass index [BMI] 21.0-21.9, adult; Z88.0 Allergy status to penicillin; Z91.018 Allergy to other foods
CPT/HCPCS: 36415; 80053; 85027; 86780; 87811; C9803-CS; U0003; U0005

== ENCOUNTER 2022-10-02 08:39 | Inpatient (IN) | payer OTHER ==
[2022-10-02 09:33] VITALS: BMI 23.0
[2022-10-02] MEDS ORDERED: BENZOCAINE/MENTHOL (CHLORASEPTIC ) LOZENGE MM PRN (11:26)
[2022-10-02] MEDS ORDERED: LOPERAMIDE HCL 2 MG CAPSULE PO PRN (11:26)
[2022-10-02] MEDS ORDERED: IBUPROFEN 600 MG TABLET (FP) PO PRN (11:26)
[2022-10-02] MEDS ORDERED: MAGNESIUM HYDROX 2400MG/30ML ORAL SUSPENSION 30 ML CUP PO PRN (11:26)
[2022-10-02] MEDS ORDERED: MAG HYDROX/AL HYDROX/SIMETH 30 ML UNIT-DOSE CUP PO PRN (11:26)
[2022-10-02] MEDS ORDERED: POLYETHYLENE GLYCOL (HEALTHYLAX) 3350 17 GM PACKET PO PRN (11:26)
[2022-10-02] MEDS ORDERED: DICYCLOMINE HCL 10 MG CAPSULE PO PRN (11:26)
[2022-10-02] MEDS ORDERED: NICOTINE POLACRILEX 2 MG GUM BUC PRN (11:26)
[2022-10-02] MEDS ORDERED: IBUPROFEN 400 MG TABLET (FP) PO PRN (11:26)
[2022-10-02] MEDS ORDERED: BISMUTH SUBSALICYLATE 262 MG/15 ML BTL PO PRN (11:26)
[2022-10-02] MEDS ORDERED: NALOXONE HCL (KLOXXADO) 8 MG SPRAY NS PRN (11:26)
[2022-10-02] MEDS ORDERED: NICOTINE 10 MG CARTRIDGE (INHALER) IH PRN (11:26)
[2022-10-02] MEDS ORDERED: ACETAMINOPHEN 325 MG TABLET (FP) PO PRN ×2 (11:26)
[2022-10-02] MEDS ORDERED: ONDANSETRON *ODT* 4 MG TABLET ONE (12:28)
[2022-10-02] MEDS: ONDANSETRON *ODT* 4 MG TABLET SL PRN ×2 (12:30→22:30)
[2022-10-02] MEDS: LISINOPRIL 5 MG TABLET PO SCH ×2 (12:50→22:36)
[2022-10-02] MEDS: ALBUTEROL SO4 HFA INHALER IH PRN (13:12)
[2022-10-02] MEDS: PRENATAL VITAMINS W/ FOLIC ACID TABLET (FP) PO SCH (14:00)
[2022-10-02 14:10] LABS: HEMATOCRIT 41.4 % (35.4-49); HEMOGLOBIN 14.1 GM/dL (11.7-16.9); MCH 30.9 pg (25.7-33.7); MCHC 34.1 g/dl (32.0-35.9); MEAN CELL VOLUME 90.6 fl (80-96); MEAN PLT VOLUME 8.4 fl (7.5-11.1); PLATELET COUNT 281 10^3/uL (134-434); RBC 4.56 M/mm3 (4.00-5.60); RDW 13.3 % (11.9-15.9); WHITE BLOOD COUNT 5.5 K/mm3 (4.0-10.0)
[2022-10-02 14:18] LABS: ALBUMIN 3.6 g/dl (3.4-5.0)
[2022-10-02 14:19] LABS: BLOOD UREA NITROGEN 9.8 mg/dL (7-18)
[2022-10-02 14:22] LABS: CREATININE 0.9 mg/dL (0.55-1.3)
[2022-10-02 14:23] LABS: BILIRUBIN,TOTAL 0.4 mg/dL (0.2-1); TOT PROT 7.4 g/dl (6.4-8.2)
[2022-10-02] MEDS: DOXYCYCLINE HYCLATE 100 MG TABLET PO SCH (17:37)
[2022-10-02 19:51] LABS: HIV INTERPRETATION NEGATIVE (NEGATIVE)
[2022-10-02] MEDS ORDERED: MELATONIN 5 MG TABLETS PO SCH (22:00)
[2022-10-02] MEDS ORDERED: chlordiazePOXIDE HCL 25 MG CAPSULE PO PRN (22:28)
[2022-10-02] MEDS: METHOCARBAMOL 500 MG TABLET PO PRN (22:35)
[2022-10-02] MEDS: hydrOXYzine PAMOATE 25 MG CAPSULE (FP) PO PRN (22:35)
[2022-10-02] MEDS: THIAMINE HCL 100 MG TABLET (FP) PO SCH (22:36)
[2022-10-02] MEDS: chlordiazePOXIDE HCL 25 MG CAPSULE PO SCH (22:36)
[2022-10-02] MEDS: SUVOREXANT 10 MG TABLET PO PRN (22:36)
[2022-10-03] MEDS: chlordiazePOXIDE HCL 25 MG CAPSULE PO SCH ×4 (05:35→22:24)
[2022-10-03] MEDS: PRENATAL VITAMINS W/ FOLIC ACID TABLET (FP) PO SCH (10:02)
[2022-10-03] MEDS: LISINOPRIL 5 MG TABLET PO SCH ×2 (10:02→22:23)
[2022-10-03] MEDS: DOXYCYCLINE HYCLATE 100 MG TABLET PO SCH ×2 (10:02→17:35)
[2022-10-03] MEDS: ALBUTEROL SO4 HFA INHALER IH PRN (17:35)
[2022-10-03] MEDS: SUVOREXANT 10 MG TABLET PO PRN (22:23)
[2022-10-03] MEDS: METHOCARBAMOL 500 MG TABLET PO PRN (22:23)
[2022-10-03] MEDS: THIAMINE HCL 100 MG TABLET (FP) PO SCH (22:23)
[2022-10-04] MEDS: chlordiazePOXIDE HCL 25 MG CAPSULE PO SCH ×4 (05:47→22:25)
[2022-10-04] MEDS: ALBUTEROL SO4 HFA INHALER IH PRN (09:49)
[2022-10-04] MEDS: DOXYCYCLINE HYCLATE 100 MG TABLET PO SCH ×2 (10:16→17:29)
[2022-10-04] MEDS: LISINOPRIL 5 MG TABLET PO SCH ×2 (10:16→22:25)
[2022-10-04] MEDS: PRENATAL VITAMINS W/ FOLIC ACID TABLET (FP) PO SCH (10:17)
[2022-10-04] MEDS: guaiFENesin 600 MG TABLET.ER (FP) PO SCH ×2 (12:20→22:25)
[2022-10-04] MEDS: SUVOREXANT 10 MG TABLET PO PRN (22:25)
[2022-10-04] MEDS: THIAMINE HCL 100 MG TABLET (FP) PO SCH (22:25)
[2022-10-05] MEDS ORDERED: chlordiazePOXIDE HCL 10 MG CAPSULE PO PRN
[2022-10-05] MEDS: chlordiazePOXIDE HCL 10 MG CAPSULE PO SCH ×4 (05:44→22:12)
[2022-10-05] MEDS: guaiFENesin 600 MG TABLET.ER (FP) PO SCH ×2 (10:36→22:11)
[2022-10-05] MEDS: DOXYCYCLINE HYCLATE 100 MG TABLET PO SCH ×2 (10:36→18:26)
[2022-10-05] MEDS: LISINOPRIL 5 MG TABLET PO SCH ×2 (10:37→22:12)
[2022-10-05] MEDS: PRENATAL VITAMINS W/ FOLIC ACID TABLET (FP) PO SCH (10:37)
[2022-10-05] MEDS: METHOCARBAMOL 500 MG TABLET PO PRN (22:11)
[2022-10-05] MEDS: THIAMINE HCL 100 MG TABLET (FP) PO SCH (22:11)
[2022-10-06] MEDS: chlordiazePOXIDE HCL 10 MG CAPSULE PO SCH ×2 (05:24→17:45)
[2022-10-06] MEDS: hydrOXYzine PAMOATE 25 MG CAPSULE (FP) PO PRN ×2 (05:24→22:22)
[2022-10-06] MEDS: LISINOPRIL 5 MG TABLET PO SCH ×2 (10:22→22:23)
[2022-10-06] MEDS: guaiFENesin 600 MG TABLET.ER (FP) PO SCH ×2 (10:22→22:22)
[2022-10-06] MEDS: DOXYCYCLINE HYCLATE 100 MG TABLET PO SCH ×2 (10:22→17:47)
[2022-10-06] MEDS: PRENATAL VITAMINS W/ FOLIC ACID TABLET (FP) PO SCH (10:22)
[2022-10-06] MEDS: METHOCARBAMOL 500 MG TABLET PO PRN (22:22)
[2022-10-06] MEDS: THIAMINE HCL 100 MG TABLET (FP) PO SCH (22:23)
[2022-10-07] MEDS ORDERED: chlordiazePOXIDE HCL 10 MG CAPSULE PO ONE (05:00)
[2022-10-07 09:41] VITALS: BP 128/97; PULSE 76; RESP 16; TEMP 98.4
[2022-10-07] MEDS: PRENATAL VITAMINS W/ FOLIC ACID TABLET (FP) PO SCH (10:09)
[2022-10-07] MEDS: LISINOPRIL 5 MG TABLET PO SCH (10:09)
[2022-10-07] MEDS: DOXYCYCLINE HYCLATE 100 MG TABLET PO SCH (10:09)
[2022-10-07] MEDS: guaiFENesin 600 MG TABLET.ER (FP) PO SCH (10:09)
== END 2022-10-07 12:59 | disposition other institution (70) | DRG 775 ==
LOC: YASAS 08:39 → Y3N 11:48
PROVIDERS: ADMIT Allergy & Immunology; ATTEND Surgery
PROC: HZ2ZZZZ Detoxification Services for Substance Abuse Treatment (ICD-10-PCS; principal; 2022-10-02)
DX: F10.230 Alcohol dependence with withdrawal, uncomplicated (principal); F12.20 Cannabis dependence, uncomplicated; F17.210 Nicotine dependence, cigarettes, uncomplicated; F19.282 Other psychoactive substance dependence with psychoactive substance-induced sleep disorder; F32.A Depression, unspecified; I10 Essential (primary) hypertension; J40 Bronchitis, not specified as acute or chronic; R05.9 Cough, unspecified; M54.50 Low back pain, unspecified; G89.29 Other chronic pain; Z86.11 Personal history of tuberculosis; Z91.013 Allergy to seafood; Z88.0 Allergy status to penicillin
CPT/HCPCS: 36415; 80053; 85027; 86780; 87389; C9803-CS; Q0162; U0003; U0005

== ENCOUNTER 2022-10-07 13:06 | Inpatient (IN) | payer OTHER ==
[2022-10-07] MEDS ORDERED: P-EPHED 60MG/TRIPROLIDI 2.5MG TABLET PO PRN (14:14)
[2022-10-07] MEDS ORDERED: POLYETHYLENE GLYCOL (HEALTHYLAX) 3350 17 GM PACKET PO PRN (14:14)
[2022-10-07] MEDS ORDERED: IBUPROFEN 400 MG TABLET (FP) PO PRN (14:14)
[2022-10-07] MEDS ORDERED: guaiFENesin 200 MG/10 ML 10 ML UNIT-DOSE CUPS PO PRN (14:14)
[2022-10-07] MEDS ORDERED: MAG HYDROX/AL HYDROX/SIMETH 30 ML UNIT-DOSE CUP PO PRN (14:14)
[2022-10-07] MEDS ORDERED: LOPERAMIDE HCL 2 MG CAPSULE PO PRN (14:14)
[2022-10-07] MEDS ORDERED: BENZOCAINE/MENTHOL (CHLORASEPTIC ) LOZENGE MM PRN (14:14)
[2022-10-07] MEDS ORDERED: NICOTINE 7 MG/24 HOURS TOPICAL PATCH TD PRN (14:14)
[2022-10-07] MEDS ORDERED: ACETAMINOPHEN 325 MG TABLET (FP) PO PRN (14:14)
[2022-10-07] MEDS ORDERED: NICOTINE POLACRILEX 4 MG GUM BUC PRN (14:14)
[2022-10-07] MEDS ORDERED: MAGNESIUM HYDROX 2400MG/30ML ORAL SUSPENSION 30 ML CUP PO PRN (14:14)
[2022-10-07] MEDS: DOXYCYCLINE HYCLATE 100 MG CAPSULE PO SCH (17:12)
[2022-10-07] MEDS: MELATONIN 5 MG TABLETS PO SCH (21:35)
[2022-10-07] MEDS: LISINOPRIL 5 MG TABLET PO SCH (21:35)
[2022-10-07] MEDS: THIAMINE HCL 100 MG TABLET (FP) PO SCH (21:35)
[2022-10-08] MEDS: PRENATAL VITAMINS W/ FOLIC ACID TABLET (FP) PO SCH (10:14)
[2022-10-08] MEDS: LISINOPRIL 5 MG TABLET PO SCH ×2 (10:15→21:30)
[2022-10-08] MEDS: DOXYCYCLINE HYCLATE 100 MG CAPSULE PO SCH ×2 (10:16→17:11)
[2022-10-08] MEDS ORDERED: ALBUTEROL SO4 HFA INHALER IH PRN (11:35)
[2022-10-08] MEDS ORDERED: FLU VACC QS2022-23(6MOS UP)/PF 60 MCG/0.5 ML SYRINGE IM ONE ×2 (12:00)
[2022-10-08] MEDS: MELATONIN 5 MG TABLETS PO SCH (21:30)
[2022-10-08] MEDS: THIAMINE HCL 100 MG TABLET (FP) PO SCH (21:30)
[2022-10-08] MEDS: hydrOXYzine PAMOATE 25 MG CAPSULE (FP) PO PRN (21:32)
[2022-10-09] MEDS: PRENATAL VITAMINS W/ FOLIC ACID TABLET (FP) PO SCH (09:57)
[2022-10-09] MEDS: DOXYCYCLINE HYCLATE 100 MG CAPSULE PO SCH ×2 (09:57→17:57)
[2022-10-09] MEDS: LISINOPRIL 5 MG TABLET PO SCH ×2 (09:57→21:52)
[2022-10-09] MEDS: MELATONIN 5 MG TABLETS PO SCH (21:52)
[2022-10-09] MEDS: THIAMINE HCL 100 MG TABLET (FP) PO SCH (21:52)
[2022-10-10] MEDS: LISINOPRIL 5 MG TABLET PO SCH ×2 (10:18→21:31)
[2022-10-10] MEDS: PRENATAL VITAMINS W/ FOLIC ACID TABLET (FP) PO SCH (10:18)
[2022-10-10] MEDS: hydrOXYzine PAMOATE 25 MG CAPSULE (FP) PO PRN (21:31)
[2022-10-10] MEDS: THIAMINE HCL 100 MG TABLET (FP) PO SCH (21:31)
[2022-10-10] MEDS: MELATONIN 5 MG TABLETS PO SCH (21:31)
[2022-10-10] MEDS: SUVOREXANT 15 MG TABLET PO PRN (21:32)
[2022-10-11] MEDS: NICOTINE 10 MG CARTRIDGE (INHALER) IH PRN (06:35)
[2022-10-11] MEDS: PRENATAL VITAMINS W/ FOLIC ACID TABLET (FP) PO SCH (09:39)
[2022-10-11] MEDS: LISINOPRIL 5 MG TABLET PO SCH ×2 (09:39→21:10)
[2022-10-11] MEDS: SUVOREXANT 15 MG TABLET PO PRN (21:10)
[2022-10-11] MEDS: THIAMINE HCL 100 MG TABLET (FP) PO SCH (21:10)
[2022-10-11] MEDS: MELATONIN 5 MG TABLETS PO SCH (21:10)
[2022-10-12] MEDS: PRENATAL VITAMINS W/ FOLIC ACID TABLET (FP) PO SCH (10:00)
[2022-10-12] MEDS: LISINOPRIL 5 MG TABLET PO SCH ×2 (10:01→21:23)
[2022-10-12] MEDS: NICOTINE 10 MG CARTRIDGE (INHALER) IH PRN ×2 (10:01→21:24)
[2022-10-12] MEDS: MELATONIN 5 MG TABLETS PO SCH (21:23)
[2022-10-12] MEDS: THIAMINE HCL 100 MG TABLET (FP) PO SCH (21:23)
[2022-10-12] MEDS: hydrOXYzine PAMOATE 25 MG CAPSULE (FP) PO PRN (21:23)
[2022-10-12] MEDS: SUVOREXANT 15 MG TABLET PO PRN (21:24)
[2022-10-13] MEDS: PRENATAL VITAMINS W/ FOLIC ACID TABLET (FP) PO SCH (09:38)
[2022-10-13] MEDS: LISINOPRIL 5 MG TABLET PO SCH ×2 (09:39→21:16)
[2022-10-13] MEDS: NICOTINE 10 MG CARTRIDGE (INHALER) IH PRN (09:40)
[2022-10-13] MEDS: THIAMINE HCL 100 MG TABLET (FP) PO SCH (21:16)
[2022-10-13] MEDS: hydrOXYzine PAMOATE 25 MG CAPSULE (FP) PO PRN (21:16)
[2022-10-13] MEDS: SUVOREXANT 15 MG TABLET PO PRN (21:17)
[2022-10-13] MEDS ORDERED: INSULIN (LEVEMIR) 100 UNITS/ML UNITS SQ ONE (22:13)
[2022-10-13] MEDS ORDERED: INSULIN (NOVOLOG) ASPART 100 UNITS/ML 10ML VIAL ONE (22:13)
[2022-10-14] MEDS: NICOTINE 10 MG CARTRIDGE (INHALER) IH PRN (09:26)
[2022-10-14] MEDS: PRENATAL VITAMINS W/ FOLIC ACID TABLET (FP) PO SCH (09:26)
[2022-10-14] MEDS: LISINOPRIL 5 MG TABLET PO SCH ×2 (09:26→21:19)
[2022-10-14] MEDS: SUVOREXANT 15 MG TABLET PO PRN (21:18)
[2022-10-14] MEDS: THIAMINE HCL 100 MG TABLET (FP) PO SCH (21:19)
[2022-10-14] MEDS: hydrOXYzine PAMOATE 25 MG CAPSULE (FP) PO PRN (21:19)
[2022-10-15] MEDS: NICOTINE 10 MG CARTRIDGE (INHALER) IH PRN ×2 (06:30→21:34)
[2022-10-15] MEDS: PRENATAL VITAMINS W/ FOLIC ACID TABLET (FP) PO SCH (09:40)
[2022-10-15] MEDS: LISINOPRIL 5 MG TABLET PO SCH ×2 (09:40→21:35)
[2022-10-15] MEDS: hydrOXYzine PAMOATE 25 MG CAPSULE (FP) PO PRN (21:35)
[2022-10-15] MEDS: SUVOREXANT 15 MG TABLET PO PRN (21:35)
[2022-10-15] MEDS: THIAMINE HCL 100 MG TABLET (FP) PO SCH (21:35)
[2022-10-16] MEDS: NICOTINE 10 MG CARTRIDGE (INHALER) IH PRN ×2 (06:55→21:33)
[2022-10-16] MEDS: PRENATAL VITAMINS W/ FOLIC ACID TABLET (FP) PO SCH (09:16)
[2022-10-16] MEDS: LISINOPRIL 5 MG TABLET PO SCH ×2 (09:16→21:32)
[2022-10-16 20:49] VITALS: RESP 18
[2022-10-16] MEDS: THIAMINE HCL 100 MG TABLET (FP) PO SCH (21:32)
[2022-10-16] MEDS: hydrOXYzine PAMOATE 25 MG CAPSULE (FP) PO PRN (21:32)
[2022-10-16] MEDS ORDERED: SUVOREXANT 15 MG TABLET PO PRN (22:00)
[2022-10-17] MEDS: NICOTINE 10 MG CARTRIDGE (INHALER) IH PRN (06:48)
[2022-10-17 07:51] VITALS: BP 151/90; PULSE 73; TEMP 97.3
[2022-10-17] MEDS: LISINOPRIL 5 MG TABLET PO SCH (09:04)
[2022-10-17] MEDS: PRENATAL VITAMINS W/ FOLIC ACID TABLET (FP) PO SCH (09:04)
== END 2022-10-17 09:20 | disposition home or self-care (01) | DRG 772 ==
LOC: YASAS 13:06 → Y3W 13:07 → Y3E 10-10 10:34
PROVIDERS: ADMIT Allergy & Immunology; ATTEND Psychiatry & Neurology Pain Medicine
PROC: HZ42ZZZ Group Counseling for Substance Abuse Treatment, Cognitive-Behavioral (ICD-10-PCS; principal; 2022-10-07)
DX: F10.20 Alcohol dependence, uncomplicated (principal); F17.210 Nicotine dependence, cigarettes, uncomplicated; I10 Essential (primary) hypertension; M54.59 Other low back pain; G89.29 Other chronic pain; G47.00 Insomnia, unspecified; Z91.14 Patient's other noncompliance with medication regimen
CPT/HCPCS: C9803-CS; G0008; Q2036; U0003; U0005

== ENCOUNTER 2023-03-02 10:33 | Inpatient (IN) | payer OTHER ==
[2023-03-02 11:16] VITALS: BMI 21.9
[2023-03-02] MEDS ORDERED: NICOTINE 10 MG CARTRIDGE (INHALER) IH PRN (11:54)
[2023-03-02] MEDS ORDERED: IBUPROFEN 400 MG TABLET (FP) PO PRN (11:54)
[2023-03-02] MEDS ORDERED: DICYCLOMINE HCL 10 MG CAPSULE PO PRN (11:54)
[2023-03-02] MEDS ORDERED: BENZONATATE 200 MG CAPSULE PO PRN (11:54)
[2023-03-02] MEDS ORDERED: NALOXONE HCL 0.4 MG/ML VIAL IM PRN (11:54)
[2023-03-02] MEDS ORDERED: ACETAMINOPHEN 325 MG TABLET (FP) PO PRN (11:54)
[2023-03-02] MEDS ORDERED: guaiFENesin 600 MG TABLET.ER (FP) PO PRN (11:54)
[2023-03-02] MEDS ORDERED: MAGNESIUM HYDROX 2400MG/30ML ORAL SUSPENSION 30 ML CUP PO PRN (11:54)
[2023-03-02] MEDS ORDERED: METHOCARBAMOL 500 MG TABLET PO PRN (11:54)
[2023-03-02] MEDS ORDERED: LOPERAMIDE HCL 2 MG CAPSULE PO PRN (11:54)
[2023-03-02] MEDS ORDERED: hydrOXYzine PAMOATE 25 MG CAPSULE (FP) PO PRN (11:54)
[2023-03-02] MEDS ORDERED: ONDANSETRON *ODT* 4 MG TABLET SL PRN (11:54)
[2023-03-02] MEDS ORDERED: IBUPROFEN 600 MG TABLET (FP) PO PRN (11:54)
[2023-03-02] MEDS ORDERED: diazePAM 5 MG TABLET PO PRN (11:54)
[2023-03-02] MEDS ORDERED: BISMUTH SUBSALICYLATE 524 MG/30 ML PO PRN (11:54)
[2023-03-02] MEDS ORDERED: BENZOCAINE/MENTHOL (CHLORASEPTIC ) LOZENGE MM PRN (11:54)
[2023-03-02] MEDS ORDERED: MAG HYDROX/AL HYDROX/SIMETH 30 ML UNIT-DOSE CUP PO PRN (11:54)
[2023-03-02] MEDS ORDERED: NALOXONE HCL (KLOXXADO) 8 MG SPRAY NS PRN (11:54)
[2023-03-02] MEDS ORDERED: POLYETHYLENE GLYCOL (HEALTHYLAX) 3350 17 GM PACKET PO PRN (11:54)
[2023-03-02] MEDS: PRENATAL VITAMINS W/ FOLIC ACID TABLET (FP) PO SCH (12:18)
[2023-03-02] MEDS: NICOTINE 7 MG/24 HOURS TOPICAL PATCH TD SCH (12:18)
[2023-03-02] MEDS ORDERED: diazePAM 5 MG TABLET ONE (12:28)
[2023-03-02] MEDS ORDERED: NICOTINE 7 MG/24 HOURS TOPICAL PATCH TD ONE (12:29)
[2023-03-02] MEDS ORDERED: hydrOXYzine PAMOATE 25 MG CAPSULE (FP) PO ONE (12:29)
[2023-03-02] MEDS ORDERED: PRENATAL VITAMINS W/ FOLIC ACID TABLET (FP) PO ONE (12:29)
[2023-03-02 16:31] LABS: HEMOGLOBIN 14.9 GM/dL (11.7-16.9); MCH 31.3 pg (25.7-33.7); MCHC 34.6 g/dl (32.0-35.9); MEAN CELL VOLUME 90.3 fl (80-96); MEAN PLT VOLUME 8.2 fl (7.5-11.1); PLATELET COUNT 223 10^3/uL (134-434); RBC 4.76 M/mm3 (4.00-5.60); RDW 13.7 % (11.9-15.9); WHITE BLOOD COUNT 7.7 K/mm3 (4.0-10.0)
[2023-03-02 16:35] LABS: POTASSIUM 3.8 mmol/L (3.5-5.1)
[2023-03-02 16:37] LABS: CALCIUM 8.4 mg/dL (8.5-10.1)
[2023-03-02 16:38] LABS: ALBUMIN 3.4 g/dl (3.4-5.0); BLOOD UREA NITROGEN 6.2 mg/dL (7-18)
[2023-03-02 16:41] LABS: CREATININE 0.8 mg/dL (0.55-1.3)
[2023-03-02 16:42] LABS: BILIRUBIN,TOTAL 0.2 mg/dL (0.2-1)
[2023-03-02 16:43] LABS: TOT PROT 6.6 g/dl (6.4-8.2)
[2023-03-02] MEDS: diazePAM 5 MG TABLET PO SCH ×2 (17:31→22:37)
[2023-03-02] MEDS ORDERED: MELATONIN 5 MG TABLETS PO SCH (22:00)
[2023-03-02] MEDS: THIAMINE HCL 100 MG TABLET (FP) PO SCH (22:36)
[2023-03-03] MEDS: diazePAM 5 MG TABLET PO SCH ×4 (05:15→22:28)
[2023-03-03] MEDS: PRENATAL VITAMINS W/ FOLIC ACID TABLET (FP) PO SCH (10:58)
[2023-03-03] MEDS: NICOTINE 7 MG/24 HOURS TOPICAL PATCH TD SCH (10:58)
[2023-03-03] MEDS ORDERED: SUVOREXANT 10 MG TABLET PO PRN (22:00)
[2023-03-03] MEDS: THIAMINE HCL 100 MG TABLET (FP) PO SCH (22:27)
[2023-03-04] MEDS: diazePAM 5 MG TABLET PO SCH ×2 (05:15→13:24)
[2023-03-04] MEDS: PRENATAL VITAMINS W/ FOLIC ACID TABLET (FP) PO SCH (10:18)
[2023-03-04] MEDS: NICOTINE 7 MG/24 HOURS TOPICAL PATCH TD SCH (10:18)
[2023-03-04 21:29] VITALS: BP 153/114; PULSE 77; RESP 16; TEMP 97.8
[2023-03-04] MEDS ORDERED: CALCIUM CARBONATE 650 MG TABLET PO SCH (22:00)
[2023-03-05] MEDS ORDERED: diazePAM 5 MG TABLET PO SCH (06:00)
[2023-03-06] MEDS ORDERED: diazePAM 5 MG TABLET PO ONE (06:00)
== END 2023-03-04 21:10 | disposition left against medical advice (07) | DRG 770 ==
LOC: YASAS 10:33 → Y6N 12:41
PROVIDERS: ADMIT Allergy & Immunology; ATTEND Surgery
PROC: HZ2ZZZZ Detoxification Services for Substance Abuse Treatment (ICD-10-PCS; principal; 2023-03-02)
DX: F10.230 Alcohol dependence with withdrawal, uncomplicated (principal); F12.10 Cannabis abuse, uncomplicated; F17.210 Nicotine dependence, cigarettes, uncomplicated; F19.282 Other psychoactive substance dependence with psychoactive substance-induced sleep disorder; E83.51 Hypocalcemia; G47.00 Insomnia, unspecified; I10 Essential (primary) hypertension; M54.50 Low back pain, unspecified; G89.29 Other chronic pain; R76.11 Nonspecific reaction to tuberculin skin test without active tuberculosis; Z88.0 Allergy status to penicillin
CPT/HCPCS: 36415; 80053; 82140; 85027; 86780; C9803-CS; U0003; U0005

== ENCOUNTER 2023-12-03 10:35 | Inpatient (IN) | payer OTHER ==
[2023-12-03 11:20] VITALS: BMI 20.2
[2023-12-03] MEDS ORDERED: NALOXONE HCL 0.4 MG/ML VIAL IM PRN (12:24)
[2023-12-03] MEDS ORDERED: POLYETHYLENE GLYCOL (HEALTHYLAX) 3350 17 GM PACKET PO PRN (12:24)
[2023-12-03] MEDS ORDERED: BENZOCAINE/MENTHOL (CHLORASEPTIC ) LOZENGE MM PRN (12:24)
[2023-12-03] MEDS ORDERED: NALOXONE HCL (KLOXXADO) 8 MG SPRAY NS PRN (12:24)
[2023-12-03] MEDS ORDERED: ONDANSETRON *ODT* 4 MG TABLET SL PRN (12:24)
[2023-12-03] MEDS ORDERED: BENZONATATE 200 MG CAPSULE PO PRN (12:24)
[2023-12-03] MEDS ORDERED: NICOTINE POLACRILEX 2 MG GUM BUC PRN (12:24)
[2023-12-03] MEDS ORDERED: ACETAMINOPHEN 325 MG TABLET (FP) PO PRN (12:24)
[2023-12-03] MEDS ORDERED: DICYCLOMINE HCL 10 MG CAPSULE PO PRN (12:24)
[2023-12-03] MEDS ORDERED: MAG HYDROX/AL HYDROX/SIMETH 30 ML UNIT-DOSE CUP PO PRN (12:24)
[2023-12-03] MEDS ORDERED: MAGNESIUM HYDROX 2400MG/30ML ORAL SUSPENSION 30 ML CUP PO PRN (12:24)
[2023-12-03] MEDS ORDERED: IBUPROFEN 400 MG TABLET (FP) PO PRN (12:24)
[2023-12-03] MEDS ORDERED: LOPERAMIDE HCL 2 MG CAPSULE PO PRN (12:24)
[2023-12-03] MEDS ORDERED: BISMUTH SUBSALICYLATE 524 MG/30 ML PO PRN (12:24)
[2023-12-03] MEDS ORDERED: guaiFENesin 600 MG TABLET.ER (FP) PO PRN (12:24)
[2023-12-03] MEDS: LISINOPRIL 5 MG TABLET PO SCH (14:37)
[2023-12-03] MEDS ORDERED: LORazepam 1 MG TABLET PO PRN (14:40)
[2023-12-03] MEDS: LORazepam 2 MG TABLET PO ONE (15:40)
[2023-12-03] MEDS: LORazepam 2 MG TABLET PO SCH (16:52)
[2023-12-03] MEDS: hydrOXYzine PAMOATE 25 MG CAPSULE (FP) PO PRN (16:53)
[2023-12-03] MEDS: cloNIDine HCL 0.1 MG TABLET PO PRN (21:55)
[2023-12-03] MEDS: IBUPROFEN 600 MG TABLET (FP) PO PRN (21:55)
[2023-12-03] MEDS: THIAMINE HCL 100 MG TABLET (FP) PO SCH (21:55)
[2023-12-03] MEDS: MELATONIN 5 MG TABLETS PO SCH (21:55)
[2023-12-04] MEDS: NICOTINE 14 MG/24 HOURS TOPICAL PATCH TD SCH (10:09)
[2023-12-04] MEDS: PRENATAL VITAMINS W/ FOLIC ACID TABLET (FP) PO SCH (10:57)
[2023-12-04 11:52] LABS: HEMATOCRIT 43.2 % (35.4-49); HEMOGLOBIN 15.2 GM/dL (11.7-16.9); MCH 31.9 pg (25.7-33.7); MCHC 35.3 g/dl (32.0-35.9); MEAN CELL VOLUME 90.6 fl (80-96); MEAN PLT VOLUME 8.3 fl (7.5-11.1); PLATELET COUNT 232 10^3/uL (134-434); RBC 4.77 M/mm3 (4.00-5.60); RDW 13.9 % (11.9-15.9)
[2023-12-04 12:21] LABS: POTASSIUM 4.3 mmol/L (3.5-5.1)
[2023-12-04 12:30] LABS: ALBUMIN 3.4 g/dl (3.4-5.0); BLOOD UREA NITROGEN 7.5 mg/dL (7-18)
[2023-12-04 12:31] LABS: TOT PROT 6.7 g/dl (6.4-8.2)
[2023-12-04 12:39] LABS: BILIRUBIN,TOTAL 0.4 mg/dL (0.2-1)
[2023-12-04] MEDS: METHOCARBAMOL 500 MG TABLET PO PRN (22:26)
[2023-12-05] MEDS: LORazepam 1 MG TABLET PO SCH (05:27)
[2023-12-06] MEDS ORDERED: LORazepam 0.5 MG TABLET PO PRN
[2023-12-06] MEDS: LORazepam 0.5 MG TABLET PO SCH (06:00)
[2023-12-06 09:25] VITALS: BP 126/93; PULSE 90; RESP 20; TEMP 97.5
[2023-12-07] MEDS ORDERED: LORazepam 0.5 MG TABLET PO ONE (05:00)
== END 2023-12-06 10:00 | disposition home or self-care (01) | DRG 775 ==
LOC: YASAS 10:35 → Y6N 13:08
PROVIDERS: ADMIT Allergy & Immunology; ATTEND Surgery
PROC: HZ2ZZZZ Detoxification Services for Substance Abuse Treatment (ICD-10-PCS; principal; 2023-12-03)
DX: F10.230 Alcohol dependence with withdrawal, uncomplicated (principal); F12.20 Cannabis dependence, uncomplicated; F17.210 Nicotine dependence, cigarettes, uncomplicated; U07.1 COVID-19; M54.50 Low back pain, unspecified; G89.29 Other chronic pain; R76.11 Nonspecific reaction to tuberculin skin test without active tuberculosis; R63.4 Abnormal weight loss; Z68.20 Body mass index [BMI] 20.0-20.9, adult; Z88.0 Allergy status to penicillin
CPT/HCPCS: 36415; 71046-TC-FY; 80053; 80307; 85027; 86780; 87635; 87811